=== PATIENT | male | born 1940 | race Caucasian/White ===

== ENCOUNTER 2024-02-11 15:46 | Emergency (ER) | payer MEDICARE, SELFPAY ==
--- NOTE | ~2024-02-11 | CT_ITS ---
EXAMINATION: CT brain wo con DATE: 02/11/2024 17:16 INDICATION: fall . TECHNIQUE: Computed tomography (CT) of the head was performed without intravenous contrast. The mA wa s adjusted according to patient size. Iterative reconstruction technique was employed. The dose-lengt h product was 832.33 mGy-cm. COMPARISON: 10/04/2015. FINDINGS: No acute intracranial hemorrhage or extra-axial fluid collection. No mass or herniation. Prominent lateral, third, and fourth ventricles, increased since the prior kalina dy. No acute ischemic infarct. Unremarkable dural venous sinus attenuation. No acute osseous abnormality. Right frontal contusion. The aerated spaces are clear. Severe chronic white matter change. Atherosclerotic intracranial calcification. 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 IMPRESSION: Increased size of the lateral, third, and fourth ventricles, may represent progressive interval atrop hy versus hydrocephalus. Consider normal pressure hydrocephalus in the differential. No acute intracranial hemorrhage or acute large vessel infarct Reviewed, dictated and finalized at location K. IMPRESSION: Increased size of the lateral, third, and fourth ventricles, may represent prog ressive interval atrophy versus hydrocephalus. Consider normal pressure hydroce phalus in the differential. No acute intracranial hemorrhage or acute large vessel infarct
--- NOTE | ~2024-02-11 | CT_ITS ---
EXAMINATION: CT cervical spine wo con DATE: 02/11/2024 17:15 INDICATION: fall TECHNIQUE: Computed tomography (CT) of the cervical spine was performed without intravenous contrast. Automated exposure control and iterative reconstruction technique were employed. The dose-length pro duct was 912.63 mGy-cm. COMPARISON: None. FINDINGS: Vertebral Body Alignment: 2 mm anterolisthesis at C4-5, presumably on a degenerative basis. Craniocervical and atlantoaxial alignment: Moderate degenerative change. Alignment intact. Osseous structures/fracture: No evidence of a lytic or blastic process in the visualized spine. No e vidence of acute fracture. Cervical soft tissues: The paraspinal soft tissues planes are maintained. Degenerative changes: Multilevel severe degenerative disc disease. Multilevel moderate-severity facet arthropathy. Multilevel moderate and severe degrees of neural foraminal narrowing secondary to degen erative changes. No severe central canal narrowing. IMPRESSION: No acute fracture or traumatic malalignment in the cervical spine. Reviewed, dictated and finalized at location K.
[2024-02-11 15:45] VITALS: BP 161/75; PULSE 67; RESP 20; TEMP 36.7; O2SAT 97
--- NOTE | 2024-02-11 16:05 | ED_ITS ---
HPI - Fall General Chief Complaint: Fall Stated Complaint: fall/ lac Time Seen by Provider: 02/11/24 15:48 History of Present Illness HPI Narrative: [age] old male present to the emergency department from a local memory care unit after having a ground level fall. Patient is unable to recall the events of the fall. Patient did receive a laceration to his forehead. Patient denies any pain or injury. Related Data Allergies Allergy/AdvReac Type Severity Reaction Status Date / Time Sulfa (Sulfonamide Allergy Unknown Verified 10/04/15 12:50 Antibiotics) Review of Systems Review of Systems: All systems reviewed & are unremarkable except as noted in HPI and below Exam Narrative: APPEARANCE: Well appearing, no pain, no distress, well-nourished. HEAD: normocephalic, forehead laceration. EYES: PERRLA/EOMI, conjunctivae clear. NOSE: Normal no drainage EARS:TMS clear with good light reflex. THROAT: Pharynx clear, no exudate. NECK: Supple. No adenopathy, no masses. RESPIRATORY: Airway patent, respirations nonlabored. Clear to auscultation bilaterally, no rales, rhonchi, wheezing. CARDIOVASCULAR: Regular rate and rhythm without murmurs rubs or gallops. ABDOMINAL: Soft, nontender, nondistended, normal bowel sounds MUSCULOSKELETAL: Moves all extremities. Strength/ROM intact, No edema, No calf tenderness. NEURO: Alert. Cranial nerves II through XII intact. Good gait. Good coordination SKIN: Forehead laceration Course Course Emergency Course: Laceration was repaired, patient's imaging was negative and patient was discharged back to his care facility. Vital Signs Vital signs: Vital Signs Temperature 98.1 F 02/11/24 15:45 Pulse Rate 67 02/11/24 15:45 Respiratory Rate 20 02/11/24 15:45 Blood Pressure 161/75 H 02/11/24 15:45 Pulse Oximetry 97 02/11/24 15:45 Oxygen Delivery Room Air 02/11/24 15:45 Temperature 98.1 F 02/11/24 15:45 Pulse Rate 69 02/11/24 18:16 Respiratory Rate 16 02/11/24 18:16 Blood Pressure 137/70 02/11/24 18:16 Pulse Oximetry 97 02/11/24 18:16 Oxygen Delivery Room Air 02/11/24 15:45 Procedures Laceration Laceration 1: Time: 17:28 Site: face Size (cm): 4 Description: linear Depth: simple, single layer Local Anesthetic: lidocaine 1% and with epi Amount of anesthesia used (mL): 3 Pre-repair: wound explored and irrigated ====== Skin Level ====== Skin layer closed with: nylon Size (cm): 6-0 Number of sutures: 5 ====== Subcutaneous Layer ====== ====== Muscle Layer ====== ====== Tendon Layer ====== Discharge Plan Discharge Clinical Impression: Laceration of head, Head injury Patient Disposition: NH Intermediate/Asst Living Condition: Stable Instructions: Antibiotic Form, Laceration (ED) Additional Instructions: Sutures need to be removed in 5-7 days. Have close follow-up with your primary care physician. Wound care as directed Follow-up/Referrals: BLAISE SOSA,HAMLET Lopez M.D. [Non-Staff] -
[2024-02-11 18:16] VITALS: BP 137/70; PULSE 69; RESP 16; O2SAT 97
== END 2024-02-11 20:08 ==
PROVIDERS: Emergency Provider Emergency Medicine
DX: S01.81XA Laceration without foreign body of other part of head, initial encounter (principal); W19.XXXA Unspecified fall, initial encounter
CPT/HCPCS: 12013; 70450; 72125; 99284

== ENCOUNTER 2024-04-17 08:13 | Inpatient (IN) | payer MEDICARE, SELFPAY ==
[2024-04-17] VITALS (35 sets, daily range): BP systolic 132–189; BP diastolic 50–88; PULSE 67–90; RESP 13–23; TEMP 36.1–36.7; O2SAT 92–97; BMI 26.3
--- NOTE | ~2024-04-17 | CT_ITS ---
EXAMINATION: CT cervical spine wo con DATE: 04/17/2024 08:59 INDICATION: Unwitnessed fall. Dementia. TECHNIQUE: Computed tomography (CT) of the cervical spine was performed without intravenous contrast. Automated exposure control and iterative reconstruction technique were employed. The dose-length pro duct was 466.12 mGy-cm. COMPARISON: 02/11/2024 FINDINGS: Severe osteoarthritis at the atlantoaxial articulation. Unchanged 2 mm anterolisthesis C4 on C5. Unch anged chronic mild anterior wedging at C6 and T2. No acute fracture. Moderate disc height loss at C5- C6 and C6-C7. Severe disc height loss at T2-T3 and T3-T4. Mild disc height loss at remaining cervical and upper thoracic levels. Severe bilateral uncovertebral osteoarthritis at C5-C6 and C6-C7. Additio nal severe osteoarthritis at the left C4-C5 and right C2-C3, C3-C4 and C7-T1 facet joints. Mild to mo derate osteoarthritis the remaining cervical facet and uncovertebral joints. There is associated mode rate neural foraminal stenosis bilaterally at C3-C4 through C7-T1 sparing the right C4-C5 neural fora chris is only mild stenosis. Additional mild neural foraminal stenosis on the right at C2-C3. Scleroti c bone island at the T1 spinous process. Atherosclerotic calcifications at the bilateral carotid bulb s. Multinodular goiter with a couple 1.5 cm nodule right thyroid. Visualized apices of the lungs are clear. IMPRESSION: 1. Moderate to severe cervical and upper thoracic spondylosis. No acute osseous abnormality. Reviewed, dictated and finalized at location B. COMA SPECIALIST
--- NOTE | ~2024-04-17 | XR_ITS ---
EXAMINATION: XR hip LT 2V w AP pelvis DATE: 04/17/2024 09:13 INDICATION: Left hip pain post fall TECHNIQUE: Anteroposterior view of the pelvis and anteroposterior and cross-table lateral views of th e left hip were obtained. COMPARISON: None. FINDINGS: Comminuted intratrochanteric fracture of the proximal left femur. There is 1.5 cm medial distraction of the lesser trochanteric fragment. There is approximately 15 degrees varus angulation and of simila r posterior displacement of the femoral head and neck fragment relative to the diaphyseal fracture. N o other fractures identified. Mild bilateral hip and sacroiliac osteoarthritis. Moderate to severe lo wer lumbar spondylosis. Bilateral osteitis contents and celiac. Atherosclerotic calcific lesion along the bilateral femoral arteries. IMPRESSION: 1. Mildly displaced and angulated comminuted intertrochanteric fracture of the proximal left femur. Reviewed, dictated and finalized at location B. Y GRADER AND BLENDER
--- NOTE | ~2024-04-17 | XR_ITS ---
EXAMINATION: XR chest 1V portable DATE: 04/18/2024 08:29 INDICATION: Pneumonia TECHNIQUE: frontal view of the chest was obtained. COMPARISON: Chest radiograph dated 04/17/2024 FINDINGS: Persistent mild patchy airspace opacities at the left lung base which could represent atelectasis or pneumonia. Right lung is clear. No pleural effusion or pneumothorax. Cardiomegaly. Dual lead pacemake r seen with leads projecting over the expected locations of the right atrium and right ventricle. IMPRESSION: 1. Persistent mild patchy airspace opacities in the left lower lung zone which could represent atelec tasis or pneumonia. Reviewed, dictated and finalized at location B. NDER PRESS FEEDER IMPRESSION: 1. Persistent mild patchy airspace opacities in the left lower lung zone which could represent atelectasis or pneumonia.
--- NOTE | ~2024-04-17 | CT_ITS ---
EXAMINATION: CT brain wo con DATE: 04/17/2024 08:58 INDICATION: Unwitnessed fall. Dementia. TECHNIQUE: Computed tomography (CT) of the head was performed without intravenous contrast. Sagittal and coronal reconstructions were performed. The mA was adjusted according to patient size. Iterative reconstruction technique was employed. The dose-length product was 1513.33 mGy-cm. COMPARISON: head CT dated 02/11/2024 FINDINGS: No fracture. Unchanged old lacunar infarct at the right basal ganglia. There is extensive scattered w emery matter hypoattenuation consistent with chronic small vessel ischemic disease. No acute intracran ial hemorrhage, acute infarction or abnormal extra axial fluid collection. Symmetric prominence of th e sulci, ventricles and subarachnoid spaces about the cerebral hemispheres consistent with moderate t o severe age-appropriate diffuse cerebral and cerebellar volume loss. No mass/mass effect. Mild mucos al thickening in the paranasal sinuses with some bubbly mucus in the right sphenoid sinus. The orbits and mastoid air cells are normal. Intracranial calcified cerebral atherosclerosis is noted. IMPRESSION: 1. No fracture or acute intracranial process. 2. 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 3. Age-related changes including moderate to severe diffuse volume loss and extensive white matter hy poattenuation consistent with chronic small vessel ischemic disease. Reviewed, dictated and finalized at location B. BALL SCOUT IMPRESSION: 1. No fracture or acute intracranial process. 2. 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 3. Age-related changes including moderate to severe diffuse volume loss and ext ensive white matter hypoattenuation consistent with chronic small vessel ischem ic disease.
--- NOTE | ~2024-04-17 | XR_ITS ---
EXAMINATION: XR surgery orthopedic DATE: 04/18/2024 14:42 INDICATION: Left hip intertrochanteric nailing TECHNIQUE: 5 fluoroscopic images of the left femur were obtained during procedure performed by Dr. Gerard clifton. Radiologist was not present for the imaging or procedure. The amount of fluoroscopy time used during this procedure was 1.8 minutes. Total DAP was 8.724 Gycm^2 COMPARISON: Left hip radiographs dated 04/17/2024 FINDINGS: Interval reduction of the previously noted mildly comminuted intratrochanteric fracture of the proxim al left femur which is now in near-anatomic alignment. The fracture is not fixed with an antegrade in tramedullary elen with and femoral neck dynamic compression screw and second smaller diameter femoral neck screw as well as a subtrochanteric interlocking screw. No new fractures identified. Mild osteoar thritis at the left hip. Atherosclerotic calcification is along the left femoral artery. IMPRESSION: 1. Near-anatomic alignment post open reduction internal fixation of a comminuted intratrochanteric fr acture of the proximal left femur. See procedure note for further detail. Reviewed, dictated and finalized at location B. SHELVER IMPRESSION: 1. Near-anatomic alignment post open reduction internal fixation of a comminute d intratrochanteric fracture of the proximal left femur. See procedure note for further detail.
--- NOTE | ~2024-04-17 | XR_ITS ---
EXAMINATION: XR chest 1V DATE: 04/17/2024 09:13 INDICATION: Unwitnessed fall with left hip fracture. TECHNIQUE: frontal view of the chest was obtained. COMPARISON: Chest radiograph dated 10/04/2015 FINDINGS: Mild opacities with increased interstitial pattern and bronchial wall thickening in the left lower jorge ng zone. Right lung remains clear. No pleural effusion or pneumothorax. Cardiomegaly. Dual lead pacem francisco javier seen with leads projecting over the expected locations of the right atrium and right ventricle. IMPRESSION: 1. Mild opacities with bronchial wall thickening in the left lower lung zone which could represent as ymmetric mild pulmonary edema or pneumonia. 2. Cardiomegaly. Reviewed, dictated and finalized at location B. VIDUAL PENSION ADVISER IMPRESSION: 1. Mild opacities with bronchial wall thickening in the left lower lung zone wh ich could represent asymmetric mild pulmonary edema or pneumonia. 2. Cardiomegaly.
--- NOTE | 2024-04-17 10:06 | ECG_ITS ---
Test Date: 2024-04-17 13:29:07 Measurements Intervals [place] Rate: 88 P: 0 IN: 0 QRS: -56 QRSD: 181 T: 92 QT: 432 QTc: 525 Interpretive Statements ATRIAL SENSE ELECTRONIC VENTRICULAR PACEMAKER WITH INHIBITION BORDERLINE T WAVE ABNORMALITY- ANTEROLATERAL LEADS BASELINE ARTIFACT- I, AVR, AVL, AVF, V1-V6 NO FURTHER INTERPRETATION IS POSSIBLE BORDERLINE ECG No previous ECG available for comparison Electronically Signed On 04-17-2024 13:32:23 STRATEGIC PARTNERSHIP REPRESENTATIVE by Carlin Vo D.O.
[2024-04-17] MEDS: HYDROmorphone HCL INJ (*CRX) 1 MG/ML SYR 0.5 MG IV PUSH (11:38)
[2024-04-17] MEDS: SODIUM CHLORIDE 0.9% IV 1,000 ML 999 ML IV CONT (11:38)
[2024-04-17 11:44] LABS: Basophils Percent Auto 0.2 % (0.2-1.2); Eosinophils Percent Auto 0.1 % (0-4.4); Hematocrit 35.7 % (42.0-52.0); Hemoglobin 12.3 g/dL (14.0-18.0); Immature Granulocyte Absolute 0.09 K/mm3 (0.00-0.031); Immature Granulocyte Percent A 0.6 % (0-0.5); Lymphocytes Absolute Auto 0.77 K/mm3 (0.9-3.2); Lymphocytes Percent Auto 5.1 % (18.3-44.2); Mean Corpuscular HGB Conc 34.5 g/dl (32-36); Mean Corpuscular Hemoglobin 30.1 pg (26-34); Mean Corpuscular Volume 87.5 fl (80-100); Mean Platelet Volume 10.3 fl (7.4-10.4); Monocytes Absolute Auto 0.7 K/mm3 (0.1-0.6); Monocytes Percent Auto 4.9 % (2.6-8.5); Neutrophils Absolute Auto 13.4 K/mm3 (1.3-6.7); Neutrophils Percent Auto 89.1 % (45.5-73.1); Platelet Count Result 177 k/mm3 (150-375); Red Blood Count 4.08 M/mm3 (4.6-6.20); Red Cell Distribution Width 13.3 % (11.5-14.5)
[2024-04-17 11:55] LABS: Prothrombin Time 13.8 Seconds (11.1-14.7)
[2024-04-17 11:56] LABS: Partial Thromboplastin Time 29.1 Seconds (22.3-36.8)
[2024-04-17 11:58] LABS: Alanine Aminotransferase 35 U/L (6-50); Albumin Level 3.9 g/dL (3.5-5.1); Alkaline Phosphatase 106 U/L (38-126); Anion Gap 4 mmol/L (4-12); Aspartate Amino Transferase 31 U/L (17-59); Bilirubin,Total 0.8 mg/dL (0.2-1.3); Blood Urea Nitrogen 11 mg/dL (9-20); Calcium 9.3 mg/dL (8.4-10.2); Carbon Dioxide 26 mmol/L (22-30); Chloride 109 mmol/L (98-107); Estimated Glomerular Filt Rate > 60; Glucose 112 mg/dL (65-110); Potassium 3.7 mmol/L (3.4-5.0); Sodium 139 mmol/L (137-145)
--- NOTE | 2024-04-17 12:08 | PC.NURSE ---
UA obtained via straight cath. Difficult to pass catheter. Attempted deng catheter placement unsuccessfully x 2 attempts. Clean depends applied on pt. Medicated per MAR. Will attempt coude next. Pt given additional warm blankets. Call light in reach.
[2024-04-17 12:39] LABS: Add Urine Microscopic? YES; Appearance Urine Cloudy (Clear); Bacteria Urine None Seen /hpf; Bilirubin Urine Negative (Negative); Blood Urine Negative (Negative); Color Urine Yellow (Yellow); Glucose Urine UA Negative (Negative); Ketones Urine Negative (Negative); Leukocyte Esterase Ur Negative LEU/UL (Negative); Nitrate Urine Negative (Negative); Non Pathogenic Casts 0-2; Protein Urine Negative (Negative); RBC Urine 0-2 /hpf (0-2); Specific Grav Ur 1.016 (1.001-1.035); Squamous Epithelial Cell Urine None Seen /hpf (Few); WBC Urine 0-5 /hpf (0-3); pH Urine 7.5 (5.0-9.0)
--- NOTE | 2024-04-17 12:54 | ED.GENADULT ---
HPI - General Adult General Chief complaint: Fall Stated complaint: unwitnessed glf, L hip pain Time Seen by Provider: 04/17/24 08:24 History of Present Illness HPI narrative: This is an 84-year-old male with severe dementia presenting after a unwitnessed ground level far. patient has severe dementia and cannot provide much meaningful history. The interview other than his left hip hurts. He is denying any other complaints. Related Data Allergies Allergy/AdvReac Type Severity Reaction Status Date / Time Sulfa (Sulfonamide Allergy Unknown Unknown Verified 04/17/24 08:29 Antibiotics) Exam Narrative: APPEARANCE: No apparent distress. Head: atraumatic. EYES: EOMI, NOSE: Atraumatic NECK: Trachea midline RESPIRATORY: No increased rate of breathing clear to auscultation CARDIOVASCULAR: RRR, no peripheral edema ABDOMINAL: Non-distended MUSCULOSKELETAl: Left leg is shortened laterally rotated, foot is neurovascularly intact NEURO: Alert. Moving 4/4 extremities SKIN:: Warm, dry. Normal color PSYCHIATRIC: Normal affect Course Vital Signs Vital signs: Vital Signs Temperature 96.9 F L 04/17/24 08:15 Pulse Rate 73 04/17/24 08:15 Respiratory Rate 16 04/17/24 08:15 Blood Pressure 156/55 H 04/17/24 08:15 Pulse Oximetry 95 04/17/24 08:15 Oxygen Delivery Room Air 04/17/24 08:15 Temperature 96.9 F L 04/17/24 08:15 Pulse Rate 81 04/17/24 11:32 Respiratory Rate 22 H 04/17/24 11:32 Blood Pressure 135/88 04/17/24 11:32 Pulse Oximetry 97 04/17/24 11:32 Oxygen Delivery Room Air 04/17/24 08:15 Medical Decision Making [facility] Narrative Medical decision making narrative: -Course: 84-year-old male dementia presenting after a ground level fall. Patient found have a left intertrochanteric hip fracture. Also found have pneumonia on x-ray with a white count of 15. No oxygen requirements. Patient started on ceftriaxone and azithromycin. Given fluid resuscitation and pain control. Patient be admitted the hospital for further management. -DDX includes but is not limited to: Hip fracture, bony injury, soft tissue injury sepsis UTI pneumonia dehydration -Co-morbidities complicating care: dementia -Independent interpretation of studies: labs and imaging reviewed -Discussion of Management/Consultants: Jean Ferris -Shared decision making / Disposition: Admitted Vital Signs Vital Signs: Vital Signs Temperature 96.9 F L 04/17/24 08:15 Pulse Rate 73 04/17/24 08:15 Respiratory Rate 16 04/17/24 08:15 Blood Pressure 156/55 H 04/17/24 08:15 Pulse Oximetry 95 04/17/24 08:15 Oxygen Delivery Room Air 04/17/24 08:15 Temperature 96.9 F L 04/17/24 08:15 Pulse Rate 81 04/17/24 11:32 Respiratory Rate 22 H 04/17/24 11:32 Blood Pressure 135/88 04/17/24 11:32 Pulse Oximetry 97 04/17/24 11:32 Oxygen Delivery Room Air 04/17/24 08:15 Lab Data 04/17/24 11:39 04/17/24 11:39 Labs: Lab Results 04/17/24 04/17/24 Range/Units 11:39 12:03 WBC 15.0 H (4.5-10.0) K/mm3 RBC 4.08 L (4.6-6.20) M/mm3 Hgb 12.3 L (14.0-18.0) g/dL Hct 35.7 L (42.0-52.0) % MCV 87.5 (80-100) fl MCH 30.1 (26-34) pg MCHC 34.5 (32-36) g/dl RDW 13.3 (11.5-14.5) % Plt Count 177 (150-375) k/mm3 MPV 10.3 (7.4-10.4) fl Immature Gran % (Auto) 0.6 H (0-0.5) % Neut % (Auto) 89.1 H (45.5-73.1) % Lymph % (Auto) 5.1 L (18.3-44.2) % [place] % (Auto) 4.9 (2.6-8.5) % Eos % (Auto) 0.1 (0-4.4) % Baso % (Auto) 0.2 (0.2-1.2) % Lymph # (Auto) 0.77 L (0.9-3.2) K/mm3 [place] # (Auto) 0.7 H (0.1-0.6) K/mm3 Eos # (Auto) 0.0 (0-0.3) K/mm3 Baso # (Auto) 0.0 (0.0-0.1) K/mm3 Abs Immat Gran (auto) 0.09 H (0.00-0.031) K/mm3 Absolute Neuts (auto) 13.4 H (1.3-6.7) K/mm3 Absolute Nucleated RBC 0.000 (0.0-0.012) K/mm3 Nucleated RBC % 0.0 (0.0-0.2) % PT 13.8 (11.1-14.7) Seconds INR 1.0 APTT 29.1 (22.3-36.8) Seconds Sodium 139 (137-145) mmol/L Potassium 3.7 (3.4-5.0) mmol/L Chloride 109 H (98-107) mmol/L Carbon Dioxide 26 (22-30) mmol/L Anion Gap 4 (4-12) mmol/L BUN 11 (9-20) mg/dL Creatinine 0.60 L (0.7-1.3) mg/dL Estim Creat Clear Calc Not Reportable Estimated GFR > 60 (59 - ) Glucose 112 H (65-110) mg/dL Calcium 9.3 (8.4-10.2) mg/dL Total Bilirubin 0.8 (0.2-1.3) mg/dL AST 31 (17-59) U/L ALT 35 (6-50) U/L Alkaline Phosphatase 106 (38-126) U/L Total Protein 7.0 (6.3-8.2) g/dL Albumin 3.9 (3.5-5.1) g/dL Urine Color Yellow (Yellow) Urine Appearance Cloudy H (Clear) Urine pH 7.5 (5.0-9.0) Ur Specific [place] 1.016 (1.001-1.035) Urine Protein Negative (Negative) mg/dL Urine Glucose (UA) Negative (Negative) mg/dL Urine Ketones Negative (Negative) mg/dL Ur Blood (Man) Negative (Negative) Urine Nitrate Negative (Negative) Urine Bilirubin Negative (Negative) Urine Urobilinogen 1.0 (<2.0) mg/dL Leukocyte Esterase Rfl Negative (Negative) JESSICA/UL Urine RBC 0-2 (0-2) /hpf Urine WBC 0-5 (0-3) /hpf Ur Squamous Epith Cells None seen (Few) /hpf Urine Bacteria None seen /hpf Urine Casts 0-2 Discharge Plan Discharge Clinical Impression: Hip fracture, Pneumonia, Dementia Patient Disposition: Still a Patient Condition: Stable Follow-up/Referrals: Maximus,Alexander Castillo [Other]
[2024-04-17] MEDS: AZITHROMYCIN 500 MG/NS 250 ML 500 MG/250 ML BAG 250 MG IVPB (14:13)
--- NOTE | 2024-04-17 14:37 | ECG_ITS ---
Test Date: 2024-04-17 14:42:10 Measurements Intervals [place] Rate: 89 P: 0 SD: 0 QRS: 16 QRSD: 87 T: -38 QT: 349 QTc: 426 Interpretive Statements ATRIAL FLUTTER/TACHYCARDIA WITH VARIABLE BLOCK VOLTAGE CRITERIA FOR LVH CONSIDER INFERIOR INFARCT, AGE INDETERMINATE NONSPECIFIC ST & T-WAVE ABNORMALITY- ANTEROLATERAL LEADS BASELINE ARTIFACT- I, II, AVR, AVF, V2, V4-V6 ABNORMAL ECG Compared to ECG 04/17/2024 13:29:07 ELECTRONIC VENTRICULAR PACEMAKER NO LONGER PRESENT Electronically Signed On 04-17-2024 14:49:42 CUTTING TABLE OPERATOR by Carlin Vo D.O.
--- NOTE | 2024-04-17 15:12 | P.HP_ITS ---
H&P: HPI History of Present Illness Date/Time: 04/17/24 15:12 Chief Complaint: Fall Left hip pain Narrative: This is an 84-year-old male with a significant past medical history severe Alzheimer's dementia, Anxiety, sick sinus syndrome status post pacemaker, BPH, hypertension, hyperlipidemia, TIA, hard of hearing, vitamin-D deficiency who presented to the hospital for evaluation after a ground level fall landing on his left hip. Patient is not a good historian and most of presenting illness was obtained from the medical record. Patient was found down on the ground after sustaining a fall. The fall was unwitnessed. He immediately started having pain in his left hip and was brought to the hospital for further investigation. 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 Chest x-ray showed mild opacities with bronchial wall thickening in the left lower lung zone, cardiomegaly. Cervical spine CT showed moderate to severe cervical and upper thoracic spondylosis, no acute osseous abnormality. Hip and pelvis x-ray showed mildly displaced and angulated comminuted intratrochanteric fracture of the proximal left femur. Initial labs showed a white blood cell count of 15.0, hemoglobin 12.3, INR 1.0, chloride 109, creatinine 0.60. A UA was obtained which showed a cloudy in appearance however was unremarkable. Blood cultures were obtained and are pending. EKG shown a flutter with variable block, rate of 89, QTC 426. Patient was given 1 L of normal saline, dilaudid, Rocephin and azithromycin while in the ED. orthopedic surgery was consulted. Review of Systems Review of Systems: ROS unobtainable: Yes unobtainable due to mental status PMFSH Past Medical History Medical History Actinic keratosis Anxiety BPH (benign prostatic hyperplasia) Hyperlipidemia Hypertension Pacemaker Sick sinus syndrome TIA (transient ischemic attack) Vitamin D deficiency Surgical History Surgical History History of permanent cardiac pacemaker placement Family History Family History Other Unknown family medical history Social History Social History Smoking status: Never smoker Alcohol intake: never Substance use: never Spiritual care concerns: No Meds Home Medications and Allergies Home Medications Medication Instructions Recorded Confirmed Type acetaminophen 650 mg tablet 650 mg PO Q4H PRN Pain (Scale 04/17/24 04/17/24 History Score 1-3) amlodipine 5 mg tablet 5 mg PO DAILY 04/17/24 04/17/24 History aspirin 325 mg tablet 325 mg PO DAILY 04/17/24 04/17/24 History atorvastatin 20 mg tablet 20 mg PO DAILY 04/17/24 04/17/24 History cholecalciferol (vitamin D3) 50 50 mcg PO DAILY 04/17/24 04/17/24 History mcg (2,000 unit) capsule lisinopril 40 mg tablet 40 mg PO DAILY 04/17/24 04/17/24 History memantine 10 mg tablet 10 mg PO QPM 04/17/24 04/17/24 History multivitamin 1 tablet PO DAILY 04/17/24 04/17/24 History triamcinolone acetonide 0.1 % 1 applic topical BID PRN Rash 04/17/24 04/17/24 History topical cream Allergies Allergy/AdvReac Type Severity Reaction Status Date / Time Sulfa (Sulfonamide Allergy Unknown Unknown Verified 04/17/24 18:38 Antibiotics) Vital Signs Vital Signs - 24 hr 04/17/24 08:15 04/17/24 08:25 04/17/24 08:30 Temperature 96.9 F L Pulse Rate 73 69 76 Respiratory Rate 16 13 18 Blood Pressure 156/55 H Pulse Oximetry 95 96 95 Oxygen Delivery Room Air 04/17/24 08:31 04/17/24 08:45 04/17/24 09:12 Temperature Pulse Rate 77 76 68 Respiratory Rate 14 18 17 Blood Pressure 168/60 H Pulse Oximetry 94 93 92 Oxygen Delivery 04/17/24 09:15 04/17/24 09:30 04/17/24 09:45 Temperature Pulse Rate 69 69 67 Respiratory Rate 17 20 14 Blood Pressure Pulse Oximetry 92 95 Oxygen Delivery 04/17/24 10:12 04/17/24 10:15 04/17/24 10:17 Temperature Pulse Rate 76 86 78 Respiratory Rate 20 17 17 Blood Pressure 148/52 H Pulse Oximetry 95 Oxygen Delivery 04/17/24 10:41 04/17/24 10:58 04/17/24 11:02 Temperature Pulse Rate 77 84 Respiratory Rate 19 20 Blood Pressure 174/79 H Pulse Oximetry 97 96 Oxygen Delivery 04/17/24 11:28 04/17/24 11:30 04/17/24 11:32 Temperature Pulse Rate 79 79 81 Respiratory Rate 16 20 22 H Blood Pressure 135/88 Pulse Oximetry 97 Oxygen Delivery 04/17/24 11:33 04/17/24 11:45 04/17/24 12:00 Temperature Pulse Rate 81 82 83 Respiratory Rate 22 H 22 H 19 Blood Pressure Pulse Oximetry Oxygen Delivery 04/17/24 12:02 04/17/24 12:15 04/17/24 12:30 Temperature Pulse Rate 82 81 Respiratory Rate 22 H 22 H Blood Pressure 150/70 H Pulse Oximetry Oxygen Delivery 04/17/24 12:31 04/17/24 12:45 04/17/24 13:00 Temperature Pulse Rate 78 82 80 Respiratory Rate 20 23 H 21 H Blood Pressure 189/60 H Pulse Oximetry Oxygen Delivery 04/17/24 13:15 04/17/24 13:24 04/17/24 13:48 Temperature Pulse Rate 85 86 90 Respiratory Rate 17 20 21 H Blood Pressure 148/72 H 139/56 L Pulse Oximetry Oxygen Delivery 04/17/24 14:15 04/17/24 14:17 04/17/24 14:48 Temperature Pulse Rate 81 88 Respiratory Rate 19 20 Blood Pressure 160/72 H 145/50 H Pulse Oximetry Oxygen Delivery Exam Narrative: General: In no acute distress, well nourished Head: atraumatic, no encephalopathy Eyes: PERRLA, sclera clear ENT: moist mucous membranes, nasal passages clear Neck: supple, no JVD, no adenopathy, trachea midline Cardiac: Normal S1 and S2. No murmur, gallops or friction rubs, peripheral pulses intact. Respiratory: Lungs clear to auscultation, no adventitious lung sounds, currently on room air Gastrointestinal: soft, non-distended, non-tender, normoactive bowel sounds. : voiding without difficulty. Extremities: moves all extremities Skin: clean, dry, intact. No wounds or lesions. Neuro: Alert and confused, cranial nerves intact, no neuro deficits. Psych: normal mood, normal affect, interactive H&P: Results Labs Labs: Short CBC 04/17/24 Range/Units 11:39 WBC 15.0 H (4.5-10.0) K/mm3 Hgb 12.3 L (14.0-18.0) g/dL Hct 35.7 L (42.0-52.0) % Plt Count 177 (150-375) k/mm3 BMP 04/17/24 11:39 Sodium 139 Potassium 3.7 Chloride 109 H Carbon Dioxide 26 BUN 11 Creatinine 0.60 L Glucose 112 H Calcium 9.3 Liver Function 04/17/24 Range/Units 11:39 Total Bilirubin 0.8 (0.2-1.3) mg/dL AST 31 (17-59) U/L ALT 35 (6-50) U/L Alkaline Phosphatase 106 (38-126) U/L Albumin 3.9 (3.5-5.1) g/dL Urine 04/17/24 Range/Units 12:03 Urine Color Yellow (Yellow) Urine Appearance Cloudy H (Clear) Urine pH 7.5 (5.0-9.0) Ur Specific [place] 1.016 (1.001-1.035) Urine Protein Negative (Negative) mg/dL Urine Glucose (UA) Negative (Negative) mg/dL Imaging CT scan - head: Radiologist's impression: EXAMINATION: CT brain wo con DATE: 04/17/2024 08:58 INDICATION: Unwitnessed fall. Dementia. TECHNIQUE: Computed tomography (CT) of the head was performed without intravenous contrast. Sagittal and coronal reconstructions were performed. The mA was adjusted according to patient size. Iterative reconstruction technique was employed. The dose-length product was 1513.33 mGy-cm. COMPARISON: head CT dated 02/11/2024 FINDINGS: No fracture. Unchanged old lacunar infarct at the right basal ganglia. There is extensive scattered white matter hypoattenuation consistent with chronic small vessel ischemic disease. No acute intracranial hemorrhage, acute infarction or abnormal extra axial fluid collection. Symmetric prominence of the sulci, ventricles and subarachnoid spaces about the cerebral hemispheres consistent with moderate to severe age-appropriate diffuse cerebral and cerebellar volume loss. No mass/mass effect. Mild mucosal thickening in the paranasal sinuses with some bubbly mucus in the right sphenoid sinus. The orbits and mastoid air cells are normal. Intracranial calcified cerebral atherosclerosis is noted. IMPRESSION: 1. No fracture or acute intracranial process. 2. 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 3. Age-related changes including moderate to severe diffuse volume loss and extensive white matter hypoattenuation consistent with chronic small vessel ischemic disease. Reviewed, dictated and finalized at location B. [employer] [employer] Chest x-ray: Radiologist's impression: EXAMINATION: XR chest 1V DATE: 04/17/2024 09:13 INDICATION: Unwitnessed fall with left hip fracture. TECHNIQUE: frontal view of the chest was obtained. COMPARISON: Chest radiograph dated 10/04/2015 FINDINGS: Mild opacities with increased interstitial pattern and bronchial wall thickening in the left lower lung zone. Right lung remains clear. No pleural effusion or pneumothorax. Cardiomegaly. Dual lead pacemaker seen with leads projecting over the expected locations of the right atrium and right ventricle. IMPRESSION: 1. Mild opacities with bronchial wall thickening in the left lower lung zone which could represent asymmetric mild pulmonary edema or pneumonia. 2. Cardiomegaly. Reviewed, dictated and finalized at location B. [employer] DIRECT[employer] cervical spine CT: Radiologist's impression: EXAMINATION: CT cervical spine wo con DATE: 04/17/2024 08:59 INDICATION: Unwitnessed fall. Dementia. TECHNIQUE: Computed tomography (CT) of the cervical spine was performed without intravenous contrast. Automated exposure control and iterative reconstruction technique were employed. The dose-length product was 466.12 mGy-cm. COMPARISON: 02/11/2024 FINDINGS: Severe osteoarthritis at the atlantoaxial articulation. Unchanged 2 mm anterolisthesis C4 on C5. Unchanged chronic mild anterior wedging at C6 and T2. No acute fracture. Moderate disc height loss at C5-C6 and C6-C7. Severe disc height loss at T2-T3 and T3-T4. Mild disc height loss at remaining cervical and upper thoracic levels. Severe bilateral uncovertebral osteoarthritis at C5-C6 and C6-C7. Additional severe osteoarthritis at the left C4-C5 and right C2-C3, C3-C4 and C7-T1 facet joints. Mild to moderate osteoarthritis the remaining cervical facet and uncovertebral joints. There is associated moderate neural foraminal stenosis bilaterally at C3-C4 through C7-T1 sparing the right C4-C5 neural foramina is only mild stenosis. Additional mild neural foraminal stenosis on the right at C2-C3. Sclerotic bone island at the T1 spinous process. Atherosclerotic calcifications at the bilateral carotid bulbs. Multinodular goiter with a couple 1.5 cm nodule right thyroid. Visualized apices of the lungs are clear. IMPRESSION: 1. Moderate to severe cervical and upper thoracic spondylosis. No acute osseous abnormality. Reviewed, dictated and finalized at location B. [employer]AL STR[employer]GY DIRECT[employer] hip/pelvis x-ray: Radiologist's impression: EXAMINATION: XR hip LT 2V w AP pelvis DATE: 04/17/2024 09:13 INDICATION: Left hip pain post fall TECHNIQUE: Anteroposterior view of the pelvis and anteroposterior and cross- table lateral views of the left hip were obtained. COMPARISON: None. FINDINGS: Comminuted intratrochanteric fracture of the proximal left femur. There is 1.5 cm medial distraction of the lesser trochanteric fragment. There is approximately 15 degrees varus angulation and of similar posterior displacement of the femoral head and neck fragment relative to the diaphyseal fracture. No other fractures identified. Mild bilateral hip and sacroiliac osteoarthritis. Moderate to severe lower lumbar spondylosis. Bilateral osteitis contents and celiac. Atherosclerotic calcific lesion along the bilateral femoral arteries. IMPRESSION: 1. Mildly displaced and angulated comminuted intertrochanteric fracture of the proximal left femur. Reviewed, dictated and finalized at location B. [employer]AL STR[employer]GY DIRECT[employer] Assessment and Plan Assessment and plan (1) Fall: Code(s): W19.XXXA - Unspecified fall, initial encounter Status: Acute Assessment and Plan: patient sustained a ground level fall on to his left hip today * head CT was negative for any acute fracture or intracranial process, showed old lacunar infarct in the right basal ganglia, age-related changes including moderate to severe diffuse volume loss and extensive white matter hypoattenuation consistent with chronic small-vessel ischemic disease. * Cervical spine x-ray showed moderate to severe cervical and upper thoracic spondylosis, no acute osseous abnormality * hip and pelvis x-ray shown mildly displaced and angulated comminuted intra trochanteric fracture of the proximal left femur * continue fall precautions (2) Hip fracture: Code(s): S72.009A - Fracture of unspecified part of neck of unspecified femur, initial encounter for closed fracture Status: Acute Assessment and Plan: * hip and pelvis x-ray shown mildly displaced and angulated comminuted intratrochanteric fracture of the proximal left femur * continue pain control * continue hip precautions * bed rest for now * Orthopedic surgery consulted * NPO after midnight for potential surgery * continue IV fluid * Case coordination consulted for outpatient rehab needs * continue pain and nausea control (3) Pneumonia: Code(s): J18.9 - Pneumonia, unspecified organism Status: Acute Assessment and Plan: * chest x-ray showing mild opacities with bronchial wall thickening in the left lower lung zone representing pneumonia, cardiomegaly * patient was started on azithromycin and Rocephin * blood cultures were obtained and are pending * white blood cell count 15.0 * will check procalcitonin * MRSA negative (4) Dementia: Code(s): F03.90 - Unspecified dementia, unspecified severity, without behavioral disturbance, psychotic disturbance, mood disturbance, and anxiety Status: Chronic Assessment and Plan: * continue Namenda (5) Hyperlipidemia: Code(s): E78.5 - Hyperlipidemia, unspecified Status: Chronic Assessment and Plan: * continue aspirin and atorvastatin (6) Hypertension: Code(s): I10 - Essential (primary) hypertension Status: Chronic Assessment and Plan: * blood pressure ranging 139/56 to 189/60 * continue amlodipine and lisinopril Quality VTE Prophylaxis VTE prophylaxis: mechanical ordered Hospitalist MIPS Advance Care Plan I have confirmed that the patient's Advanced Care Plan is present, code status is documented, or surrogate decision maker is listed in patient medical record.: Yes Medication Reconciliation I have utilized all available resources to obtain, update and review the patients current medications (includes all prescriptions, OTC, herbals, cannabis, and nutritional supplements).: Yes
[2024-04-17 16:05] LABS: Procalcitonin < 0.0 ng/mL
--- NOTE | 2024-04-17 16:05 | PC.NURSE ---
Left message at facility for report.
--- NOTE | 2024-04-17 16:32 | PC.NURSE ---
patient removed his external catheter and urinated on the bed. patient placed in depend and patient took that off as well and urinated on bed. linens changed again and patient repositioned. patient continues to lay on his left side despite the pain he feels when rolling onto that side. patient will not cooperate and let this RN reposition patient to a more comfortable position off of the broken hip.
--- NOTE | 2024-04-17 16:36 | PC.NURSE ---
Spoke with Maria Victoria from [facility] for update
[2024-04-17 16:58] LABS: MRSA (PCR) NOT DETECTED (NOT DETECTE)
[2024-04-17] MEDS: ONDANSETRON INJ 4 MG/2 ML VIAL IV PUSH (17:09)
[2024-04-17] MEDS: MORPHINE SULFATE (*CRX) 2 MG/ML INJ IV PUSH (17:09)
[2024-04-17] MEDS: DEXTROSE 5%/0.45% SOD CHL 1,000 ML 75 ML IV CONT (17:19)
--- NOTE | 2024-04-17 17:25 | PM.CNOR ---
Assessment and Plan Assessment and plan (1) Intertrochanteric fracture of left femur: Qualifiers: Encounter type: initial encounter Fracture alignment: displaced Fracture type: closed Qualified Code(s): S72.142A - Displaced intertrochanteric fracture of left femur, initial encounter for closed fracture Code(s): S72.142A - Displaced intertrochanteric fracture of left femur, initial encounter for closed fracture Status: Acute Assessment and Plan: Patient is an 84-year-old gentleman was admitted through the emergency room earlier today with a varus displaced left intertrochanteric hip fracture 3 part. Patient has severe to he is unable to provide history. I reviewed his x-rays of the left hip and pelvis. Patient also had imaging CT scan of the head and cervical spine. There are significant degenerative changes but no evidence of acute trauma to those areas. Chest x-ray showed cardiomegaly. [place] [address], hemoglobin 12.3, platelets 157144. His creatinine was 0.6 GFR greater than 60. A TSH is pending. Urine showed only 0-5 white blood cells. On examination he is a very pleasant gentleman in no acute distress. The nurse was at the bedside and advised me that he had just given so he has been much more calm. A little while ago he was complaining of severe pain and somewhat agitated. The patient is very articulate and well spoken. When a adjusted his sheets he said thank you kindly. When I asked diffuse having any pain lying on his left side in the lateral decubitus position he said no. However, he answered he was in [facility] when asked where he was and he does not follow commands even though he agreed to wiggle his toes he did not. He denies numbness. I could not feel pedal pulses but the Collar and temperature of his feet was normal. He denied any other pain. Assessment and plan Patient is an 84-year-old gentleman with history of severe dementia now who presents with a displaced 3 part left intertrochanteric hip fracture. I am going to call his to discuss the options with her in detail and see how she would like to proceed. Treatment for this fracture be a trochanteric nail and hip screw device to stabilize the fracture and allow the patient to be mobilized. Even if the patient is nonambulatory, internal fixation is generally helpful in allowing toilet care and general nursing care with greater degree of comfort. Given his advanced age, dementia, and debilitated state, risk of medical complications and mortality is high. In some patients with severe dementia, sometimes non surgical treatment is chosen to avoid putting his loved 1 through more trauma of surgery and in these cases patients are generally placed under hospice care and provide measures. Mortality rate is high with nonsurgical treatment and generally higher than with surgical treatment in these cases. History of Present Illness HPI Consult date: 04/18/24 Chief complaint: Hip [facility] Past Medical History Medical History Actinic keratosis Anxiety BPH (benign prostatic hyperplasia) Hyperlipidemia Hypertension Pacemaker Sick sinus syndrome TIA (transient ischemic attack) Vitamin D deficiency Surgical History Surgical History History of permanent cardiac pacemaker placement Family History Family History Other Unknown family medical history Social History Social History Smoking status: Never smoker Alcohol intake: never Substance use: never Spiritual care concerns: No Meds Home Medications and Allergies Home Medications Medication Instructions Recorded Confirmed Type acetaminophen 650 mg tablet 650 mg PO Q4H PRN Pain (Scale 04/17/24 04/17/24 History Score 1-3) amlodipine 5 mg tablet 5 mg PO DAILY 04/17/24 04/17/24 History aspirin 325 mg tablet 325 mg PO DAILY 04/17/24 04/17/24 History atorvastatin 20 mg tablet 20 mg PO DAILY 04/17/24 04/17/24 History cholecalciferol (vitamin D3) 50 50 mcg PO DAILY 04/17/24 04/17/24 History mcg (2,000 unit) capsule lisinopril 40 mg tablet 40 mg PO DAILY 04/17/24 04/17/24 History memantine 10 mg tablet 10 mg PO QPM 04/17/24 04/17/24 History multivitamin 1 tablet PO DAILY 04/17/24 04/17/24 History triamcinolone acetonide 0.1 % 1 applic topical BID PRN Rash 04/17/24 04/17/24 History topical cream Allergies Allergy/AdvReac Type Severity Reaction Status Date / Time Sulfa (Sulfonamide Allergy Unknown Unknown Verified 04/17/24 18:38 Antibiotics) Vital Signs Vital Signs - 24 hr 04/17/24 08:15 04/17/24 08:25 04/17/24 08:30 Temperature 36.1 C L Pulse Rate 73 69 76 Respiratory Rate 16 13 18 Blood Pressure 156/55 H Pulse Oximetry 95 96 95 Oxygen Delivery Room Air 04/17/24 08:31 04/17/24 08:45 04/17/24 09:12 Temperature Pulse Rate 77 76 68 Respiratory Rate 14 18 17 Blood Pressure 168/60 H Pulse Oximetry 94 93 92 Oxygen Delivery 04/17/24 09:15 04/17/24 09:30 04/17/24 09:45 Temperature Pulse Rate 69 69 67 Respiratory Rate 17 20 14 Blood Pressure Pulse Oximetry 92 95 Oxygen Delivery 04/17/24 10:12 04/17/24 10:15 04/17/24 10:17 Temperature Pulse Rate 76 86 78 Respiratory Rate 20 17 17 Blood Pressure 148/52 H Pulse Oximetry 95 Oxygen Delivery 04/17/24 10:41 04/17/24 10:58 04/17/24 11:02 Temperature Pulse Rate 77 84 Respiratory Rate 19 20 Blood Pressure 174/79 H Pulse Oximetry 97 96 Oxygen Delivery 04/17/24 11:28 04/17/24 11:30 04/17/24 11:32 Temperature Pulse Rate 79 79 81 Respiratory Rate 16 20 22 H Blood Pressure 135/88 Pulse Oximetry 97 Oxygen Delivery 04/17/24 11:33 04/17/24 11:45 04/17/24 12:00 Temperature Pulse Rate 81 82 83 Respiratory Rate 22 H 22 H 19 Blood Pressure Pulse Oximetry Oxygen Delivery 04/17/24 12:02 04/17/24 12:15 04/17/24 12:30 Temperature Pulse Rate 82 81 Respiratory Rate 22 H 22 H Blood Pressure 150/70 H Pulse Oximetry Oxygen Delivery 04/17/24 12:31 04/17/24 12:45 04/17/24 13:00 Temperature Pulse Rate 78 82 80 Respiratory Rate 20 23 H 21 H Blood Pressure 189/60 H Pulse Oximetry Oxygen Delivery 04/17/24 13:15 04/17/24 13:24 04/17/24 13:48 Temperature Pulse Rate 85 86 90 Respiratory Rate 17 20 21 H Blood Pressure 148/72 H 139/56 L Pulse Oximetry Oxygen Delivery 04/17/24 14:15 04/17/24 14:17 04/17/24 14:48 Temperature Pulse Rate 81 88 Respiratory Rate 19 20 Blood Pressure 160/72 H 145/50 H Pulse Oximetry Oxygen Delivery 04/17/24 16:07 Temperature Pulse Rate 85 Respiratory Rate 18 Blood Pressure 143/56 H Pulse Oximetry 94 Oxygen Delivery Results Labs 04/17/24 11:39 04/17/24 11:39 Labs: Abnormal lab results 04/17/24 04/17/24 Range/Units 11:39 12:03 WBC 15.0 H (4.5-10.0) K/mm3 RBC 4.08 L (4.6-6.20) M/mm3 Hgb 12.3 L (14.0-18.0) g/dL Hct 35.7 L (42.0-52.0) % Immature Gran % (Auto) 0.6 H (0-0.5) % Neut % (Auto) 89.1 H (45.5-73.1) % Lymph % (Auto) 5.1 L (18.3-44.2) % Lymph # (Auto) 0.77 L (0.9-3.2) K/mm3 [place] # (Auto) 0.7 H (0.1-0.6) K/mm3 Abs Immat Gran (auto) 0.09 H (0.00-0.031) K/mm3 Absolute Neuts (auto) 13.4 H (1.3-6.7) K/mm3 Chloride 109 H (98-107) mmol/L Creatinine 0.60 L (0.7-1.3) mg/dL Glucose 112 H (65-110) mg/dL Urine Appearance Cloudy H (Clear) H & H 04/17/24 Range/Units 11:39 Hgb 12.3 L (14.0-18.0) g/dL Hct 35.7 L (42.0-52.0) % Coagulation 04/17/24 Range/Units 11:39 INR 1.0 All other labs normal.
--- NOTE | 2024-04-17 18:16 | PC.NURSE ---
This patient, Satya Watson, was admitted to [facility] Surg Room 304-01 at 16:55. Patient oriented to hospital policies and general routines including ID bracelet, bed and alarms, visiting hours, pain management, procedures, bathroom and other care routines, personal items, smoking policy, room service/diet, and visiting hours. Information on how to activate the Rapid Response Team has been discussed. Patient/Family are encouraged to report perceived risks to care and to ask questions if they do not understand what they are told or what they should do.
[2024-04-17 21:07] LABS: Magnesium 1.9 mg/dL (1.6-2.3)
[2024-04-18] VITALS (13 sets, daily range): BP systolic 117–177; BP diastolic 42–85; PULSE 75–102; RESP 16–20; TEMP 36.4–37.3; O2SAT 90–96
[2024-04-18 07:18] LABS: Basophils Percent Auto 0.3 % (0.2-1.2); Eosinophils Absolute Auto 0.1 K/mm3 (0-0.3); Eosinophils Percent Auto 0.6 % (0-4.4); Hematocrit 32.8 % (42.0-52.0); Immature Granulocyte Absolute 0.07 K/mm3 (0.00-0.031); Immature Granulocyte Percent A 0.7 % (0-0.5); Lymphocytes Absolute Auto 1.16 K/mm3 (0.9-3.2); Mean Corpuscular HGB Conc 33.5 g/dl (32-36); Mean Corpuscular Hemoglobin 30.1 pg (26-34); Mean Corpuscular Volume 89.6 fl (80-100); Mean Platelet Volume 10.6 fl (7.4-10.4); Monocytes Percent Auto 9.5 % (2.6-8.5); Neutrophils Absolute Auto 8.3 K/mm3 (1.3-6.7); Neutrophils Percent Auto 77.9 % (45.5-73.1); Platelet Count Result 166 k/mm3 (150-375); Red Blood Count 3.66 M/mm3 (4.6-6.20); Red Cell Distribution Width 13.6 % (11.5-14.5); White Blood Count 10.6 K/mm3 (4.5-10.0)
[2024-04-18 07:36] LABS: Alanine Aminotransferase 30 U/L (6-50); Albumin Level 3.5 g/dL (3.5-5.1); Alkaline Phosphatase 70 U/L (38-126); Anion Gap 4 mmol/L (4-12); Aspartate Amino Transferase 32 U/L (17-59); Blood Urea Nitrogen 12 mg/dL (9-20); Calcium 9.2 mg/dL (8.4-10.2); Carbon Dioxide 27 mmol/L (22-30); Chloride 106 mmol/L (98-107); Estimated CRCL calculation 74 ml/min; Estimated Glomerular Filt Rate > 60; Glucose 134 mg/dL (65-110); Potassium 3.9 mmol/L (3.4-5.0); Sodium 137 mmol/L (137-145)
--- NOTE | 2024-04-18 07:59 | PM.PNORT ---
Progress Note: A&P Assessment and Plan (1) Intertrochanteric fracture of left femur: Qualifiers: Encounter type: initial encounter Fracture type: closed Fracture alignment: displaced Qualified Code(s): S72.142A - Displaced intertrochanteric fracture of left femur, initial encounter for closed fracture Code(s): S72.142A - Displaced intertrochanteric fracture of left femur, initial encounter for closed fracture Status: Acute Assessment and Plan: I spoke with patient's at length this morning. I explained the options which include nonsurgical treatment and surgical treatment and we discussed the advantages and disadvantages of both approaches. He lives at the [facility] [place]. He does walk with a walker but he is gradually spending more and more time in the wheelchair. She states that his appetite is excellent and he eats very well. I did explain risks of surgery to her in detail as well as the risk of mortality with nonsurgical and surgical treatment which is significant particularly at 6 months and 1 year in this age group. His is his power of deputy county attorney. She has decided to proceed with surgical stabilization of the fracture so that he can hopefully have reduction of pain and improved mobility and less suffering overall. I think this is the best approach as he is not terminally ill and his life expectancy may go on for many months even perhaps years and leaving the fracture on repair would make nursing care very difficult and increase his suffering substantially. I have asked the hearing instrument specialist if they would see him this morning as he does have sick sinus syndrome pacemaker and chest x-ray showing cardiomegaly. I will order a chest x-ray to be done this morning to make sure that there are no new signs for pneumonia. His laboratory studies this morning show improved white count 10.6. Hemoglobin 11. Electrolyte panel is normal except for glucose of 134. We will proceed this afternoon if he is felt to be optimized. 30 minutes were spent in total care of this patient today. Subjective Subjective Date/Time Seen: 04/18/24 07:59 Objective Data Vital Signs Vital Signs: Vital Signs - 24 hr 04/17/24 08:15 04/17/24 08:25 04/17/24 08:30 Temperature 36.1 C L Pulse Rate 73 69 76 Respiratory Rate 16 13 18 Blood Pressure 156/55 H Pulse Oximetry 95 96 95 Oxygen Delivery Room Air 04/17/24 08:31 04/17/24 08:45 04/17/24 09:12 Temperature Pulse Rate 77 76 68 Respiratory Rate 14 18 17 Blood Pressure 168/60 H Pulse Oximetry 94 93 92 Oxygen Delivery 04/17/24 09:15 04/17/24 09:30 04/17/24 09:45 Temperature Pulse Rate 69 69 67 Respiratory Rate 17 20 14 Blood Pressure Pulse Oximetry 92 95 Oxygen Delivery 04/17/24 10:12 04/17/24 10:15 04/17/24 10:17 Temperature Pulse Rate 76 86 78 Respiratory Rate 20 17 17 Blood Pressure 148/52 H Pulse Oximetry 95 Oxygen Delivery 04/17/24 10:41 04/17/24 10:58 04/17/24 11:02 Temperature Pulse Rate 77 84 Respiratory Rate 19 20 Blood Pressure 174/79 H Pulse Oximetry 97 96 Oxygen Delivery 04/17/24 11:28 04/17/24 11:30 04/17/24 11:32 Temperature Pulse Rate 79 79 81 Respiratory Rate 16 20 22 H Blood Pressure 135/88 Pulse Oximetry 97 Oxygen Delivery 04/17/24 11:33 04/17/24 11:45 04/17/24 12:00 Temperature Pulse Rate 81 82 83 Respiratory Rate 22 H 22 H 19 Blood Pressure Pulse Oximetry Oxygen Delivery 04/17/24 12:02 04/17/24 12:15 04/17/24 12:30 Temperature Pulse Rate 82 81 Respiratory Rate 22 H 22 H Blood Pressure 150/70 H Pulse Oximetry Oxygen Delivery 04/17/24 12:31 04/17/24 12:45 04/17/24 13:00 Temperature Pulse Rate 78 82 80 Respiratory Rate 20 23 H 21 H Blood Pressure 189/60 H Pulse Oximetry Oxygen Delivery 04/17/24 13:15 04/17/24 13:24 04/17/24 13:48 Temperature Pulse Rate 85 86 90 Respiratory Rate 17 20 21 H Blood Pressure 148/72 H 139/56 L Pulse Oximetry Oxygen Delivery 04/17/24 14:15 04/17/24 14:17 04/17/24 14:48 Temperature Pulse Rate 81 88 Respiratory Rate 19 20 Blood Pressure 160/72 H 145/50 H Pulse Oximetry Oxygen Delivery 04/17/24 16:07 04/17/24 17:19 04/17/24 20:44 Temperature 36.7 C Pulse Rate 85 73 Respiratory Rate 18 13 Blood Pressure 143/56 H 132/50 L Pulse Oximetry 94 94 Oxygen Delivery Room Air 04/18/24 05:15 Temperature 36.9 C Pulse Rate 75 Respiratory Rate 17 Blood Pressure 136/42 L Pulse Oximetry 91 Oxygen Delivery Intake/Output Intake/Output: Intake & Output 04/15/24 04/16/24 04/17/24 04/18/24 23:59 23:59 23:59 23:59 Intake Total 1300 0 Balance 1300 0 Meds/Results Medications: Active Medications Generic Name Dose Route Start Last Admin Trade Name Freq PRN Reason Stop Dose Admin Acetaminophen 650 mg 04/17/24 15:21 Acetaminophen 325 Mg Tablet PO Q4H PRN Mild Pain (1-3) or Fever Hydrocodone Bitart/Acetaminophen 1 tab 04/17/24 15:21 Hydrocodone/Acetaminophen (*Crx) 5-325 Mg Tablet PO Q4H PRN Moderate Pain (4-6) Amlodipine Besylate 5 mg 04/18/24 09:00 Amlodipine Besylate 5 Mg Tablet PO DAILY [facility] Aspirin 325 mg 04/18/24 09:00 Aspirin 325 Mg Tablet PO DAILY [facility] Atorvastatin Calcium 20 mg 04/18/24 09:00 Atorvastatin 20 Mg Tablet PO DAILY [facility] Dextrose 12.5 gm 04/17/24 15:24 Dextrose 50% 25 Gm/50 Ml Syringe IV PUSH PRN PRN Hypoglycemia Protocol Glucagon 1 mg 04/17/24 15:24 Glucagon For Inj 1 Mg Vial IM PRN PRN Hypoglycemia Protocol Glucose 15 gm 04/17/24 15:24 Glucose Oral Gel 15 Gm Of Glucse In 37.5 Gm Tube PO PRN PRN Hypoglycemia Protocol Ceftriaxone Sodium 1 gm in 50 mls @ 100 mls/hr 04/18/24 09:00 Rocephin 1 Gm/Ns 50 Ml IVPB Q24H [facility] Azithromycin 500 mg in 250 mls @ 250 mls/hr 04/18/24 09:00 Zithromax IVPB Q24H [facility] Dextrose 1,000 mls @ 100 mls/hr 04/17/24 15:24 Dextrose 5% 1,000 Ml IVPB PRN PRN Hypoglycemia Protocol Dextrose/Sodium Chloride 1,000 mls @ 75 mls/hr 04/17/24 15:25 04/17/24 17:19 Dextrose 5% Sodium Chloride 0.45% IV CONT 75 mls/hr .[id number] ERNESTINE Administration Tranexamic Acid/Sodium Chloride 1,000 mg in 100 mls @ 200 mls/hr 04/18/24 07:51 Tranexamic Acid 1,000mg/[id number] IVPB 04/18/24 08:20 ONCE ONE Cefazolin Sodium 2 gm in 50 mls @ 100 mls/hr 04/18/24 07:51 Ancef 2 Gm/D5w 50 Ml IVPB 04/18/24 08:20 ONCE ONE Vancomycin HCl 1,250 mg in 250 mls @ 166.667 mls/hr 04/18/24 11:30 Vancomycin 1,250 Mg/Ns 250 Ml IVPB 04/18/24 12:59 ONCE ONE Lisinopril 40 mg 04/18/24 09:00 Lisinopril 20 Mg Tablet PO DAILY [facility] Memantine 10 mg 04/18/24 18:00 Memantine 10 Mg Tablet PO QPM [facility] Morphine Sulfate 2 mg 04/17/24 15:21 04/17/24 17:09 Morphine Sulfate (*Crx) 2 Mg/Ml Inj IV PUSH 2 mg Q4H PRN Administration Pain Rated 7-10 Multivitamins Therapeutic 1 tablet 04/18/24 09:00 Multivitamins Therapeutic Tab (*Bkc) PO DAILY [facility] Ondansetron HCl 4 mg 04/17/24 15:21 04/17/24 17:09 Ondansetron Inj 4 Mg/2 Ml Vial IV PUSH 4 mg Q6H PRN Administration Nausea And Vomiting Vitamin D 2,000 units 04/18/24 09:00 Cholecalciferol 1,000 Units Tablet PO DAILY [facility] Radiology Results: ITS Impressions Head CT 04/17/24 09:29 IMPRESSION: 1. No fracture or acute intracranial process. 2. 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 3. Age-related changes including moderate to severe diffuse volume loss and extensive white matter hypoattenuation consistent with chronic small vessel ischemic disease. Chest X-Ray 04/17/24 09:42 IMPRESSION: 1. Mild opacities with bronchial wall thickening in the left lower lung zone which could represent asymmetric mild pulmonary edema or pneumonia. 2. Cardiomegaly. Cervical Spine CT 04/17/24 09:44 IMPRESSION: 1. Moderate to severe cervical and upper thoracic spondylosis. No acute osseous abnormality. Hip/Pelvis X-Ray 04/17/24 09:55 IMPRESSION: 1. Mildly displaced and angulated comminuted intertrochanteric fracture of the proximal left femur. Labs Labs: Laboratory Results - last 24 hr 04/17/24 04/17/24 04/17/24 11:39 11:39 12:03 WBC 15.0 H RBC 4.08 L Hgb 12.3 L Hct 35.7 L MCV 87.5 MCH 30.1 MCHC 34.5 RDW 13.3 Plt Count 177 MPV 10.3 Immature Gran % (Auto) 0.6 H Neut % (Auto) 89.1 H Lymph % (Auto) 5.1 L [place] % (Auto) 4.9 Eos % (Auto) 0.1 Baso % (Auto) 0.2 Lymph # (Auto) 0.77 L [place] # (Auto) 0.7 H Eos # (Auto) 0.0 Baso # (Auto) 0.0 Abs Immat Gran (auto) 0.09 H Absolute Neuts (auto) 13.4 H Absolute Nucleated RBC 0.000 Nucleated RBC % 0.0 PT 13.8 INR 1.0 APTT 29.1 Sodium 139 Potassium 3.7 Chloride 109 H Carbon Dioxide 26 Anion Gap 4 BUN 11 Creatinine 0.60 L Estim Creat Clear Calc Not Reportable Estimated GFR > 60 Glucose 112 H Calcium 9.3 Magnesium Total Bilirubin 0.8 AST 31 ALT 35 Alkaline Phosphatase 106 Total Protein 7.0 Albumin 3.9 Procalcitonin < 0.0 TSH 2.390 Cancelled Urine Color Yellow Urine Appearance Cloudy H Urine pH 7.5 Ur Specific [place] 1.016 Urine Protein Negative Urine Glucose (UA) Negative Urine Ketones Negative Ur Blood (Man) Negative Urine Nitrate Negative Urine Bilirubin Negative Urine Urobilinogen 1.0 Leukocyte Esterase Rfl Negative Urine RBC 0-2 Urine WBC 0-5 Ur Squamous Epith Cells None seen Urine Bacteria None seen Urine Casts 0-2 Nasal MRSA (PCR) 04/17/24 04/17/24 04/18/24 15:41 20:39 06:50 WBC 10.6 H RBC 3.66 L Hgb 11.0 L Hct 32.8 L MCV 89.6 MCH 30.1 MCHC 33.5 RDW 13.6 Plt Count 166 MPV 10.6 H Immature Gran % (Auto) 0.7 H Neut % (Auto) 77.9 H Lymph % (Auto) 11.0 L [place] % (Auto) 9.5 H Eos % (Auto) 0.6 Baso % (Auto) 0.3 Lymph # (Auto) 1.16 [place] # (Auto) 1.0 H Eos # (Auto) 0.1 Baso # (Auto) 0.0 Abs Immat Gran (auto) 0.07 H Absolute Neuts (auto) 8.3 H Absolute Nucleated RBC 0.000 Nucleated RBC % 0.0 PT INR APTT Sodium 137 Potassium 3.9 Chloride 106 Carbon Dioxide 27 Anion Gap 4 BUN 12 Creatinine 0.70 Estim Creat Clear Calc 74 Estimated GFR > 60 Glucose 134 H Calcium 9.2 Magnesium 1.9 Total Bilirubin 1.0 AST 32 ALT 30 Alkaline Phosphatase 70 Total Protein 6.0 L Albumin 3.5 Procalcitonin TSH Urine Color Urine Appearance Urine pH Ur Specific [place] Urine Protein Urine Glucose (UA) Urine Ketones Ur Blood (Man) Urine Nitrate Urine Bilirubin Urine Urobilinogen Leukocyte Esterase Rfl Urine RBC Urine WBC Ur Squamous Epith Cells Urine Bacteria Urine Casts Nasal MRSA (PCR) Not detected
[2024-04-18] MEDS: ASPIRIN 325 MG TABLET PO (08:33)
[2024-04-18] MEDS: CHOLECALCIFEROL 1,000 UNITS TABLET 2000 UNITS PO (08:33)
[2024-04-18] MEDS: ATORVASTATIN 20 MG TABLET PO (08:33)
[2024-04-18] MEDS: MULTIVITAMINS THERAPEUTIC TAB (*BKC) 1 TABLET PO (08:33)
[2024-04-18] MEDS: lisinopriL 20 MG TABLET 40 MG PO (08:33)
[2024-04-18] MEDS: AZITHROMYCIN 500 MG/NS 250 ML 500 MG/250 ML BAG 250 MG IVPB (08:38)
[2024-04-18] MEDS: amLODIPine BESYLATE 5 MG TABLET PO (10:15)
[2024-04-18] MEDS: VANCOMYCIN 1,250 MG/NS 250 ML BAG 166.67 MG IVPB (12:00)
[2024-04-18] MEDS: TRANEXAMIC ACID 1,000MG/ISO100 1,000 MG/100 ML BAG 200 MG IVPB (12:16)
--- NOTE | 2024-04-18 12:47 | P.PNCA_ITS ---
Progress Note: A&P Time Spent With Patient Time: in error Subjective Date/time seen: 04/18/24 12:47 Interval history: error Review of Systems Review of Systems: ROS unobtainable: Yes unobtainable due to mental status Exam Narrative: General: In no acute distress, well nourished Head: atraumatic, no encephalopathy Eyes: PERRLA, sclera clear ENT: moist mucous membranes, nasal passages clear Neck: supple, no JVD, no adenopathy, trachea midline Cardiac: Normal S1 and S2. No murmur, gallops or friction rubs, peripheral pulses intact. Respiratory: Lungs clear to auscultation, no adventitious lung sounds, currently on room air Gastrointestinal: soft, non-distended, non-tender, normoactive bowel sounds. : voiding without difficulty. Extremities: moves all extremities Skin: clean, dry, intact. No wounds or lesions. Neuro: Alert and confused, cranial nerves intact, no neuro deficits. Psych: normal mood, normal affect, interactive Objective Data Vital Signs Vital Signs: Vital Signs - 24 hr 04/17/24 13:00 04/17/24 13:15 04/17/24 13:24 Temperature Pulse Rate 80 85 86 Respiratory Rate 21 H 17 20 Blood Pressure 148/72 H Pulse Oximetry Oxygen Delivery 04/17/24 13:48 04/17/24 14:15 04/17/24 14:17 Temperature Pulse Rate 90 81 88 Respiratory Rate 21 H 19 20 Blood Pressure 139/56 L 160/72 H Pulse Oximetry Oxygen Delivery 04/17/24 14:48 04/17/24 16:07 04/17/24 17:19 Temperature Pulse Rate 85 Respiratory Rate 18 Blood Pressure 145/50 H 143/56 H Pulse Oximetry 94 Oxygen Delivery Room Air 04/17/24 20:44 04/18/24 05:15 04/18/24 08:41 Temperature 36.7 C 36.9 C Pulse Rate 73 75 Respiratory Rate 13 17 Blood Pressure 132/50 L 136/42 L Pulse Oximetry 94 91 92 Oxygen Delivery Room Air Intake/Output Intake/Output: Intake & Output 04/15/24 04/16/24 04/17/24 04/18/24 23:59 23:59 23:59 23:59 Intake Total 1300 0 Balance 1300 0 Meds/Results Medications: Active Medications Generic Name Dose Route Start Last Admin Trade Name Freq PRN Reason Stop Dose Admin Acetaminophen 650 mg 04/17/24 15:21 Acetaminophen 325 Mg Tablet PO Q4H PRN Mild Pain (1-3) or Fever Hydrocodone Bitart/Acetaminophen 1 tab 04/17/24 15:21 Hydrocodone/Acetaminophen (*Crx) 5-325 Mg Tablet PO Q4H PRN Moderate Pain (4-6) Amlodipine Besylate 5 mg 04/18/24 09:00 04/18/24 10:15 Amlodipine Besylate 5 Mg Tablet PO 5 mg DAILY ERNESTINE Administration Aspirin 325 mg 04/18/24 09:00 04/18/24 08:33 Aspirin 325 Mg Tablet PO 325 mg DAILY ERNESTINE Administration Atorvastatin Calcium 20 mg 04/18/24 09:00 04/18/24 08:33 Atorvastatin 20 Mg Tablet PO 20 mg DAILY ERNESTINE Administration Dextrose 12.5 gm 04/17/24 15:24 Dextrose 50% 25 Gm/50 Ml Syringe IV PUSH PRN PRN Hypoglycemia Protocol Glucagon 1 mg 04/17/24 15:24 Glucagon For Inj 1 Mg Vial IM PRN PRN Hypoglycemia Protocol Glucose 15 gm 04/17/24 15:24 Glucose Oral Gel 15 Gm Of Glucse In 37.5 Gm Tube PO PRN PRN Hypoglycemia Protocol Ceftriaxone Sodium 1 gm in 50 mls @ 100 mls/hr 04/18/24 09:00 04/18/24 08:33 Rocephin 1 Gm/Ns 50 Ml IVPB 100 mls/hr Q24H ERNESTINE Administration Azithromycin 500 mg in 250 mls @ 250 mls/hr 04/18/24 09:00 04/18/24 08:38 Zithromax IVPB 250 mls/hr Q24H ERNESTINE Administration Dextrose 1,000 mls @ 100 mls/hr 04/17/24 15:24 Dextrose 5% 1,000 Ml IVPB PRN PRN Hypoglycemia Protocol Dextrose/Sodium Chloride 1,000 mls @ 75 mls/hr 04/17/24 15:25 04/17/24 17:19 Dextrose 5% Sodium Chloride 0.45% IV CONT 75 mls/hr .[id number] ERNESTINE Administration Vancomycin HCl 1,250 mg in 250 mls @ 166.667 mls/hr 04/18/24 11:30 04/18/24 12:00 Vancomycin 1,250 Mg/Ns 250 Ml IVPB 04/18/24 12:59 166.67 mls/hr ONCE ONE Administration Lisinopril 40 mg 04/18/24 09:00 04/18/24 08:33 Lisinopril 20 Mg Tablet PO 40 mg DAILY ERNESTINE Administration Memantine 10 mg 04/18/24 18:00 Memantine 10 Mg Tablet PO QPM ERNESTINE Morphine Sulfate 2 mg 04/17/24 15:21 04/17/24 17:09 Morphine Sulfate (*Crx) 2 Mg/Ml Inj IV PUSH 2 mg Q4H PRN Administration Pain Rated 7-10 Multivitamins Therapeutic 1 tablet 04/18/24 09:00 04/18/24 08:33 Multivitamins Therapeutic Tab (*Bkc) PO 1 tablet DAILY ERNESTINE Administration Ondansetron HCl 4 mg 04/17/24 15:21 04/17/24 17:09 Ondansetron Inj 4 Mg/2 Ml Vial IV PUSH 4 mg Q6H PRN Administration Nausea And Vomiting Vitamin D 2,000 units 04/18/24 09:00 04/18/24 08:33 Cholecalciferol 1,000 Units Tablet PO 2,000 units DAILY ERNESTINE Administration Radiology Results: ITS Impressions Head CT 04/17/24 09:29 IMPRESSION: 1. No fracture or acute intracranial process. 2. 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 3. Age-related changes including moderate to severe diffuse volume loss and extensive white matter hypoattenuation consistent with chronic small vessel ischemic disease. Cervical Spine CT 04/17/24 09:44 IMPRESSION: 1. Moderate to severe cervical and upper thoracic spondylosis. No acute osseous abnormality. Hip/Pelvis X-Ray 04/17/24 09:55 IMPRESSION: 1. Mildly displaced and angulated comminuted intertrochanteric fracture of the proximal left femur. Chest X-Ray 04/18/24 08:34 IMPRESSION: 1. Persistent mild patchy airspace opacities in the left lower lung zone which could represent atelectasis or pneumonia. Labs Labs: Laboratory Results - last 24 hr 04/17/24 04/17/24 04/17/24 11:39 11:39 15:41 WBC RBC Hgb Hct MCV MCH MCHC RDW Plt Count MPV Immature Gran % (Auto) Neut % (Auto) Lymph % (Auto) [place] % (Auto) Eos % (Auto) Baso % (Auto) Lymph # (Auto) [place] # (Auto) Eos # (Auto) Baso # (Auto) Abs Immat Gran (auto) Absolute Neuts (auto) Absolute Nucleated RBC Nucleated RBC % Sodium Potassium Chloride Carbon Dioxide Anion Gap BUN Creatinine Estim Creat Clear Calc Estimated GFR Glucose Calcium Magnesium Total Bilirubin AST ALT Alkaline Phosphatase Total Protein Albumin Procalcitonin < 0.0 TSH 2.390 Cancelled Nasal MRSA (PCR) Not detected Blood Type Antibody Screen 04/17/24 04/18/24 04/18/24 20:39 06:50 07:59 WBC 10.6 H RBC 3.66 L Hgb 11.0 L Hct 32.8 L MCV 89.6 MCH 30.1 MCHC 33.5 RDW 13.6 Plt Count 166 MPV 10.6 H Immature Gran % (Auto) 0.7 H Neut % (Auto) 77.9 H Lymph % (Auto) 11.0 L [place] % (Auto) 9.5 H Eos % (Auto) 0.6 Baso % (Auto) 0.3 Lymph # (Auto) 1.16 [place] # (Auto) 1.0 H Eos # (Auto) 0.1 Baso # (Auto) 0.0 Abs Immat Gran (auto) 0.07 H Absolute Neuts (auto) 8.3 H Absolute Nucleated RBC 0.000 Nucleated RBC % 0.0 Sodium 137 Potassium 3.9 Chloride 106 Carbon Dioxide 27 Anion Gap 4 BUN 12 Creatinine 0.70 Estim Creat Clear Calc 74 Estimated GFR > 60 Glucose 134 H Calcium 9.2 Magnesium 1.9 Total Bilirubin 1.0 AST 32 ALT 30 Alkaline Phosphatase 70 Total Protein 6.0 L Albumin 3.5 Procalcitonin TSH Nasal MRSA (PCR) Blood Type O Positive Antibody Screen Negative
--- NOTE | 2024-04-18 12:49 | P.CONCA_ITS ---
Assessment and Plan Assessment and plan (1) Intertrochanteric fracture of left femur: Qualifiers: Encounter type: initial encounter Fracture type: closed Fracture alignment: displaced Qualified Code(s): S72.142A - Displaced intertrochanteric fracture of left femur, initial encounter for closed fracture Code(s): S72.142A - Displaced intertrochanteric fracture of left femur, initial encounter for closed fracture Status: Acute Assessment and Plan: 1. L # NOF 2. SSS s/p pacemaker 3. Aflutter with variable block and controlled rate Rate controlled CHADSVASC 5 4. Pre-op evaluation - RCRI score 2 which translates into class 3 risk for perioperative cardiac events - The risk and benefit of delaying the surgery for fracture neck of femur is higher than the the cardiovascular risk associated with the procedure -ECG shows atrial flutter with variable block. ECG not suggestive of ischemia -he does not appear to be in decompensated heart failure -has a pacemaker in due to underlying sick sinus syndrome -suggest to proceed with surgery the further cardiac investigations -consider adding low-dose beta-michel post surgery -consider switching aspirin 325 to 81 mg -I will recommended he be discharged on an event monitor for 30 days to monitor his rhythm so as to ascertain that there was no cardiogenic reason for his fall -long-term anticoagulation is to be discussed with his family. His family is agreeable, the timing of anticoagulation to be discussed with the surgery team (2) Hypertension: Code(s): I10 - Essential (primary) hypertension Status: Chronic (3) Pre-op evaluation: Code(s): Z01.818 - Encounter for other preprocedural examination Status: Acute History of Present Illness History of Present Illness Consult date/time: 04/18/24 12:49 Reason For Visit: Left Hip Fracture Narrative: his is an 84-year-old male with a significant past medical history severe Alzheimer's dementia, Anxiety, sick sinus syndrome status post pacemaker, BPH, hypertension, hyperlipidemia, TIA, hard of hearing, vitamin-D deficiency who presented to the hospital for an angulated comminuted intratrochanteric fracture of the proximal left femur. Cardiology consulted for preop evaluation his fracture. It is difficult to obtain history from him because of underlying dementia. History noted from the previous chart. Unable to assess whether this was a mechanical fall or a syncopal event Review of Systems Review of Systems: ROS unobtainable: Yes unobtainable due to mental status [facility] Past Medical History Medical History Actinic keratosis Anxiety BPH (benign prostatic hyperplasia) Hyperlipidemia Hypertension Pacemaker Sick sinus syndrome TIA (transient ischemic attack) Vitamin D deficiency Surgical History Surgical History History of permanent cardiac pacemaker placement Family History Family History Other Unknown family medical history Social History Social History Smoking status: Never smoker Alcohol intake: never Substance use: never Spiritual care concerns: No Meds Home Medications and Allergies Home Medications Medication Instructions Recorded Confirmed Type acetaminophen 650 mg tablet 650 mg PO Q4H PRN Pain (Scale 04/17/24 04/17/24 His tory Score 1-3) amlodipine 5 mg tablet 5 mg PO DAILY 04/17/24 04/17/24 History aspirin 325 mg tablet 325 mg PO DAILY 04/17/24 04/17/24 History atorvastatin 20 mg tablet 20 mg PO DAILY 04/17/24 04/17/24 History cholecalciferol (vitamin D3) 50 50 mcg PO DAILY 04/17/24 04/17/24 History mcg (2,000 unit) capsule lisinopril 40 mg tablet 40 mg PO DAILY 04/17/24 04/17/24 History memantine 10 mg tablet 10 mg PO QPM 04/17/24 04/17/24 History multivitamin 1 tablet PO DAILY 04/17/24 04/17/24 History triamcinolone acetonide 0.1 % 1 applic topical BID PRN Rash 04/17/24 04/17/24 History topical cream Allergies Allergy/AdvReac Type Severity Reaction Status Date / Time Sulfa (Sulfonamide Allergy Unknown Unknown Verified 04/18/24 12:14 Antibiotics) Vital Signs Vital Signs - 24 hr 04/17/24 13:00 04/17/24 13:15 04/17/24 13:24 Temperature Pulse Rate 80 85 86 Respiratory Rate 21 H 17 20 Blood Pressure 148/72 H Pulse Oximetry Oxygen Delivery 04/17/24 13:48 04/17/24 14:15 04/17/24 14:17 Temperature Pulse Rate 90 81 88 Respiratory Rate 21 H 19 20 Blood Pressure 139/56 L 160/72 H Pulse Oximetry Oxygen Delivery 04/17/24 14:48 04/17/24 16:07 04/17/24 17:19 Temperature Pulse Rate 85 Respiratory Rate 18 Blood Pressure 145/50 H 143/56 H Pulse Oximetry 94 Oxygen Delivery Room Air 04/17/24 20:44 04/18/24 05:15 04/18/24 08:41 Temperature 36.7 C 36.9 C Pulse Rate 73 75 Respiratory Rate 13 17 Blood Pressure 132/50 L 136/42 L Pulse Oximetry 94 91 92 Oxygen Delivery Room Air Exam Narrative: General: In no acute distress, well nourished Head: atraumatic, no encephalopathy Eyes: PERRLA, sclera clear ENT: moist mucous membranes, nasal passages clear Neck: supple, no JVD, no adenopathy, trachea midline Cardiac: Normal S1 and S2. No murmur, gallops or friction rubs, peripheral pulses intact. Respiratory: Lungs clear to auscultation, no adventitious lung sounds, currently on room air Gastrointestinal: soft, non-distended, non-tender, normoactive bowel sounds. : voiding without difficulty. Extremities: moves all extremities Skin: clean, dry, intact. No wounds or lesions. Neuro: Alert and confused, cranial nerves intact, no neuro deficits. Psych: normal mood, normal affect, interactive Results Labs and Meds 04/18/24 06:50 04/18/24 06:50 Lab results: Cardiac Enzymes 04/18/24 Range/Units 06:50 AST 32 (17-59) U/L CBC 04/18/24 Range/Units 06:50 WBC 10.6 H (4.5-10.0) K/mm3 RBC 3.66 L (4.6-6.20) M/mm3 Hgb 11.0 L (14.0-18.0) g/dL Hct 32.8 L (42.0-52.0) % Plt Count 166 (150-375) k/mm3 Lymph # (Auto) 1.16 (0.9-3.2) K/mm3 [place] # (Auto) 1.0 H (0.1-0.6) K/mm3 Eos # (Auto) 0.1 (0-0.3) K/mm3 Baso # (Auto) 0.0 (0.0-0.1) K/mm3 Comprehensive Metabolic Panel 04/18/24 Range/Units 06:50 Sodium 137 (137-145) mmol/L Potassium 3.9 (3.4-5.0) mmol/L Chloride 106 (98-107) mmol/L Carbon Dioxide 27 (22-30) mmol/L BUN 12 (9-20) mg/dL Creatinine 0.70 (0.7-1.3) mg/dL Glucose 134 H (65-110) mg/dL Calcium 9.2 (8.4-10.2) mg/dL AST 32 (17-59) U/L ALT 30 (6-50) U/L Alkaline Phosphatase 70 (38-126) U/L Total Protein 6.0 L (6.3-8.2) g/dL Albumin 3.5 (3.5-5.1) g/dL Intake and Output 04/17/24 04/18/24 04/18/24 23:59 07:59 15:59 Intake Total 0 Balance 0 Intake: Oral 0 Other: # Unmeasured Voids 2 # Incontinent Voids 2 # Urine Diapers 2
--- NOTE | 2024-04-18 13:02 | WPDHPUPDATE1 ---
History and Physical Update Update Date/Time: 04/18/24 13:02 History and Physical has been reviewed, including an updated exam of the patient. There are NO changes in the patient's condition. Risks, benefits, and alternatives have been discussed and questions answered. Patient agrees to proceed with procedure - IT Nail left hip.
--- NOTE | 2024-04-18 13:12 | P.PNAN_ITS ---
Anes - Initial Pre Proc Eval Procedure: Operation Date: 04/18/24 13:00 Proposed Procedures p Left Intertrochanteric Nail - Jaciel Pena MD Date/Time: 04/18/24 13:12 Surgeon: Aggie Ornelas MD Pre Op Diagnosis: Left Hip Fracture Patient Data Age: 84 Gender: M Height: 1.83 m Weight: 88.1 kg Last Vital Signs Temp 98.4 F 04/18/24 05:15 Pulse 75 04/18/24 05:15 Resp 17 04/18/24 05:15 BP 136/42 L 04/18/24 05:15 Pulse Ox 92 04/18/24 08:41 O2 Del Method Room Air 04/18/24 08:41 Allergies Allergy/AdvReac Type Severity Reaction Status Date / Time Sulfa (Sulfonamide Allergy Unknown Unknown Verified 04/18/24 12:14 Antibiotics) Home Medications Medication Instructions Recorded Confirmed Type acetaminophen 650 mg tablet 650 mg PO Q4H PRN Pain (Scale 04/17/24 04/17/24 History Score 1-3) amlodipine 5 mg tablet 5 mg PO DAILY 04/17/24 04/17/24 History aspirin 325 mg tablet 325 mg PO DAILY 04/17/24 04/17/24 History atorvastatin 20 mg tablet 20 mg PO DAILY 04/17/24 04/17/24 History cholecalciferol (vitamin D3) 50 50 mcg PO DAILY 04/17/24 04/17/24 History mcg (2,000 unit) capsule lisinopril 40 mg tablet 40 mg PO DAILY 04/17/24 04/17/24 History memantine 10 mg tablet 10 mg PO QPM 04/17/24 04/17/24 History multivitamin 1 tablet PO DAILY 04/17/24 04/17/24 History triamcinolone acetonide 0.1 % 1 applic topical BID PRN Rash 04/17/24 04/17/24 History topical cream Laboratory Tests 04/17/24 04/17/24 04/17/24 11:39 11:39 15:41 WBC RBC Hgb Hct MCV MCH MCHC RDW Plt Count MPV Immature Gran % (Auto) Neut % (Auto) Lymph % (Auto) [place] % (Auto) Eos % (Auto) Baso % (Auto) Lymph # (Auto) [place] # (Auto) Eos # (Auto) Baso # (Auto) Abs Immat Gran (auto) Absolute Neuts (auto) Absolute Nucleated RBC Nucleated RBC % Sodium Potassium Chloride Carbon Dioxide Anion Gap BUN Creatinine Estim Creat Clear Calc Estimated GFR Glucose Calcium Magnesium Total Bilirubin AST ALT Alkaline Phosphatase Total Protein Albumin Procalcitonin < 0.0 ng/mL TSH 2.390 uIU/mL Cancelled (0.465-4.680) Nasal MRSA (PCR) Not detected (NOT DETECTE) Blood Type Antibody Screen 04/17/24 04/18/24 04/18/24 20:39 06:50 07:59 WBC 10.6 H K/mm3 (4.5-10.0) RBC 3.66 L M/mm3 (4.6-6.20) Hgb 11.0 L g/dL (14.0-18.0) Hct 32.8 L % (42.0-52.0) MCV 89.6 fl (80-100) MCH 30.1 pg (26-34) MCHC 33.5 g/dl (32-36) RDW 13.6 % (11.5-14.5) Plt Count 166 k/mm3 (150-375) MPV 10.6 H fl (7.4-10.4) Immature Gran % (Auto) 0.7 H % (0-0.5) Neut % (Auto) 77.9 H % (45.5-73.1) Lymph % (Auto) 11.0 L % (18.3-44.2) [facility] % (Auto) 9.5 H % (2.6-8.5) Eos % (Auto) 0.6 % (0-4.4) Baso % (Auto) 0.3 % (0.2-1.2) Lymph # (Auto) 1.16 K/mm3 (0.9-3.2) [facility] # (Auto) 1.0 H K/mm3 (0.1-0.6) Eos # (Auto) 0.1 K/mm3 (0-0.3) Baso # (Auto) 0.0 K/mm3 (0.0-0.1) Abs Immat Gran (auto) 0.07 H K/mm3 (0.00-0.031) Absolute Neuts (auto) 8.3 H K/mm3 (1.3-6.7) Absolute Nucleated RBC 0.000 K/mm3 (0.0-0.012) Nucleated RBC % 0.0 % (0.0-0.2) Sodium 137 mmol/L (137-145) Potassium 3.9 mmol/L (3.4-5.0) Chloride 106 mmol/L (98-107) Carbon Dioxide 27 mmol/L (22-30) Anion Gap 4 mmol/L (4-12) BUN 12 mg/dL (9-20) Creatinine 0.70 mg/dL (0.7-1.3) Estim Creat Clear Calc 74 ml/min Estimated GFR > 60 (59 - ) Glucose 134 H mg/dL (65-110) Calcium 9.2 mg/dL (8.4-10.2) Magnesium 1.9 mg/dL (1.6-2.3) Total Bilirubin 1.0 mg/dL (0.2-1.3) AST 32 U/L (17-59) ALT 30 U/L (6-50) Alkaline Phosphatase 70 U/L (38-126) Total Protein 6.0 L g/dL (6.3-8.2) Albumin 3.5 g/dL (3.5-5.1) Procalcitonin TSH Nasal MRSA (PCR) Blood Type O Positive Antibody Screen Negative Patient hx anesthesia problems: none Family hx anesthesia problems: none Results Review: All pre-operative results and documents have been reviewed as part of the pre- operative evaluation. [facility] Past Medical History Medical History Actinic keratosis Anxiety BPH (benign prostatic hyperplasia) Hyperlipidemia Hypertension Pacemaker Sick sinus syndrome TIA (transient ischemic attack) Vitamin D deficiency Surgical History Surgical History History of permanent cardiac pacemaker placement Family History Family History Other Unknown family medical history Social History Social History Smoking status: Never smoker Alcohol intake: never Substance use: never Spiritual care concerns: No Anes - Eval Final PreProcedure Day of Procedure 04/18/24 13:12 Patient weight: normal Heart: regular rate and rhythm Lungs: clear to auscultation Neurological: alert and oriented Last oral intake: >/= 8 hours ASA classification: III Emergent: no Anesthetic plan: proceed Anesthesia type and monitoring: general LMA and standard monitoring Results Review: All pre-operative results and documents have been reviewed as part of the pre- operative evaluation. Informed Consent: The patient's anesthetic plan and its attendant risks and benefits were discussed with the patient/family/POA. Questions were solicited and answers provided to the satisfaction of the patient/family/POA.
[2024-04-18] MEDS: ceFAZolin 2 GM/D5W 50 ML 2 GM/50 ML BAG IVPB ×2 (13:19→20:47)
[2024-04-18] MEDS: ceFAZolin SODIUM 1 GM VIAL (13:58)
--- NOTE | 2024-04-18 14:39 | P.PNIM_ITS ---
Progress Note: A&P Assessment and Plan (1) Fall: Code(s): W19.XXXA - Unspecified fall, initial encounter Status: Acute Assessment and Plan: patient sustained a ground level fall on to his left hip today * head CT was negative for any acute fracture or intracranial process, showed old lacunar infarct in the right basal ganglia, age-related changes including moderate to severe diffuse volume loss and extensive white matter hypoattenuation consistent with chronic small-vessel ischemic disease. * Cervical spine x-ray showed moderate to severe cervical and upper thoracic spondylosis, no acute osseous abnormality * hip and pelvis x-ray shown mildly displaced and angulated comminuted intratrochanteric fracture of the proximal left femur * continue fall precautions (2) Hip fracture: Code(s): S72.009A - Fracture of unspecified part of neck of unspecified femur, initial encounter for closed fracture Status: Acute Assessment and Plan: * hip and pelvis x-ray shown mildly displaced and angulated comminuted intratrochanteric fracture of the proximal left femur * continue pain control * continue hip precautions * bed rest for now * Orthopedic surgery consulted and plans for surgery today * medically stable from our perspective other than his sick sinus syndrome fariha campoverde does have a pacemaker in place * NPO For surgery today * continue IV fluid * Case coordination consulted for outpatient rehab needs * continue pain and nausea control (3) Pneumonia: Code(s): J18.9 - Pneumonia, unspecified organism Status: Acute Assessment and Plan: * chest x-ray showing mild opacities with bronchial wall thickening in the left lower lung zone representing pneumonia, cardiomegaly * patient was started on azithromycin and Rocephin * blood cultures were obtained and are pending * white blood cell count 10.6 * procalcitonin 0.0 * MRSA negative (4) Dementia: Code(s): F03.90 - Unspecified dementia, unspecified severity, without behavioral disturbance, psychotic disturbance, mood disturbance, and anxiety Status: Chronic Assessment and Plan: * continue Namenda (5) Hyperlipidemia: Code(s): E78.5 - Hyperlipidemia, unspecified Status: Chronic Assessment and Plan: * continue aspirin and atorvastatin (6) Hypertension: Code(s): I10 - Essential (primary) hypertension Status: Chronic Assessment and Plan: * blood pressure ranging 139/56 to 189/60 * continue amlodipine and lisinopril Time Spent With Patient Time with patient: 25 - 35 minutes Subjective Date/time seen: 04/18/24 14:39 Interval history: Interval history: This is an 84-year-old male with a significant past medical history severe Alzheimer's dementia, Anxiety, sick sinus syndrome status post pacemaker, BPH, hypertension, hyperlipidemia, TIA, hard of hearing, vitamin-D deficiency who presented to the hospital for evaluation after a ground level fall landing on his left hip. Patient is not a good historian and most of presenting illness was obtained from the medical record. Patient was found down on the ground after sustaining a fall. The fall was unwitnessed. He immediately started having pain in his left hip and was brought to the hospital for further investigation. 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 Chest x-ray showed mild opacities with bronchial wall thickening in the left lower lung zone, cardiomegaly. Cervical spine CT showed moderate to severe cervical and upper thoracic spondylosis, no acute osseous abnormality. Hip and pelvis x-ray showed mildly displaced and angulated comminuted intratrochanteric fracture of the proximal left femur. Initial labs showed a white blood cell count of 15.0, hemoglobin 12.3, INR 1.0, chloride 109, creatinine 0.60. A UA was obtained which showed a cloudy in appearance however was unremarkable. Blood cultures were obtained and are pending. EKG shown a flutter with variable block, rate of 89, QTC 426. Patient was given 1 L of normal saline, dilaudid, Rocephin and azithromycin while in the ED. orthopedic surgery was consulted. subjective: patient denies any new complaints today. His signs are stable he is afebrile, he is on room air. He is stable from our standpoint for ortho surgery today. He has pacemaker due to sick sinus syndrome. Review of Systems Review of Systems: ROS unobtainable: Yes unobtainable due to mental status Exam Narrative: General: In no acute distress, well nourished Cardiac: Normal S1 and S2. No murmur, gallops or friction rubs, peripheral pulses intact. Respiratory: Lungs clear to auscultation, no adventitious lung sounds, currently on room air Gastrointestinal: soft, non-distended, non-tender, normoactive bowel sounds. : voiding without difficulty. Extremities: moves all extremities Skin: clean, dry, intact. No wounds or lesions. Neuro: Alert and confused Objective Data Vital Signs Vital Signs: Vital Signs - 24 hr 04/17/24 14:48 04/17/24 16:07 04/17/24 17:19 Temperature Pulse Rate 85 Respiratory Rate 18 Blood Pressure 145/50 H 143/56 H Pulse Oximetry 94 Oxygen Delivery Room Air 04/17/24 20:44 04/18/24 05:15 04/18/24 08:41 Temperature 98.1 F 98.4 F Pulse Rate 73 75 Respiratory Rate 13 17 Blood Pressure 132/50 L 136/42 L Pulse Oximetry 94 91 92 Oxygen Delivery Room Air 04/18/24 08:00 Temperature Pulse Rate Respiratory Rate Blood Pressure Pulse Oximetry Oxygen Delivery Room Air Intake/Output Intake/Output: Intake & Output 04/15/24 04/16/24 04/17/24 04/18/24 23:59 23:59 23:59 23:59 Intake Total 1300 50 Balance 1300 50 Meds/Results Medications: Active Medications Generic Name Dose Route Start Last Admin Trade Name Freq PRN Reason Stop Dose Admin Acetaminophen 650 mg 04/17/24 15:21 Acetaminophen 325 Mg Tablet PO Q4H PRN Mild Pain (1-3) or Fever Hydrocodone Bitart/Acetaminophen 1 tab 04/17/24 15:21 Hydrocodone/Acetaminophen (*Crx) 5-325 Mg Tablet PO Q4H PRN Moderate Pain (4-6) Amlodipine Besylate 5 mg 04/18/24 09:00 04/18/24 10:15 Amlodipine Besylate 5 Mg Tablet PO 5 mg DAILY ERNESTINE Administration Aspirin 81 mg 04/19/24 08:00 Aspirin 81 Mg Chewable Tablet PO DAILY@0800 ERNESTINE Atorvastatin Calcium 20 mg 04/18/24 09:00 04/18/24 08:33 Atorvastatin 20 Mg Tablet PO 20 mg DAILY ERNESTINE Administration Azithromycin 500 mg 04/19/24 09:00 Azithromycin 250 Mg Tablet PO 04/21/24 09:01 DAILY ERNESTINE Dextrose 12.5 gm 04/17/24 15:24 Dextrose 50% 25 Gm/50 Ml Syringe IV PUSH PRN PRN Hypoglycemia Protocol Glucagon 1 mg 04/17/24 15:24 Glucagon For Inj 1 Mg Vial IM PRN PRN Hypoglycemia Protocol Glucose 15 gm 04/17/24 15:24 Glucose Oral Gel 15 Gm Of Glucse In 37.5 Gm Tube PO PRN PRN Hypoglycemia Protocol Ceftriaxone Sodium 1 gm in 50 mls @ 100 mls/hr 04/18/24 09:00 04/18/24 08:33 Rocephin 1 Gm/Ns 50 Ml IVPB 100 mls/hr Q24H ERNESTINE Administration Dextrose 1,000 mls @ 100 mls/hr 04/17/24 15:24 Dextrose 5% 1,000 Ml IVPB PRN PRN Hypoglycemia Protocol Dextrose/Sodium Chloride 1,000 mls @ 75 mls/hr 04/17/24 15:25 04/17/24 17:19 Dextrose 5% Sodium Chloride 0.45% IV CONT 75 mls/hr .[id number] ERNESTINE Administration Lisinopril 40 mg 04/18/24 09:00 04/18/24 08:33 Lisinopril 20 Mg Tablet PO 40 mg DAILY ERNESTINE Administration Memantine 10 mg 04/18/24 18:00 Memantine 10 Mg Tablet PO QPM ERNESTINE Metoprolol Tartrate 25 mg 04/18/24 21:00 Metoprolol Tartrate 25 Mg Tablet PO Q12HR ERNESTINE Morphine Sulfate 2 mg 04/17/24 15:21 04/17/24 17:09 Morphine Sulfate (*Crx) 2 Mg/Ml Inj IV PUSH 2 mg Q4H PRN Administration Pain Rated 7-10 Multivitamins Therapeutic 1 tablet 04/18/24 09:00 04/18/24 08:33 Multivitamins Therapeutic Tab (*Bkc) PO 1 tablet DAILY ERNESTINE Administration Ondansetron HCl 4 mg 04/17/24 15:21 04/17/24 17:09 Ondansetron Inj 4 Mg/2 Ml Vial IV PUSH 4 mg Q6H PRN Administration Nausea And Vomiting Vitamin D 2,000 units 04/18/24 09:00 04/18/24 08:33 Cholecalciferol 1,000 Units Tablet PO 2,000 units DAILY ERNESTINE Administration Radiology Results: ITS Impressions Head CT 04/17/24 09:29 IMPRESSION: 1. No fracture or acute intracranial process. 2. 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 3. Age-related changes including moderate to severe diffuse volume loss and extensive white matter hypoattenuation consistent with chronic small vessel ischemic disease. Cervical Spine CT 04/17/24 09:44 IMPRESSION: 1. Moderate to severe cervical and upper thoracic spondylosis. No acute osseous abnormality. Hip/Pelvis X-Ray 04/17/24 09:55 IMPRESSION: 1. Mildly displaced and angulated comminuted intertrochanteric fracture of the proximal left femur. Chest X-Ray 04/18/24 08:34 IMPRESSION: 1. Persistent mild patchy airspace opacities in the left lower lung zone which could represent atelectasis or pneumonia. Labs Labs: Laboratory Results - last 24 hr 04/17/24 04/17/24 04/17/24 11:39 11:39 15:41 WBC RBC Hgb Hct MCV MCH MCHC RDW Plt Count MPV Immature Gran % (Auto) Neut % (Auto) Lymph % (Auto) Frio % (Auto) Eos % (Auto) Baso % (Auto) Lymph # (Auto) Frio # (Auto) Eos # (Auto) Baso # (Auto) Abs Immat Gran (auto) Absolute Neuts (auto) Absolute Nucleated RBC Nucleated RBC % Sodium Potassium Chloride Carbon Dioxide Anion Gap BUN Creatinine Estim Creat Clear Calc Estimated GFR Glucose Calcium Magnesium Total Bilirubin AST ALT Alkaline Phosphatase Total Protein Albumin Procalcitonin < 0.0 TSH 2.390 Cancelled Nasal MRSA (PCR) Not detected Blood Type Antibody Screen 04/17/24 04/18/24 04/18/24 20:39 06:50 07:59 WBC 10.6 H RBC 3.66 L Hgb 11.0 L Hct 32.8 L MCV 89.6 MCH 30.1 MCHC 33.5 RDW 13.6 Plt Count 166 MPV 10.6 H Immature Gran % (Auto) 0.7 H Neut % (Auto) 77.9 H Lymph % (Auto) 11.0 L Frio % (Auto) 9.5 H Eos % (Auto) 0.6 Baso % (Auto) 0.3 Lymph # (Auto) 1.16 Frio # (Auto) 1.0 H Eos # (Auto) 0.1 Baso # (Auto) 0.0 Abs Immat Gran (auto) 0.07 H Absolute Neuts (auto) 8.3 H Absolute Nucleated RBC 0.000 Nucleated RBC % 0.0 Sodium 137 Potassium 3.9 Chloride 106 Carbon Dioxide 27 Anion Gap 4 BUN 12 Creatinine 0.70 Estim Creat Clear Calc 74 Estimated GFR > 60 Glucose 134 H Calcium 9.2 Magnesium 1.9 Total Bilirubin 1.0 AST 32 ALT 30 Alkaline Phosphatase 70 Total Protein 6.0 L Albumin 3.5 Procalcitonin TSH Nasal MRSA (PCR) Blood Type O Positive Antibody Screen Negative Quality VTE Prophylaxis VTE prophylaxis: mechanical ordered
--- NOTE | 2024-04-18 14:44 | P.OP_ITS ---
Procedure Note - Detailed Date of Procedure 04/18/24 Pre-op Diagnosis Left Hip Fracture Post-op Diagnosis Same Procedure Performed Open reduction internal fixation left intertrochanteric hip fracture Surgeon Jaciel Pena MD Reversal [employer] Inspector [facility] Anesthesia General Description of Procedure Patient was brought to the operating room and general anesthesia was administered. The left thigh was scrubbed with the chlorhexidine cloth. He was transferred to the fracture table the left foot padded with soft roll and Coban and placed in the traction boot with ABD covering the top of the foot. The right hip is flexed and abducted out of the way. He was fairly stiff but anesthesia provided muscle relaxation which gave us enough exposure. The fracture was reduced with longitudinal traction and neutral rotation. This gave excellent reduction of the head neck fragment relative to the shaft. The lesser trochanter fragment which extended distally into the posteromedial calcar remained only mildly displaced. The left hip was prepped and draped usual fashion. A 1/2 inch longitudinal incision was made proximal to the greater trochanter. A guide pin drilled through the fascia and was position to be in the center of the greater trochanter on the lateral view in line with the canal and we used the starter Reamer to make a starter Reamer hole and a long guide elen was inserted over which we reamed the canal to 14.5 mm which clearly achieved any chatter and proximal femur intertrochanteric region reamed to 16.5 mm. We chose the Arthrex ES long elen 39 cm long 12.5 cm diameter 125 degree neck angle and this was inserted under manual pressure to the appropriate depth without difficulty. A guide pin was placed in the low center position on the AP view perfectly centered on the lateral view. The sliding hip screw hole was drilled and we chose a 105 mm sliding hip screw which was inserted to be flush with the lateral cortex which was about 11 mm from subchondral bone at the medial femoral head. The alignment was confirmed on the AP and lateral views and the screw locked with the locking sleeve and the activation pin to allow controlled compression was removed. The screw was placed in the mid shaft interlocking hole without difficulty. We then removed all the traction from the leg and compressed the fracture from medial to lateral and then placed an 85 mm anti rotation screw. The wounds were irrigated with antibiotic solution. The skin was closed with 2-0 subcutaneous Vicryl and glue. EBL was 150 cc. He received 2 g of Ancef weight based vancomycin 1 g of TXA preoperatively. He tolerated the anesthesia well it seems. He was transferred postop recovery room in stable condition. No known complications. [facility] Billing Surgery - Charge Forward: Surgery Billing (Open reduction internal fixation left intertrochanteric hip fracture with intramedullary trochanteric nail device.)
[2024-04-18] MEDS: LACTATED RINGERS 1,000 ML 30 ML IV CONT (14:50)
--- NOTE | 2024-04-18 14:58 | PM.OP ---
Procedure Note - Brief Procedure Note - Brief Date of procedure: 04/18/24 Left Hip Fracture Procedure performed: ORIF left intertrochanteric hip fracture Surgeon: MARIO Lee Findings: 84-year-old male who underwent ORIF of his left intertrochanteric hip fracture on 04/18. I was involved in the procedure including positioning patient on the OR table 1st assisting to the time surgery. Total time spent was 2hours
[2024-04-18] MEDS: ACETAMINOPHEN 325 MG TABLET 650 MG PO ×2 (17:11→20:47)
[2024-04-18] MEDS: SENNA/DOCUSATE SODIUM TABLET 2 TAB PO (17:11)
[2024-04-18] MEDS: MEMANTINE 10 MG TABLET PO (17:11)
[2024-04-18] MEDS: SODIUM CHLORIDE 0.9% IV 1,000 ML 125 ML IV CONT (17:15)
[2024-04-18] MEDS: METOPROLOL TARTRATE 25 MG TABLET PO (20:46)
[2024-04-18] MEDS: FAMOTIDINE 20 MG TABLET PO (20:47)
[2024-04-19] VITALS (9 sets, daily range): BP systolic 126–154; BP diastolic 48–64; PULSE 69–90; RESP 18–20; TEMP 36.7–37.1; O2SAT 92–97
[2024-04-19] MEDS: VANCOMYCIN 1,000 MG/NS 250 ML 1,000 MG/250 ML BAG 250 MG IVPB ×2 (00:30→11:06)
[2024-04-19] MEDS: ACETAMINOPHEN 325 MG TABLET 650 MG PO ×4 (00:30→20:55)
[2024-04-19] MEDS: SODIUM CHLORIDE 0.9% IV 1,000 ML 125 ML IV CONT (00:31)
[2024-04-19] MEDS: oxyCODONE HCL (*CRX) 2.5 MG TAB IR PO ×2 (05:59→13:46)
[2024-04-19] MEDS: ceFAZolin 2 GM/D5W 50 ML 2 GM/50 ML BAG IVPB ×2 (06:00→12:23)
[2024-04-19 06:27] LABS: Basophils Percent Auto 0.2 % (0.2-1.2); Eosinophils Percent Auto 0.1 % (0-4.4); Hematocrit 29.7 % (42.0-52.0); Hemoglobin 9.7 g/dL (14.0-18.0); Immature Granulocyte Absolute 0.14 K/mm3 (0.00-0.031); Immature Granulocyte Percent A 0.9 % (0-0.5); Lymphocytes Absolute Auto 1.43 K/mm3 (0.9-3.2); Lymphocytes Percent Auto 9.4 % (18.3-44.2); Mean Corpuscular HGB Conc 32.7 g/dl (32-36); Mean Corpuscular Hemoglobin 30.5 pg (26-34); Mean Corpuscular Volume 93.4 fl (80-100); Monocytes Absolute Auto 1.6 K/mm3 (0.1-0.6); Monocytes Percent Auto 10.7 % (2.6-8.5); Neutrophils Percent Auto 78.7 % (45.5-73.1); Platelet Count Result 200 k/mm3 (150-375); Red Blood Count 3.18 M/mm3 (4.6-6.20); Red Cell Distribution Width 13.4 % (11.5-14.5); White Blood Count 15.2 K/mm3 (4.5-10.0)
[2024-04-19 06:38] LABS: Albumin Level 3.5 g/dL (3.5-5.1); Alkaline Phosphatase 73 U/L (38-126); Anion Gap 11 mmol/L (4-12); Aspartate Amino Transferase 47 U/L (17-59); Blood Urea Nitrogen 9 mg/dL (9-20); Calcium 9.2 mg/dL (8.4-10.2); Carbon Dioxide 20 mmol/L (22-30); Chloride 108 mmol/L (98-107); Estimated CRCL calculation 74 ml/min; Estimated Glomerular Filt Rate > 60; Glucose 152 mg/dL (65-110); Potassium 4.2 mmol/L (3.4-5.0); Sodium 139 mmol/L (137-145)
[2024-04-19 06:43] LABS: Alanine Aminotransferase 36 U/L (6-50)
--- NOTE | 2024-04-19 08:04 | P.PNIM_ITS ---
Progress Note: A&P Assessment and Plan (1) Fall: Code(s): W19.XXXA - Unspecified fall, initial encounter Status: Acute Assessment and Plan: patient sustained a ground level fall on to his left hip * head CT was negative for any acute fracture or intracranial process, showed old lacunar infarct in the right basal ganglia, age-related changes including moderate to severe diffuse volume loss and extensive white matter hypoattenuation consistent with chronic small-vessel ischemic disease. * Cervical spine x-ray showed moderate to severe cervical and upper thoracic spondylosis, no acute osseous abnormality * hip and pelvis x-ray shown mildly displaced and angulated comminuted intratrochanteric fracture of the proximal left femur * continue fall precautions * PT and OT evaluate and treat (2) Hip fracture: Code(s): S72.009A - Fracture of unspecified part of neck of unspecified femur, initial encounter for closed fracture Status: Acute Assessment and Plan: Status post ORIF on 04/18/2024 * hip and pelvis x-ray shown mildly displaced and angulated comminuted intratrochanteric fracture of the proximal left femur * continue pain control * continue hip precautions * Orthopedic surgery consulted * medically stable from our perspective other than his sick sinus syndrome hoever a does have a pacemaker in place * Case coordination consulted for outpatient rehab needs * continue pain and nausea control * Weightbear as tolerated on left lower leg * PT and OT evaluate and treat (3) Pneumonia: Code(s): J18.9 - Pneumonia, unspecified organism Status: Acute Assessment and Plan: * chest x-ray showing mild opacities with bronchial wall thickening in the left lower lung zone representing pneumonia, cardiomegaly * patient was started on azithromycin and Rocephin * blood cultures no growth today * white blood cell count 15.2 * procalcitonin 0.0 * MRSA negative (4) Dementia: Code(s): F03.90 - Unspecified dementia, unspecified severity, without behavioral disturbance, psychotic disturbance, mood disturbance, and anxiety Status: Chronic Assessment and Plan: * continue Namenda (5) Hyperlipidemia: Code(s): E78.5 - Hyperlipidemia, unspecified Status: Chronic Assessment and Plan: * continue aspirin and atorvastatin (6) Hypertension: Code(s): I10 - Essential (primary) hypertension Status: Chronic Assessment and Plan: * blood pressure ranging 139/56 to 189/60 * continue amlodipine and lisinopril Time Spent With Patient Time with patient: Greater than 35 minutes Subjective Date/time seen: 04/19/24 08:04 Interval history: Interval history: This is an 84-year-old male with a significant past medical history severe Alzheimer's dementia, Anxiety, sick sinus syndrome status post pacemaker, BPH, hypertension, hyperlipidemia, TIA, hard of hearing, vitamin-D deficiency who presented to the hospital for evaluation after a ground level fall landing on his left hip. Left Hip Fracture s/p ORIF left intertrochanteric hip fracture on 04/18. subjective: patient denies any new complaints today. His signs are stable he is afebrile, he is on room air. Leukocytosis this morning at 15.2, postop drop in hemoglobin to 9.7, Eliquis restarted by Orthopedics, patient on azithromycin and Rocephin. No signs of acute bleeding on assessment. Plan for PT OT today for discharge recommendations Review of Systems Review of Systems: ROS unobtainable: Yes unobtainable due to mental status Exam Narrative: General: In no acute distress, well nourished Cardiac: Normal S1 and S2. No murmur, gallops or friction rubs, peripheral pulses intact. Respiratory: Lungs clear to auscultation, no adventitious lung sounds, currently on room air Gastrointestinal: soft, non-distended, non-tender, normoactive bowel sounds. : voiding without difficulty. Extremities: Left lower extremity with surgical dressing clean dry intact, no edema Skin: clean, dry, intact. No wounds or lesions. Neuro: Alert and confused Objective Data Vital Signs Vital Signs: Vital Signs - 24 hr 04/18/24 08:41 04/18/24 14:50 04/18/24 15:20 Temperature 97.7 F Pulse Rate 78 84 Respiratory Rate 16 18 Blood Pressure 177/67 H 165/85 H Pulse Oximetry 92 90 93 Oxygen Delivery Room Air Simple Face Mask Nasal Cannula Oxygen Flow Rate 10 3 04/18/24 15:35 04/18/24 15:50 04/18/24 15:05 Temperature 99.2 F Pulse Rate 86 81 85 Respiratory Rate 18 20 18 Blood Pressure 158/63 H 174/58 H 175/50 H Pulse Oximetry 95 96 96 Oxygen Delivery Nasal Cannula Nasal Cannula Nasal Cannula Oxygen Flow Rate 2 2 3 04/18/24 16:19 04/18/24 16:49 04/18/24 17:49 Temperature 98.4 F 98.6 F 98.8 F Pulse Rate 92 95 94 Respiratory Rate 20 20 20 Blood Pressure 144/59 H 141/60 H 136/64 Pulse Oximetry 90 91 90 Oxygen Delivery Oxygen Flow Rate 04/18/24 20:46 04/18/24 22:00 04/18/24 20:00 Temperature 97.6 F Pulse Rate 102 H 82 85 Respiratory Rate 16 Blood Pressure 117/53 L Pulse Oximetry 93 Oxygen Delivery Oxygen Flow Rate 04/19/24 00:00 04/19/24 04:00 04/19/24 06:00 Temperature 98.8 F Pulse Rate 85 69 85 Respiratory Rate 18 Blood Pressure 129/57 L Pulse Oximetry 97 Oxygen Delivery Oxygen Flow Rate Intake/Output Intake/Output: Intake & Output 04/16/24 04/17/24 04/18/24 04/19/24 23:59 23:59 23:59 23:59 Intake Total 4466 356 5494.3 Balance 1518 864 2700.3 Meds/Results Medications: Active Medications Generic Name Dose Route Start Last Admin Trade Name Donovanq PRN Reason Stop Dose Admin Acetaminophen 650 mg 04/18/24 17:00 04/19/24 05:59 Acetaminophen 325 Mg Tablet PO 650 mg Q4H ERNESTINE Administration Amlodipine Besylate 5 mg 04/18/24 09:00 04/18/24 10:15 Amlodipine Besylate 5 Mg Tablet PO 5 mg DAILY ERNESTINE Administration Apixaban 2.5 mg 04/19/24 09:00 Apixaban 2.5 Mg Tablet PO Q12HR [facility] Aspirin 81 mg 04/19/24 08:00 Aspirin 81 Mg Chewable Tablet PO DAILY@0800 ERNESTINE Atorvastatin Calcium 20 mg 04/18/24 09:00 04/18/24 08:33 Atorvastatin 20 Mg Tablet PO 20 mg DAILY ERNESTINE Administration Azithromycin 500 mg 04/19/24 09:00 Azithromycin 250 Mg Tablet PO 04/21/24 09:01 DAILY ERNESTINE Famotidine 20 mg 04/18/24 21:00 04/18/24 20:47 Famotidine 20 Mg Tablet PO 20 mg Q12HR ERNESTINE Administration Ceftriaxone Sodium 1 gm in 50 mls @ 100 mls/hr 04/18/24 09:00 04/18/24 09:03 Rocephin 1 Gm/Ns 50 Ml IVPB Infused Q24H ERNESTINE Infusion Sodium Chloride 1,000 mls @ 125 mls/hr 04/18/24 16:04 04/19/24 00:31 Normal Saline Iv IV CONT 125 mls/hr .Q8H ERNESTINE Administration Cefazolin Sodium 2 gm in 50 mls @ 100 mls/hr 04/18/24 21:00 04/19/24 06:00 Ancef 2 Gm/D5w 50 Ml IVPB 04/19/24 13:29 100 mls/hr Q8H ERNESTINE Administration Vancomycin HCl 1,000 mg in 250 mls @ 250 mls/hr 04/19/24 00:00 04/19/24 00:30 Vancomycin 1,000 Mg/Ns 250 Ml IVPB 04/19/24 12:59 250 mls/hr Q12H ERNESTINE Administration Memantine 10 mg 04/18/24 18:00 04/18/24 17:11 Memantine 10 Mg Tablet PO 10 mg QPM ERNESTINE Administration Metoprolol Tartrate 25 mg 04/18/24 21:00 04/18/24 20:46 Metoprolol Tartrate 25 Mg Tablet PO 25 mg Q12HR ERNESTINE Administration Naloxone HCl 0.1 mg 04/18/24 16:04 Naloxone Hcl 0.4 Mg/Ml Vial IV PUSH Q2M PRN Opiate Reversal Ondansetron HCl 4 mg 04/18/24 16:04 Ondansetron Inj 4 Mg/2 Ml Vial IV PUSH Q4H PRN Nausea And Vomiting Oxycodone HCl 2.5 mg 04/18/24 16:04 04/19/24 05:59 Oxycodone Hcl (*Crx) 2.5 Mg Tab Ir PO 2.5 mg Q4H PRN Administration Pain Rated 4-6 Polyethylene Glycol 17 gm 04/19/24 09:00 Polyethylene Glycol 3350 17 Gm Powd.Pack PO QAM ERNESTINE Senna/Docusate Sodium 2 tab 04/18/24 17:00 04/18/24 17:11 Senna/Docusate Sodium Tablet PO 2 tab BID ERNESTINE Administration Vitamin D 2,000 units 04/18/24 09:00 04/18/24 08:33 Cholecalciferol 1,000 Units Tablet PO 2,000 units DAILY ERNESTINE Administration Radiology Results: ITS Impressions Head CT 04/17/24 09:29 IMPRESSION: 1. No fracture or acute intracranial process. 2. 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 3. Age-related changes including moderate to severe diffuse volume loss and extensive white matter hypoattenuation consistent with chronic small vessel ischemic disease. Cervical Spine CT 04/17/24 09:44 IMPRESSION: 1. Moderate to severe cervical and upper thoracic spondylosis. No acute osseous abnormality. Hip/Pelvis X-Ray 04/17/24 09:55 IMPRESSION: 1. Mildly displaced and angulated comminuted intertrochanteric fracture of the proximal left femur. Chest X-Ray 04/18/24 08:34 IMPRESSION: 1. Persistent mild patchy airspace opacities in the left lower lung zone which could represent atelectasis or pneumonia. Intraoperative X-Ray 04/18/24 15:16 IMPRESSION: 1. Near-anatomic alignment post open reduction internal fixation of a comminuted intratrochanteric fracture of the proximal left femur. See procedure note for further detail. Labs Labs: Laboratory Results - last 24 hr 04/18/24 04/19/24 07:59 05:42 WBC 15.2 H RBC 3.18 L Hgb 9.7 L Hct 29.7 L MCV 93.4 MCH 30.5 MCHC 32.7 RDW 13.4 Plt Count 200 MPV 11.0 H Immature Gran % (Auto) 0.9 H Neut % (Auto) 78.7 H Lymph % (Auto) 9.4 L Kerr % (Auto) 10.7 H Eos % (Auto) 0.1 Baso % (Auto) 0.2 Lymph # (Auto) 1.43 Kerr # (Auto) 1.6 H Eos # (Auto) 0.0 Baso # (Auto) 0.0 Abs Immat Gran (auto) 0.14 H Absolute Neuts (auto) 12.0 H Absolute Nucleated RBC 0.000 Nucleated RBC % 0.0 Sodium 139 Potassium 4.2 Chloride 108 H Carbon Dioxide 20 L Anion Gap 11 BUN 9 Creatinine 0.70 Estim Creat Clear Calc 74 Estimated GFR > 60 Glucose 152 H Calcium 9.2 Total Bilirubin 1.0 AST 47 ALT 36 Alkaline Phosphatase 73 Total Protein 6.0 L Albumin 3.5 Blood Type O Positive Antibody Screen Negative Quality VTE Prophylaxis VTE prophylaxis: mechanical ordered and pharmacologic ordered Hospitalist [facility] Advance Care Plan I have confirmed that the patient's Advanced Care Plan is present, code status is documented, or surrogate decision maker is listed in patient medical record.: Yes Medication Reconciliation I have utilized all available resources to obtain, update and review the patients current medications (includes all prescriptions, OTC, herbals, cannabis, and nutritional supplements).: Yes
--- NOTE | 2024-04-19 09:29 | PCPTNOTE ---
attempted PT eval, pt unable to follow simple commands or answer orientation questions, when asked to wiggle his toes pt responded bless your heart and continued to say words that were muffled and PT could not understand, will follow if pt becomes more alert
--- NOTE | 2024-04-19 09:38 | PCOTNOTE ---
The patient initial skilled occupational therapy evaluation was not able to be completed on 04/19/2024 due to patient unable to follow commands/comprehend due to incoherence. Will plan to follow patient and evaluate when appropriate.
--- NOTE | 2024-04-19 11:35 | P.PNCA_ITS ---
Progress Note: A&P Assessment and Plan (1) Intertrochanteric fracture of left femur: Qualifiers: Encounter type: initial encounter Fracture type: closed Fracture alignment: displaced Qualified Code(s): S72.142A - Displaced intertrochanteric fracture of left femur, initial encounter for closed fracture Code(s): S72.142A - Displaced intertrochanteric fracture of left femur, initial encounter for closed fracture Status: Acute Assessment and Plan: 1. L # NOF s/p ORIF 2. SSS s/p pacemaker 3. Aflutter with variable block and controlled rate Rate controlled CHADSVASC 5 4. Pre-op evaluation - On Metoprolol 25 mg BID - Consider switching aspirin 325 to 81 mg - Pacemaker interrogation did not reveal any cardiac etiology for fall - he has been started on apixaban 2,.5 mg BID. Will need to be optimized to full dose when okay with surgery (2) Hypertension: Code(s): I10 - Essential (primary) hypertension Status: Chronic (3) Pre-op evaluation: Code(s): Z01.818 - Encounter for other preprocedural examination Status: Acute Subjective Date/time seen: 04/19/24 11:35 Interval history: s/P ORIF (04/18/2024) No acute events overnight Started on low dose Apixaban Review of Systems Review of Systems: ROS unobtainable: Yes unobtainable due to mental status Exam Narrative: General: In no acute distress, well nourished Head: atraumatic, no encephalopathy Eyes: PERRLA, sclera clear ENT: moist mucous membranes, nasal passages clear Neck: supple, no JVD, no adenopathy, trachea midline Cardiac: Normal S1 and S2. No murmur, gallops or friction rubs, peripheral pulses intact. Respiratory: Lungs clear to auscultation, no adventitious lung sounds, currently on room air Gastrointestinal: soft, non-distended, non-tender, normoactive bowel sounds. : voiding without difficulty. Extremities: moves all extremities Skin: clean, dry, intact. No wounds or lesions. Neuro: Alert and confused, cranial nerves intact, no neuro deficits. Psych: normal mood, normal affect, interactive Objective Data Vital Signs Vital Signs: Vital Signs - 24 hr 04/18/24 14:50 04/18/24 15:20 04/18/24 15:35 Temperature 36.5 C Pulse Rate 78 84 86 Respiratory Rate 16 18 18 Blood Pressure 177/67 H 165/85 H 158/63 H Pulse Oximetry 90 93 95 Oxygen Delivery Simple Face Mask Nasal Cannula Nasal Cannula Oxygen Flow Rate 10 3 2 04/18/24 15:50 04/18/24 15:05 04/18/24 16:19 Temperature 37.3 C 36.9 C Pulse Rate 81 85 92 Respiratory Rate 20 18 20 Blood Pressure 174/58 H 175/50 H 144/59 H Pulse Oximetry 96 96 90 Oxygen Delivery Nasal Cannula Nasal Cannula Oxygen Flow Rate 2 3 04/18/24 16:49 04/18/24 17:49 04/18/24 20:46 Temperature 37.0 C 37.1 C Pulse Rate 95 94 102 H Respiratory Rate 20 20 Blood Pressure 141/60 H 136/64 Pulse Oximetry 91 90 Oxygen Delivery Oxygen Flow Rate 04/18/24 22:00 04/18/24 20:00 04/19/24 00:00 Temperature 36.4 C Pulse Rate 82 85 85 Respiratory Rate 16 Blood Pressure 117/53 L Pulse Oximetry 93 Oxygen Delivery Oxygen Flow Rate 04/19/24 04:00 04/19/24 06:00 04/19/24 08:03 Temperature 37.1 C Pulse Rate 69 85 88 Respiratory Rate 18 Blood Pressure 129/57 L Pulse Oximetry 97 Oxygen Delivery Oxygen Flow Rate 04/19/24 09:12 Temperature Pulse Rate Respiratory Rate Blood Pressure Pulse Oximetry 97 Oxygen Delivery Nasal Cannula Oxygen Flow Rate 2 Intake/Output Intake/Output: Intake & Output 04/16/24 04/17/24 04/18/24 04/19/24 23:59 23:59 23:59 23:59 Intake Total 1012 031 5265.3 Balance 7360 390 5086.3 Meds/Results Medications: Active Medications Generic Name Dose Route Start Last Admin Trade Name Freq PRN Reason Stop Dose Admin Acetaminophen 650 mg 04/18/24 17:00 04/19/24 05:59 Acetaminophen 325 Mg Tablet PO 650 mg Q4H ERNESTINE Administration Amlodipine Besylate 5 mg 04/18/24 09:00 04/18/24 10:15 Amlodipine Besylate 5 Mg Tablet PO 5 mg DAILY ERNESTINE Administration Apixaban 2.5 mg 04/19/24 09:00 Apixaban 2.5 Mg Tablet PO Q12HR ERNESTINE Aspirin 81 mg 04/19/24 08:00 Aspirin 81 Mg Chewable Tablet PO DAILY@0800 [facility] Atorvastatin Calcium 20 mg 04/18/24 09:00 04/18/24 08:33 Atorvastatin 20 Mg Tablet PO 20 mg DAILY ERNESTINE Administration Azithromycin 500 mg 04/19/24 09:00 Azithromycin 250 Mg Tablet PO 04/21/24 09:01 DAILY [facility] Famotidine 20 mg 04/18/24 21:00 04/18/24 20:47 Famotidine 20 Mg Tablet PO 20 mg Q12HR ERNESTINE Administration Ceftriaxone Sodium 1 gm in 50 mls @ 100 mls/hr 04/18/24 09:00 04/19/24 09:41 Rocephin 1 Gm/Ns 50 Ml IVPB Infused Q24H [facility]INE Infusion Cefazolin Sodium 2 gm in 50 mls @ 100 mls/hr 04/18/24 21:00 04/19/24 06:30 Ancef 2 Gm/D5w 50 Ml IVPB 04/19/24 13:29 Infused Q8H [facility] Infusion Vancomycin HCl 1,000 mg in 250 mls @ 250 mls/hr 04/19/24 00:00 04/19/24 11:06 Vancomycin 1,000 Mg/Ns 250 Ml IVPB 04/19/24 12:59 250 mls/hr Q12H [facility] Administration Memantine 10 mg 04/18/24 18:00 04/18/24 17:11 Memantine 10 Mg Tablet PO 10 mg QPM ERNESTINE Administration Metoprolol Tartrate 25 mg 04/18/24 21:00 04/18/24 20:46 Metoprolol Tartrate 25 Mg Tablet PO 25 mg Q12HR [facility] Administration Naloxone HCl 0.1 mg 04/18/24 16:04 Naloxone Hcl 0.4 Mg/Ml Vial IV PUSH Q2M PRN Opiate Reversal Ondansetron HCl 4 mg 04/18/24 16:04 Ondansetron Inj 4 Mg/2 Ml Vial IV PUSH Q4H PRN Nausea And Vomiting Oxycodone HCl 2.5 mg 04/18/24 16:04 04/19/24 05:59 Oxycodone Hcl (*Crx) 2.5 Mg Tab Ir PO 2.5 mg Q4H PRN Administration Pain Rated 4-6 Polyethylene Glycol 17 gm 04/19/24 09:00 Polyethylene Glycol 3350 17 Gm Powd.Pack PO QAM [facility] Senna/Docusate Sodium 2 tab 04/18/24 17:00 04/18/24 17:11 Senna/Docusate Sodium Tablet PO 2 tab BID [facility]INE Administration Vitamin D 2,000 units 04/18/24 09:00 04/18/24 08:33 Cholecalciferol 1,000 Units Tablet PO 2,000 units DAILY ERNESTINE Administration Radiology Results: ITS Impressions Head CT 04/17/24 09:29 IMPRESSION: 1. No fracture or acute intracranial process. 2. 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 3. Age-related changes including moderate to severe diffuse volume loss and extensive white matter hypoattenuation consistent with chronic small vessel ischemic disease. Cervical Spine CT 04/17/24 09:44 IMPRESSION: 1. Moderate to severe cervical and upper thoracic spondylosis. No acute osseous abnormality. Hip/Pelvis X-Ray 04/17/24 09:55 IMPRESSION: 1. Mildly displaced and angulated comminuted intertrochanteric fracture of the proximal left femur. Chest X-Ray 04/18/24 08:34 IMPRESSION: 1. Persistent mild patchy airspace opacities in the left lower lung zone which could represent atelectasis or pneumonia. Intraoperative X-Ray 04/18/24 15:16 IMPRESSION: 1. Near-anatomic alignment post open reduction internal fixation of a comminuted intratrochanteric fracture of the proximal left femur. See procedure note for further detail. Labs Labs: Laboratory Results - last 24 hr 04/19/24 05:42 WBC 15.2 H RBC 3.18 L Hgb 9.7 L Hct 29.7 L MCV 93.4 MCH 30.5 MCHC 32.7 RDW 13.4 Plt Count 200 MPV 11.0 H Immature Gran % (Auto) 0.9 H Neut % (Auto) 78.7 H Lymph % (Auto) 9.4 L [place] % (Auto) 10.7 H Eos % (Auto) 0.1 Baso % (Auto) 0.2 Lymph # (Auto) 1.43 [place] # (Auto) 1.6 H Eos # (Auto) 0.0 Baso # (Auto) 0.0 Abs Immat Gran (auto) 0.14 H Absolute Neuts (auto) 12.0 H Absolute Nucleated RBC 0.000 Nucleated RBC % 0.0 Sodium 139 Potassium 4.2 Chloride 108 H Carbon Dioxide 20 L Anion Gap 11 BUN 9 Creatinine 0.70 Estim Creat Clear Calc 74 Estimated GFR > 60 Glucose 152 H Calcium 9.2 Total Bilirubin 1.0 AST 47 ALT 36 Alkaline Phosphatase 73 Total Protein 6.0 L Albumin 3.5
--- NOTE | 2024-04-19 12:22 | PM.PNORT ---
Progress Note: A&P Assessment and Plan (1) Intertrochanteric fracture of left femur: Qualifiers: Encounter type: initial encounter Fracture type: closed Fracture alignment: displaced Qualified Code(s): S72.142A - Displaced intertrochanteric fracture of left femur, initial encounter for closed fracture Code(s): S72.142A - Displaced intertrochanteric fracture of left femur, initial encounter for closed fracture Status: Acute Assessment and Plan: Patient is postop operative day 1 after left intertrochanteric hip fracture internal fixation. He is alert. He is a little bit somnolent. His and daughter are at the bedside and advised me that he was more somnolent earlier and was unable much to cooperate with physical therapy this morning so he has not been out of bed yet. His wounds are dry without His hemoglobin is not. He is afebrile with stable vital signs this morning. Assessment and plan stable postoperatively. History of severe dementia increased somnolence this morning but now arouses normally. Acute blood loss anemia expected with this pattern of fracture. Labs in am. Subjective Subjective Date/Time Seen: 04/19/24 12:22 Objective Data Vital Signs Vital Signs: Vital Signs - 24 hr 04/18/24 14:50 04/18/24 15:20 04/18/24 15:35 Temperature 36.5 C Pulse Rate 78 84 86 Respiratory Rate 16 18 18 Blood Pressure 177/67 H 165/85 H 158/63 H Pulse Oximetry 90 93 95 Oxygen Delivery Simple Face Mask Nasal Cannula Nasal Cannula Oxygen Flow Rate 10 3 2 04/18/24 15:50 04/18/24 15:05 04/18/24 16:19 Temperature 37.3 C 36.9 C Pulse Rate 81 85 92 Respiratory Rate 20 18 20 Blood Pressure 174/58 H 175/50 H 144/59 H Pulse Oximetry 96 96 90 Oxygen Delivery Nasal Cannula Nasal Cannula Oxygen Flow Rate 2 3 04/18/24 16:49 04/18/24 17:49 04/18/24 20:46 Temperature 37.0 C 37.1 C Pulse Rate 95 94 102 H Respiratory Rate 20 20 Blood Pressure 141/60 H 136/64 Pulse Oximetry 91 90 Oxygen Delivery Oxygen Flow Rate 04/18/24 22:00 04/18/24 20:00 04/19/24 00:00 Temperature 36.4 C Pulse Rate 82 85 85 Respiratory Rate 16 Blood Pressure 117/53 L Pulse Oximetry 93 Oxygen Delivery Oxygen Flow Rate 04/19/24 04:00 04/19/24 06:00 04/19/24 08:03 Temperature 37.1 C Pulse Rate 69 85 88 Respiratory Rate 18 Blood Pressure 129/57 L Pulse Oximetry 97 Oxygen Delivery Oxygen Flow Rate 04/19/24 09:12 Temperature Pulse Rate Respiratory Rate Blood Pressure Pulse Oximetry 97 Oxygen Delivery Nasal Cannula Oxygen Flow Rate 2 Intake/Output Intake/Output: Intake & Output 04/16/24 04/17/24 04/18/24 04/19/24 23:59 23:59 23:59 23:59 Intake Total 6608 033 3192.3 Balance 9850 974 2272.3 Meds/Results Medications: Active Medications Generic Name Dose Route Start Last Admin Trade Name Freq PRN Reason Stop Dose Admin Acetaminophen 650 mg 04/18/24 17:00 04/19/24 05:59 Acetaminophen 325 Mg Tablet PO 650 mg Q4H ERNESTINE Administration Amlodipine Besylate 5 mg 04/18/24 09:00 04/18/24 10:15 Amlodipine Besylate 5 Mg Tablet PO 5 mg DAILY ERNESTINE Administration Apixaban 2.5 mg 04/19/24 09:00 Apixaban 2.5 Mg Tablet PO Q12HR ERNESTINE Aspirin 81 mg 04/19/24 08:00 Aspirin 81 Mg Chewable Tablet PO DAILY@0800 [facility] Atorvastatin Calcium 20 mg 04/18/24 09:00 04/18/24 08:33 Atorvastatin 20 Mg Tablet PO 20 mg DAILY ERNESTINE Administration Azithromycin 500 mg 04/19/24 09:00 Azithromycin 250 Mg Tablet PO 04/21/24 09:01 DAILY [facility] Famotidine 20 mg 04/18/24 21:00 04/18/24 20:47 Famotidine 20 Mg Tablet PO 20 mg Q12HR ERNESTINE Administration Ceftriaxone Sodium 1 gm in 50 mls @ 100 mls/hr 04/18/24 09:00 04/19/24 09:41 Rocephin 1 Gm/Ns 50 Ml IVPB Infused Q24H [facility] Infusion Cefazolin Sodium 2 gm in 50 mls @ 100 mls/hr 04/18/24 21:00 04/19/24 06:30 Ancef 2 Gm/D5w 50 Ml IVPB 04/19/24 13:29 Infused Q8H [facility] Infusion Vancomycin HCl 1,000 mg in 250 mls @ 250 mls/hr 04/19/24 00:00 04/19/24 11:06 Vancomycin 1,000 Mg/Ns 250 Ml IVPB 04/19/24 12:59 250 mls/hr Q12H [facility]INE Administration Memantine 10 mg 04/18/24 18:00 04/18/24 17:11 Memantine 10 Mg Tablet PO 10 mg QPM ERNESTINE Administration Metoprolol Tartrate 25 mg 04/18/24 21:00 04/18/24 20:46 Metoprolol Tartrate 25 Mg Tablet PO 25 mg Q12HR ERNESTINE Administration Naloxone HCl 0.1 mg 04/18/24 16:04 Naloxone Hcl 0.4 Mg/Ml Vial IV PUSH Q2M PRN Opiate Reversal Ondansetron HCl 4 mg 04/18/24 16:04 Ondansetron Inj 4 Mg/2 Ml Vial IV PUSH Q4H PRN Nausea And Vomiting Oxycodone HCl 2.5 mg 04/18/24 16:04 04/19/24 05:59 Oxycodone Hcl (*Crx) 2.5 Mg Tab Ir PO 2.5 mg Q4H PRN Administration Pain Rated 4-6 Polyethylene Glycol 17 gm 04/19/24 09:00 Polyethylene Glycol 3350 17 Gm Powd.Pack PO QAM [facility] Senna/Docusate Sodium 2 tab 04/18/24 17:00 04/18/24 17:11 Senna/Docusate Sodium Tablet PO 2 tab BID ERNESTINE Administration Vitamin D 2,000 units 04/18/24 09:00 04/18/24 08:33 Cholecalciferol 1,000 Units Tablet PO 2,000 units DAILY ERNESTINE Administration Radiology Results: ITS Impressions Head CT 04/17/24 09:29 IMPRESSION: 1. No fracture or acute intracranial process. 2. 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 3. Age-related changes including moderate to severe diffuse volume loss and extensive white matter hypoattenuation consistent with chronic small vessel ischemic disease. Cervical Spine CT 04/17/24 09:44 IMPRESSION: 1. Moderate to severe cervical and upper thoracic spondylosis. No acute osseous abnormality. Hip/Pelvis X-Ray 04/17/24 09:55 IMPRESSION: 1. Mildly displaced and angulated comminuted intertrochanteric fracture of the proximal left femur. Chest X-Ray 04/18/24 08:34 IMPRESSION: 1. Persistent mild patchy airspace opacities in the left lower lung zone which could represent atelectasis or pneumonia. Intraoperative X-Ray 04/18/24 15:16 IMPRESSION: 1. Near-anatomic alignment post open reduction internal fixation of a comminuted intratrochanteric fracture of the proximal left femur. See procedure note for further detail. Labs Labs: Laboratory Results - last 24 hr 04/19/24 05:42 WBC 15.2 H RBC 3.18 L Hgb 9.7 L Hct 29.7 L MCV 93.4 MCH 30.5 MCHC 32.7 RDW 13.4 Plt Count 200 MPV 11.0 H Immature Gran % (Auto) 0.9 H Neut % (Auto) 78.7 H Lymph % (Auto) 9.4 L [place] % (Auto) 10.7 H Eos % (Auto) 0.1 Baso % (Auto) 0.2 Lymph # (Auto) 1.43 [place] # (Auto) 1.6 H Eos # (Auto) 0.0 Baso # (Auto) 0.0 Abs Immat Gran (auto) 0.14 H Absolute Neuts (auto) 12.0 H Absolute Nucleated RBC 0.000 Nucleated RBC % 0.0 Sodium 139 Potassium 4.2 Chloride 108 H Carbon Dioxide 20 L Anion Gap 11 BUN 9 Creatinine 0.70 Estim Creat Clear Calc 74 Estimated GFR > 60 Glucose 152 H Calcium 9.2 Total Bilirubin 1.0 AST 47 ALT 36 Alkaline Phosphatase 73 Total Protein 6.0 L Albumin 3.5
[2024-04-19 18:00] LABS: Glucose Point of Care 106 mg/dl (65-105)
[2024-04-19] MEDS: FAMOTIDINE 20 MG TABLET PO (20:54)
[2024-04-19] MEDS: METOPROLOL TARTRATE 25 MG TABLET PO (20:54)
[2024-04-19] MEDS: APIXABAN 2.5 MG TABLET PO (20:54)
[2024-04-20] MEDS: ACETAMINOPHEN 325 MG TABLET 650 MG PO ×4 (04:55→21:01)
[2024-04-20 06:00] VITALS: BP 162/44; PULSE 72; RESP 20; TEMP 36.4; O2SAT 93
[2024-04-20 06:37] LABS: Basophils Percent Auto 0.4 % (0.2-1.2); Eosinophils Absolute Auto 0.2 K/mm3 (0-0.3); Hemoglobin 8.6 g/dL (14.0-18.0); Lymphocytes Absolute Auto 0.84 K/mm3 (0.9-3.2); Lymphocytes Percent Auto 8.5 % (18.3-44.2); Mean Corpuscular HGB Conc 33.1 g/dl (32-36); Mean Corpuscular Hemoglobin 29.9 pg (26-34); Mean Corpuscular Volume 90.3 fl (80-100); Mean Platelet Volume 10.9 fl (7.4-10.4); Monocytes Absolute Auto 0.9 K/mm3 (0.1-0.6); Monocytes Percent Auto 9.3 % (2.6-8.5); Neutrophils Absolute Auto 7.8 K/mm3 (1.3-6.7); Neutrophils Percent Auto 78.8 % (45.5-73.1); Platelet Count Result 151 k/mm3 (150-375); Red Blood Count 2.88 M/mm3 (4.6-6.20); Red Cell Distribution Width 13.6 % (11.5-14.5); White Blood Count 9.9 K/mm3 (4.5-10.0)
[2024-04-20 06:47] LABS: Alanine Aminotransferase 24 U/L (6-50); Albumin Level 3.1 g/dL (3.5-5.1); Alkaline Phosphatase 67 U/L (38-126); Anion Gap 3 mmol/L (4-12); Aspartate Amino Transferase 35 U/L (17-59); Bilirubin,Total 0.8 mg/dL (0.2-1.3); Blood Urea Nitrogen 10 mg/dL (9-20); Carbon Dioxide 28 mmol/L (22-30); Chloride 107 mmol/L (98-107); Estimated CRCL calculation 85 ml/min; Estimated Glomerular Filt Rate > 60; Glucose 113 mg/dL (65-110); Potassium 3.7 mmol/L (3.4-5.0); Sodium 138 mmol/L (137-145)
--- NOTE | 2024-04-20 07:35 | P.PNIM_ITS ---
Progress Note: A&P Assessment and Plan (1) Fall: Code(s): W19.XXXA - Unspecified fall, initial encounter Status: Acute Assessment and Plan: patient sustained a ground level fall on to his left hip * head CT was negative for any acute fracture or intracranial process, showed old lacunar infarct in the right basal ganglia, age-related changes including moderate to severe diffuse volume loss and extensive white matter hypoattenuation consistent with chronic small-vessel ischemic disease. * Cervical spine x-ray showed moderate to severe cervical and upper thoracic spondylosis, no acute osseous abnormality * hip and pelvis x-ray shown mildly displaced and angulated comminuted intratrochanteric fracture of the proximal left femur * continue fall precautions * PT and OT evaluate and treat, currently unable to work with PT and OT due to not being year old follow commands patient may need SNF placement (2) Hip fracture: Code(s): S72.009A - Fracture of unspecified part of neck of unspecified femur, initial encounter for closed fracture Status: Acute Assessment and Plan: Status post ORIF on 04/18/2024 * hip and pelvis x-ray shown mildly displaced and angulated comminuted intratrochanteric fracture of the proximal left femur * continue pain control * continue hip precautions * Orthopedic surgery consulted * medically stable from our perspective other than his sick sinus syndrome however does have a pacemaker in place * Case coordination consulted for outpatient rehab needs * continue pain and nausea control * Weightbear as tolerated on left lower leg * PT and OT evaluate and treat (3) Pneumonia: Code(s): J18.9 - Pneumonia, unspecified organism Status: Acute Assessment and Plan: * chest x-ray showing mild opacities with bronchial wall thickening in the left lower lung zone representing pneumonia, cardiomegaly * patient was started on azithromycin and Rocephin * blood cultures no growth to date Leukocytosis resolved * procalcitonin 0.0 * MRSA negative (4) Dementia: Code(s): F03.90 - Unspecified dementia, unspecified severity, without behavioral disturbance, psychotic disturbance, mood disturbance, and anxiety Status: Chronic Assessment and Plan: * continue Namenda (5) Hyperlipidemia: Code(s): E78.5 - Hyperlipidemia, unspecified Status: Chronic Assessment and Plan: * continue aspirin and atorvastatin (6) Hypertension: Code(s): I10 - Essential (primary) hypertension Status: Chronic Assessment and Plan: * blood pressure ranging 139/56 to 189/60 * continue amlodipine and lisinopril (7) Acute blood loss anemia: Code(s): D62 - Acute posthemorrhagic anemia Status: Acute Assessment and Plan: Anemia of chronic disease at baseline Likely due to fracture and delusional Presents acute bleeding at this time, continue monitor Daily CBC, transfuse for hemoglobin less than 7 or symptomatic Restarted on low-dose Eliquis yesterday by Orthopedics Time Spent With Patient Time with patient: Greater than 35 minutes Subjective Date/time seen: 04/20/24 07:35 Interval history: Interval history: This is an 84-year-old male with a significant past medical history severe Alzheimer's dementia, Anxiety, sick sinus syndrome status post pacemaker, BPH, hypertension, hyperlipidemia, TIA, hard of hearing, vitamin-D deficiency who presented to the hospital for evaluation after a ground level fall landing on his left hip. Left Hip Fracture s/p ORIF left intertrochanteric hip fracture on 04/18. subjective: Leukocytosis resolved patient on azithromycin and Rocephin. Hemoglobin continued to drift down, No signs of acute bleeding on assessment. Patient too confused yesterday to work with PT and OT. Patient oriented to self today. Review of Systems Review of Systems: ROS unobtainable: Yes unobtainable due to mental status Exam Narrative: General: In no acute distress, well nourished Cardiac: Normal S1 and S2. No murmur, gallops or friction rubs, peripheral pulses intact. Respiratory: Lungs clear to auscultation, no adventitious lung sounds, currently on room air Gastrointestinal: soft, non-distended, non-tender, normoactive bowel sounds. : voiding without difficulty. Extremities: Left lower extremity with surgical dressing clean dry intact, no edema Skin: clean, dry, intact. No wounds or lesions. Neuro: Alert and confused Objective Data Vital Signs Vital Signs: Vital Signs - 24 hr 04/19/24 08:03 04/19/24 09:12 04/19/24 12:00 Temperature Pulse Rate 88 90 Respiratory Rate Blood Pressure Pulse Oximetry 97 Oxygen Delivery Nasal Cannula Oxygen Flow Rate 2 04/19/24 14:35 04/19/24 20:54 04/19/24 21:42 Temperature 98.1 F 98.3 F Pulse Rate 88 84 86 Respiratory Rate 20 20 Blood Pressure 126/48 L 154/64 H Pulse Oximetry 93 92 Oxygen Delivery Oxygen Flow Rate 04/19/24 20:00 04/20/24 06:00 Temperature 97.6 F Pulse Rate 72 Respiratory Rate 20 Blood Pressure 162/44 H Pulse Oximetry 93 Oxygen Delivery Room Air Oxygen Flow Rate Intake/Output Intake/Output: Intake & Output 04/17/24 04/18/24 04/19/24 04/20/24 23:59 23:59 23:59 23:59 Intake Total 9929 987 4023.3 0 Output Total 200 Balance 0129 521 8028.3 -200 Meds/Results Medications: Active Medications Generic Name Dose Route Start Last Admin Trade Name Freq PRN Reason Stop Dose Admin Acetaminophen 650 mg 04/18/24 17:00 04/20/24 04:55 Acetaminophen 325 Mg Tablet PO 650 mg Q4H ERNESTINE Administration Amlodipine Besylate 5 mg 04/18/24 09:00 04/19/24 13:56 Amlodipine Besylate 5 Mg Tablet PO Not Given DAILY ERNESTINE Apixaban 2.5 mg 04/19/24 09:00 04/19/24 20:54 Apixaban 2.5 Mg Tablet PO 2.5 mg Q12HR ERNESTINE Administration Aspirin 81 mg 04/19/24 08:00 04/19/24 13:56 Aspirin 81 Mg Chewable Tablet PO Not Given DAILY@0800 [facility] Atorvastatin Calcium 20 mg 04/18/24 09:00 04/19/24 13:56 Atorvastatin 20 Mg Tablet PO Not Given DAILY ERNESTINE Azithromycin 500 mg 04/19/24 09:00 04/19/24 13:56 Azithromycin 250 Mg Tablet PO 04/21/24 09:01 Not Given DAILY ERNESTINE Famotidine 20 mg 04/18/24 21:00 04/19/24 20:54 Famotidine 20 Mg Tablet PO 20 mg Q12HR ERNESTINE Administration Ceftriaxone Sodium 1 gm in 50 mls @ 100 mls/hr 04/18/24 09:00 04/19/24 09:41 Rocephin 1 Gm/Ns 50 Ml IVPB Infused Q24H [facility] Infusion Memantine 10 mg 04/18/24 18:00 04/19/24 18:46 Memantine 10 Mg Tablet PO Not Given QPM ERNESTINE Metoprolol Tartrate 25 mg 04/18/24 21:00 04/19/24 20:54 Metoprolol Tartrate 25 Mg Tablet PO 25 mg Q12HR ERNESTINE Administration Naloxone HCl 0.1 mg 04/18/24 16:04 Naloxone Hcl 0.4 Mg/Ml Vial IV PUSH Q2M PRN Opiate Reversal Ondansetron HCl 4 mg 04/18/24 16:04 Ondansetron Inj 4 Mg/2 Ml Vial IV PUSH Q4H PRN Nausea And Vomiting Oxycodone HCl 2.5 mg 04/18/24 16:04 04/19/24 13:46 Oxycodone Hcl (*Crx) 2.5 Mg Tab Ir PO 2.5 mg Q4H PRN Administration Pain Rated 4-6 Polyethylene Glycol 17 gm 04/19/24 09:00 04/19/24 13:57 Polyethylene Glycol 3350 17 Gm Powd.Pack PO Not Given QAM [facility] Senna/Docusate Sodium 2 tab 04/18/24 17:00 04/19/24 18:46 Senna/Docusate Sodium Tablet PO Not Given BID [facility] Vitamin D 2,000 units 04/18/24 09:00 04/19/24 13:56 Cholecalciferol 1,000 Units Tablet PO Not Given DAILY [facility] Radiology Results: ITS Impressions Head CT 04/17/24 09:29 IMPRESSION: 1. No fracture or acute intracranial process. 2. 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 3. Age-related changes including moderate to severe diffuse volume loss and extensive white matter hypoattenuation consistent with chronic small vessel ischemic disease. Cervical Spine CT 04/17/24 09:44 IMPRESSION: 1. Moderate to severe cervical and upper thoracic spondylosis. No acute osseous abnormality. Hip/Pelvis X-Ray 04/17/24 09:55 IMPRESSION: 1. Mildly displaced and angulated comminuted intertrochanteric fracture of the proximal left femur. Chest X-Ray 04/18/24 08:34 IMPRESSION: 1. Persistent mild patchy airspace opacities in the left lower lung zone which could represent atelectasis or pneumonia. Intraoperative X-Ray 04/18/24 15:16 IMPRESSION: 1. Near-anatomic alignment post open reduction internal fixation of a comminuted intratrochanteric fracture of the proximal left femur. See procedure note for further detail. Labs Labs: Laboratory Results - last 24 hr 04/19/24 04/20/24 17:58 06:03 WBC 9.9 RBC 2.88 L Hgb 8.6 L Hct 26.0 L MCV 90.3 MCH 29.9 MCHC 33.1 RDW 13.6 Plt Count 151 MPV 10.9 H Immature Gran % (Auto) 1.0 H Neut % (Auto) 78.8 H Lymph % (Auto) 8.5 L [place] % (Auto) 9.3 H Eos % (Auto) 2.0 Baso % (Auto) 0.4 Lymph # (Auto) 0.84 L [place] # (Auto) 0.9 H Eos # (Auto) 0.2 Baso # (Auto) 0.0 Abs Immat Gran (auto) 0.10 H Absolute Neuts (auto) 7.8 H Absolute Nucleated RBC 0.000 Nucleated RBC % 0.0 Sodium 138 Potassium 3.7 Chloride 107 Carbon Dioxide 28 Anion Gap 3 L BUN 10 Creatinine 0.60 L Estim Creat Clear Calc 85 Estimated GFR > 60 Glucose 113 H POC Capillary Glucose 106 H Calcium 9.0 Total Bilirubin 0.8 AST 35 ALT 24 Alkaline Phosphatase 67 Total Protein 6.0 L Albumin 3.1 L Quality VTE Prophylaxis VTE prophylaxis: mechanical ordered and pharmacologic ordered
--- NOTE | 2024-04-20 08:47 | PCOTNOTE ---
Attempted skilled occupational therapy initial evaluation again with patient refusing to open eyes. However, would respond in grunts and words that did not form a response. At this time, patient is not alert enough or able to consciously participate in OT evaluation at this time, will follow and evaluate when able.
--- NOTE | 2024-04-20 09:12 | PCPTNOTE ---
attempted PT eval again, pt refused to open eyes but would respond in grunts and words that did not form a response, pt is not alert enough or able to consciously participate in PT evaluation at this time, will follow
[2024-04-20 10:26] VITALS: BP 143/54; PULSE 85; RESP 16; O2SAT 95
[2024-04-20] MEDS: SENNA/DOCUSATE SODIUM TABLET 2 TAB PO ×2 (10:28→18:14)
[2024-04-20] MEDS: amLODIPine BESYLATE 5 MG TABLET PO (10:28)
[2024-04-20] MEDS: ASPIRIN 81 MG CHEWABLE TABLET PO (10:28)
[2024-04-20 10:29] VITALS: PULSE 86
[2024-04-20] MEDS: AZITHROMYCIN 250 MG TABLET 500 MG PO (10:29)
[2024-04-20] MEDS: ATORVASTATIN 20 MG TABLET PO (10:29)
[2024-04-20] MEDS: CHOLECALCIFEROL 1,000 UNITS TABLET 2000 UNITS PO (10:29)
[2024-04-20] MEDS: polyethylene glycoL 3350 17 GM POWD.PACK PO (10:29)
[2024-04-20] MEDS: APIXABAN 2.5 MG TABLET PO ×2 (10:29→21:01)
[2024-04-20] MEDS: METOPROLOL TARTRATE 25 MG TABLET PO ×2 (10:29→21:01)
[2024-04-20] MEDS: FAMOTIDINE 20 MG TABLET PO ×2 (10:29→21:02)
--- NOTE | 2024-04-20 11:30 | PC.NURSE ---
RN assumed care
[2024-04-20 14:00] VITALS: BP 128/52; PULSE 66; RESP 17; TEMP 36.6; O2SAT 94
[2024-04-20] MEDS: MEMANTINE 10 MG TABLET PO (18:14)
--- NOTE | 2024-04-20 18:16 | P.PNOP_ITS ---
Progress Note: A&P Assessment and Plan (1) Intertrochanteric fracture of left femur: Qualifiers: Encounter type: initial encounter Fracture type: closed Fracture alignment: displaced Qualified Code(s): S72.142A - Displaced intertrochanteric fracture of left femur, initial encounter for closed fracture Code(s): S72.142A - Displaced intertrochanteric fracture of left femur, initial encounter for closed fracture Status: Acute Assessment and Plan: Postop day number 2 after internal fixation of left intertrochanteric hip fracture. Patient is on Eliquis for DVT prophylaxis. Hemoglobin this morning is 8.6. Platelets [id number]. Creatinine normal at 0.6 creatinine clearance 85. His wounds are covered and the dressings are dry. He has had he has mild swelling around the left hip and thigh diffusely. No swelling or edema below the knee Patient states he is not hungry today. He is much more alert today and conversant with his very clear articulate speech but he is very confused and the conversations do not make sense. Is polite and in good spirits. He refused to cooperate with physical therapy to get him out of bed today. If he refuses physical therapy tomorrow I think we should institute a Grace lift so that he can be mobilized the chair. Subjective Subjective Date/Time Seen: 04/20/24 18:16 Objective Data Vital Signs Vital Signs: Vital Signs - 24 hr 04/19/24 20:54 04/19/24 21:42 04/19/24 20:00 Temperature 36.8 C Pulse Rate 84 86 Respiratory Rate 20 Blood Pressure 154/64 H Pulse Oximetry 92 Oxygen Delivery Room Air 04/20/24 06:00 04/20/24 10:26 04/20/24 10:29 Temperature 36.4 C Pulse Rate 72 85 86 Respiratory Rate 20 16 Blood Pressure 162/44 H 143/54 H Pulse Oximetry 93 95 Oxygen Delivery 04/20/24 10:30 04/20/24 14:00 Temperature 36.6 C Pulse Rate 66 Respiratory Rate 17 Blood Pressure 128/52 L Pulse Oximetry 94 Oxygen Delivery Room Air Intake/Output Intake/Output: Intake & Output 04/17/24 04/18/24 04/19/24 04/20/24 23:59 23:59 23:59 23:59 Intake Total 9700 665 8256.3 730 Output Total 500 Balance 8016 224 6765.3 230 Meds/Results Medications: Active Medications Generic Name Dose Route Start Last Admin Trade Name Freq PRN Reason Stop Dose Admin Acetaminophen 650 mg 04/18/24 17:00 04/20/24 13:31 Acetaminophen 325 Mg Tablet PO Not Given Q4H ERNESTINE Amlodipine Besylate 5 mg 04/18/24 09:00 04/20/24 10:28 Amlodipine Besylate 5 Mg Tablet PO 5 mg DAILY ERNESTINE Administration Apixaban 2.5 mg 04/19/24 09:00 04/20/24 10:29 Apixaban 2.5 Mg Tablet PO 2.5 mg Q12HR ERNESTINE Administration Aspirin 81 mg 04/19/24 08:00 04/20/24 10:28 Aspirin 81 Mg Chewable Tablet PO 81 mg DAILY@0800 ERNESTINE Administration Atorvastatin Calcium 20 mg 04/18/24 09:00 04/20/24 10:29 Atorvastatin 20 Mg Tablet PO 20 mg DAILY ERNESTINE Administration Azithromycin 500 mg 04/19/24 09:00 04/20/24 10:29 Azithromycin 250 Mg Tablet PO 04/21/24 09:01 500 mg DAILY ERNESTINE Administration Famotidine 20 mg 04/18/24 21:00 04/20/24 10:29 Famotidine 20 Mg Tablet PO 20 mg Q12HR ERNESTINE Administration Ceftriaxone Sodium 1 gm in 50 mls @ 100 mls/hr 04/18/24 09:00 04/20/24 10:59 Rocephin 1 Gm/Ns 50 Ml IVPB Infused Q24H ERNESTINE Infusion Memantine 10 mg 04/18/24 18:00 04/19/24 18:46 Memantine 10 Mg Tablet PO Not Given QPM ERNESTINE Metoprolol Tartrate 25 mg 04/18/24 21:00 04/20/24 10:29 Metoprolol Tartrate 25 Mg Tablet PO 25 mg Q12HR ERNESTINE Administration Naloxone HCl 0.1 mg 04/18/24 16:04 Naloxone Hcl 0.4 Mg/Ml Vial IV PUSH Q2M PRN Opiate Reversal Ondansetron HCl 4 mg 04/18/24 16:04 Ondansetron Inj 4 Mg/2 Ml Vial IV PUSH Q4H PRN Nausea And Vomiting Oxycodone HCl 2.5 mg 04/18/24 16:04 04/19/24 13:46 Oxycodone Hcl (*Crx) 2.5 Mg Tab Ir PO 2.5 mg Q4H PRN Administration Pain Rated 4-6 Polyethylene Glycol 17 gm 04/19/24 09:00 04/20/24 10:29 Polyethylene Glycol 3350 17 Gm Powd.Pack PO 17 gm QAM ERNESTINE Administration Senna/Docusate Sodium 2 tab 04/18/24 17:00 04/20/24 10:28 Senna/Docusate Sodium Tablet PO 2 tab BID ERNESTINE Administration Vitamin D 2,000 units 04/18/24 09:00 04/20/24 10:29 Cholecalciferol 1,000 Units Tablet PO 2,000 units DAILY ERNESTINE Administration Radiology Results: ITS Impressions Head CT 04/17/24 09:29 IMPRESSION: 1. No fracture or acute intracranial process. 2. 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 3. Age-related changes including moderate to severe diffuse volume loss and extensive white matter hypoattenuation consistent with chronic small vessel isch emic disease. Cervical Spine CT 04/17/24 09:44 IMPRESSION: 1. Moderate to severe cervical and upper thoracic spondylosis. No acute osseous abnormality. Hip/Pelvis X-Ray 04/17/24 09:55 IMPRESSION: 1. Mildly displaced and angulated comminuted intertrochanteric fracture of the proximal left femur. Chest X-Ray 04/18/24 08:34 IMPRESSION: 1. Persistent mild patchy airspace opacities in the left lower lung zone which could represent atelectasis or pneumonia. Intraoperative X-Ray 04/18/24 15:16 IMPRESSION: 1. Near-anatomic alignment post open reduction internal fixation of a comminuted intratrochanteric fracture of the proximal left femur. See procedure note for further detail. Labs Labs: Laboratory Results - last 24 hr 04/20/24 06:03 WBC 9.9 RBC 2.88 L Hgb 8.6 L Hct 26.0 L MCV 90.3 MCH 29.9 MCHC 33.1 RDW 13.6 Plt Count 151 MPV 10.9 H Immature Gran % (Auto) 1.0 H Neut % (Auto) 78.8 H Lymph % (Auto) 8.5 L [place] % (Auto) 9.3 H Eos % (Auto) 2.0 Baso % (Auto) 0.4 Lymph # (Auto) 0.84 L [place] # (Auto) 0.9 H Eos # (Auto) 0.2 Baso # (Auto) 0.0 Abs Immat Gran (auto) 0.10 H Absolute Neuts (auto) 7.8 H Absolute Nucleated RBC 0.000 Nucleated RBC % 0.0 Sodium 138 Potassium 3.7 Chloride 107 Carbon Dioxide 28 Anion Gap 3 L BUN 10 Creatinine 0.60 L Estim Creat Clear Calc 85 Estimated GFR > 60 Glucose 113 H Calcium 9.0 Total Bilirubin 0.8 AST 35 ALT 24 Alkaline Phosphatase 67 Total Protein 6.0 L Albumin 3.1 L
[2024-04-20 21:52] VITALS: BP 138/40; PULSE 82; RESP 18; TEMP 37; O2SAT 93
[2024-04-21] MEDS: ACETAMINOPHEN 325 MG TABLET 650 MG PO ×5 (05:31→20:53)
[2024-04-21 06:00] VITALS: BP 137/40; PULSE 72; RESP 18; TEMP 36.6; O2SAT 96
[2024-04-21 07:32] LABS: Basophils Absolute Auto 0.1 K/mm3 (0.0-0.1); Basophils Percent Auto 0.6 % (0.2-1.2); Eosinophils Absolute Auto 0.3 K/mm3 (0-0.3); Eosinophils Percent Auto 4.1 % (0-4.4); Hematocrit 25.1 % (42.0-52.0); Hemoglobin 8.4 g/dL (14.0-18.0); Immature Granulocyte Absolute 0.12 K/mm3 (0.00-0.031); Immature Granulocyte Percent A 1.5 % (0-0.5); Lymphocytes Absolute Auto 1.19 K/mm3 (0.9-3.2); Lymphocytes Percent Auto 14.5 % (18.3-44.2); Mean Corpuscular HGB Conc 33.5 g/dl (32-36); Mean Corpuscular Hemoglobin 30.3 pg (26-34); Mean Corpuscular Volume 90.6 fl (80-100); Mean Platelet Volume 10.7 fl (7.4-10.4); Monocytes Absolute Auto 0.8 K/mm3 (0.1-0.6); Monocytes Percent Auto 9.1 % (2.6-8.5); Neutrophils Absolute Auto 5.8 K/mm3 (1.3-6.7); Neutrophils Percent Auto 70.2 % (45.5-73.1); Platelet Count Result 181 k/mm3 (150-375); Red Blood Count 2.77 M/mm3 (4.6-6.20); Red Cell Distribution Width 13.5 % (11.5-14.5); White Blood Count 8.2 K/mm3 (4.5-10.0)
[2024-04-21 08:00] LABS: Alanine Aminotransferase 27 U/L (6-50); Alkaline Phosphatase 63 U/L (38-126); Anion Gap 2 mmol/L (4-12); Aspartate Amino Transferase 36 U/L (17-59); Bilirubin,Total 0.9 mg/dL (0.2-1.3); Blood Urea Nitrogen 12 mg/dL (9-20); Calcium 8.9 mg/dL (8.4-10.2); Carbon Dioxide 29 mmol/L (22-30); Chloride 106 mmol/L (98-107); Estimated CRCL calculation 85 ml/min; Estimated Glomerular Filt Rate > 60; Glucose 119 mg/dL (65-110); Potassium 3.4 mmol/L (3.4-5.0); Sodium 137 mmol/L (137-145)
--- NOTE | 2024-04-21 08:38 | P.PNOP_ITS ---
Progress Note: A&P Assessment and Plan (1) Intertrochanteric fracture of left femur: Qualifiers: Encounter type: initial encounter Fracture type: closed Fracture alignment: displaced Qualified Code(s): S72.142A - Displaced intertrochanteric fracture of left femur, initial encounter for closed fracture Code(s): S72.142A - Displaced intertrochanteric fracture of left femur, initial encounter for closed fracture Status: Acute Assessment and Plan: Patient is postop day 3. After internal fixation of left intertrochanteric hip fracture. Hemoglobin is stable at 8.4. It was 8.6 yesterday. Platelets 840078. White count normal. BMP normal. Patient has [id number] swelling left thigh. The no significant swelling in the calf or ankle. His incisions remained dry and intact. I left orders that the patient be transferred to the chair today by Grace lift if he was unable to cooperate with physical therapy for transfers. Subjective Subjective Date/Time Seen: 04/21/24 08:38 Objective Data Vital Signs Vital Signs: Vital Signs - 24 hr 04/20/24 10:26 04/20/24 10:29 04/20/24 10:30 Temperature Pulse Rate 85 86 Respiratory Rate 16 Blood Pressure 143/54 H Pulse Oximetry 95 Oxygen Delivery Room Air 04/20/24 14:00 04/20/24 20:00 04/20/24 21:52 Temperature 36.6 C 37.0 C Pulse Rate 66 82 Respiratory Rate 17 18 Blood Pressure 128/52 L 138/40 L Pulse Oximetry 94 93 Oxygen Delivery Room Air 04/21/24 06:00 Temperature 36.6 C Pulse Rate 72 Respiratory Rate 18 Blood Pressure 137/40 L Pulse Oximetry 96 Oxygen Delivery Intake/Output Intake/Output: Intake & Output 04/18/24 04/19/24 04/20/24 04/21/24 23:59 23:59 23:59 23:59 Intake Total 450 1758.3 730 0 Output Total 500 200 Balance 450 1758.3 230 -200 Meds/Results Medications: Active Medications Generic Name Dose Route Start Last Admin Trade Name Freq PRN Reason Stop Dose Admin Acetaminophen 650 mg 04/18/24 17:00 04/21/24 05:31 Acetaminophen 325 Mg Tablet PO 650 mg Q4H ERNESTINE Administration Amlodipine Besylate 5 mg 04/18/24 09:00 04/20/24 10:28 Amlodipine Besylate 5 Mg Tablet PO 5 mg DAILY ERNESTINE Administration Apixaban 2.5 mg 04/19/24 09:00 04/20/24 21:01 Apixaban 2.5 Mg Tablet PO 2.5 mg Q12HR ERNESTINE Administration Aspirin 81 mg 04/19/24 08:00 04/20/24 10:28 Aspirin 81 Mg Chewable Tablet PO 81 mg DAILY@0800 ERNESTINE Administration Atorvastatin Calcium 20 mg 04/18/24 09:00 04/20/24 10:29 Atorvastatin 20 Mg Tablet PO 20 mg DAILY ERNESTINE Administration Azithromycin 500 mg 04/19/24 09:00 04/20/24 10:29 Azithromycin 250 Mg Tablet PO 04/21/24 09:01 500 mg DAILY ERNESTINE Administration Famotidine 20 mg 04/18/24 21:00 04/20/24 21:02 Famotidine 20 Mg Tablet PO 20 mg Q12HR ERNESTINE Administration Ceftriaxone Sodium 1 gm in 50 mls @ 100 mls/hr 04/18/24 09:00 04/20/24 10:59 Rocephin 1 Gm/Ns 50 Ml IVPB Infused Q24H ERNESTINE Infusion Memantine 10 mg 04/18/24 18:00 04/20/24 18:14 Memantine 10 Mg Tablet PO 10 mg QPM ERNESTINE Administration Metoprolol Tartrate 25 mg 04/18/24 21:00 04/20/24 21:01 Metoprolol Tartrate 25 Mg Tablet PO 25 mg Q12HR ERNESTINE Administration Naloxone HCl 0.1 mg 04/18/24 16:04 Naloxone Hcl 0.4 Mg/Ml Vial IV PUSH Q2M PRN Opiate Reversal Ondansetron HCl 4 mg 04/18/24 16:04 Ondansetron Inj 4 Mg/2 Ml Vial IV PUSH Q4H PRN Nausea And Vomiting Oxycodone HCl 2.5 mg 04/18/24 16:04 04/19/24 13:46 Oxycodone Hcl (*Crx) 2.5 Mg Tab Ir PO 2.5 mg Q4H PRN Administration Pain Rated 4-6 Polyethylene Glycol 17 gm 04/19/24 09:00 04/21/24 08:17 Polyethylene Glycol 3350 17 Gm Powd.Pack PO Not Given QAM ERNESTINE Senna/Docusate Sodium 2 tab 04/18/24 17:00 04/20/24 18:14 Senna/Docusate Sodium Tablet PO 2 tab BID ERNESTINE Administration Vitamin D 2,000 units 04/18/24 09:00 04/20/24 10:29 Cholecalciferol 1,000 Units Tablet PO 2,000 units DAILY ERNESTINE Administration Radiology Results: ITS Impressions Head CT 04/17/24 09:29 IMPRESSION: 1. No fracture or acute intracranial process. 2. 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 3. Age-related changes including moderate to severe diffuse volume loss and extensive white matter hypoattenuation consistent with chronic small vessel ischemic disease. Cervical Spine CT 04/17/24 09:44 IMPRESSION: 1. Moderate to severe cervical and upper thoracic spondylosis. No acute osseous abnormality. Hip/Pelvis X-Ray 04/17/24 09:55 IMPRESSION: 1. Mildly displaced and angulated comminuted intertrochanteric fracture of the proximal left femur. Chest X-Ray 04/18/24 08:34 IMPRESSION: 1. Persistent mild patchy airspace opacities in the left lower lung zone which could represent atelectasis or pneumonia. Intraoperative X-Ray 04/18/24 15:16 IMPRESSION: 1. Near-anatomic alignment post open reduction internal fixation of a comminuted intratrochanteric fracture of the proximal left femur. See procedure note for further detail. Labs Labs: Laboratory Results - last 24 hr 04/21/24 06:21 WBC 8.2 RBC 2.77 L Hgb 8.4 L Hct 25.1 L MCV 90.6 MCH 30.3 MCHC 33.5 RDW 13.5 Plt Count 181 MPV 10.7 H Immature Gran % (Auto) 1.5 H Neut % (Auto) 70.2 Lymph % (Auto) 14.5 L [place] % (Auto) 9.1 H Eos % (Auto) 4.1 Baso % (Auto) 0.6 Lymph # (Auto) 1.19 [place] # (Auto) 0.8 H Eos # (Auto) 0.3 Baso # (Auto) 0.1 Abs Immat Gran (auto) 0.12 H Absolute Neuts (auto) 5.8 Absolute Nucleated RBC 0.000 Nucleated RBC % 0.0 Sodium 137 Potassium 3.4 Chloride 106 Carbon Dioxide 29 Anion Gap 2 L BUN 12 Creatinine 0.60 L Estim Creat Clear Calc 85 Estimated GFR > 60 Glucose 119 H Calcium 8.9 Total Bilirubin 0.9 AST 36 ALT 27 Alkaline Phosphatase 63 Total Protein 6.0 L Albumin 3.0 L
[2024-04-21] MEDS: amLODIPine BESYLATE 5 MG TABLET PO (08:52)
[2024-04-21] MEDS: SENNA/DOCUSATE SODIUM TABLET 2 TAB PO (08:52)
[2024-04-21] MEDS: ATORVASTATIN 20 MG TABLET PO (08:52)
[2024-04-21] MEDS: CHOLECALCIFEROL 1,000 UNITS TABLET 2000 UNITS PO (08:52)
[2024-04-21] MEDS: AZITHROMYCIN 250 MG TABLET 500 MG PO (08:52)
[2024-04-21] MEDS: METOPROLOL TARTRATE 25 MG TABLET PO ×2 (08:52→20:53)
[2024-04-21] MEDS: ASPIRIN 81 MG CHEWABLE TABLET PO (08:52)
[2024-04-21] MEDS: APIXABAN 2.5 MG TABLET PO ×2 (08:52→20:53)
[2024-04-21] MEDS: FAMOTIDINE 20 MG TABLET PO ×2 (08:52→20:53)
--- NOTE | 2024-04-21 09:21 | P.PNIM_ITS ---
Progress Note: A&P Assessment and Plan (1) Fall: Code(s): W19.XXXA - Unspecified fall, initial encounter Status: Acute Assessment and Plan: patient sustained a ground level fall on to his left hip * head CT was negative for any acute fracture or intracranial process, showed old lacunar infarct in the right basal ganglia, age-related changes including moderate to severe diffuse volume loss and extensive white matter hypoattenuation consistent with chronic small-vessel ischemic disease. * Cervical spine x-ray showed moderate to severe cervical and upper thoracic spondylosis, no acute osseous abnormality * hip and pelvis x-ray shown mildly displaced and angulated comminuted intratrochanteric fracture of the proximal left femur * S/P ORIF left intertrochanteric hip fracture, post op day 3 * continue fall precautions * Continue PT and OT * Case coordination following for discharge rehab needs (2) Hip fracture: Code(s): S72.009A - Fracture of unspecified part of neck of unspecified femur, initial encounter for closed fracture Status: Acute Assessment and Plan: Status post ORIF on 04/18/2024 * hip and pelvis x-ray shown mildly displaced and angulated comminuted intratrochanteric fracture of the proximal left femur * continue pain control * continue hip precautions * Orthopedic surgery following * medically stable from our perspective other than his sick sinus syndrome however does have a pacemaker in place * Case coordination consulted for outpatient rehab needs * continue pain and nausea control * Weightbear as tolerated on left lower leg * PT and OT evaluate and treat (3) Pneumonia: Code(s): J18.9 - Pneumonia, unspecified organism Status: Acute Assessment and Plan: * chest x-ray showing mild opacities with bronchial wall thickening in the left lower lung zone representing pneumonia, cardiomegaly * Continue Azithromycin and Rocephin x5 days total * blood cultures no growth to date Leukocytosis resolved * procalcitonin 0.0 * MRSA negative (4) Dementia: Code(s): F03.90 - Unspecified dementia, unspecified severity, without behavioral disturbance, psychotic disturbance, mood disturbance, and anxiety Status: Chronic Assessment and Plan: * continue Namenda (5) Hyperlipidemia: Code(s): E78.5 - Hyperlipidemia, unspecified Status: Chronic Assessment and Plan: * continue aspirin and atorvastatin (6) Hypertension: Code(s): I10 - Essential (primary) hypertension Status: Chronic Assessment and Plan: * blood pressure ranging 137/40-162/44 * continue amlodipine and lisinopril (7) Acute blood loss anemia: Code(s): D62 - Acute posthemorrhagic anemia Status: Acute Assessment and Plan: * Anemia of chronic disease at baseline * Hgb 8.4 * No acute bleeding at this time * Continue Eliquis Time Spent With Patient Time with patient: Greater than 35 minutes Subjective Date/time seen: 04/21/24 09:21 Interval history: Interval history: This is an 84-year-old male with a significant past medical history severe Alzheimer's dementia, Anxiety, sick sinus syndrome status post pacemaker, BPH, hypertension, hyperlipidemia, TIA, hard of hearing, vitamin-D deficiency who presented to the hospital for evaluation after a ground level fall landing on his left hip. Patient is not a good historian and most of presenting illness was obtained from the medical record. Patient was found down on the ground after sustaining a fall. The fall was unwitnessed. He immediately started having pain in his left hip and was brought to the hospital for further investigation. 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 Chest x-ray showed mild opacities with bronchial wall thickening in the left lower lung zone, cardiomegaly. Cervical spine CT showed moderate to severe cervical and upper thoracic spondylosis, no acute osseous abnormality. Hip and pelvis x-ray showed mildly displaced and angulated comminuted intratrochanteric fracture of the proximal left femur. Initial labs showed a white blood cell count of 15.0, hemoglobin 12.3, INR 1.0, chloride 109, creatinine 0.60. A UA was obtained which showed a cloudy in appearance however was unremarkable. Blood cultures were obtained and are pending. EKG shown a flutter with variable block, rate of 89, QTC 426. Patient was given 1 L of normal saline, dilaudid, Rocephin and azithromycin while in the ED. orthopedic surgery was consulted. Subjective: Patient minimally interactive. Alert and oriented x1-2. Family at bedside and patient was transferred to a chair with PT, nano lift behind him. He was noted to stand for a small amount of time today and then repositioned in the chair. Labs reviewed. Review of Systems Review of Systems: ROS unobtainable: Yes unobtainable due to mental status Exam Narrative: General: In no acute distress, well nourished Cardiac: Normal S1 and S2. No murmur, gallops or friction rubs, peripheral pu lses intact. Respiratory: Lungs clear to auscultation, no adventitious lung sounds, currently on room air Gastrointestinal: soft, non-distended, non-tender, normoactive bowel sounds. : voiding without difficulty. Pure wick in place Extremities:limited ROM in LLE Skin: OR dressing to left hip Neuro: Alert and oriented x1-2, and confused Objective Data Vital Signs Vital Signs: Vital Signs - 24 hr 04/20/24 10:26 04/20/24 10:29 04/20/24 10:30 Temperature Pulse Rate 85 86 Respiratory Rate 16 Blood Pressure 143/54 H Pulse Oximetry 95 Oxygen Delivery Room Air 04/20/24 14:00 04/20/24 20:00 04/20/24 21:52 Temperature 97.8 F 98.6 F Pulse Rate 66 82 Respiratory Rate 17 18 Blood Pressure 128/52 L 138/40 L Pulse Oximetry 94 93 Oxygen Delivery Room Air 04/21/24 06:00 Temperature 97.9 F Pulse Rate 72 Respiratory Rate 18 Blood Pressure 137/40 L Pulse Oximetry 96 Oxygen Delivery Intake/Output Intake/Output: Intake & Output 04/18/24 04/19/24 04/20/24 04/21/24 23:59 23:59 23:59 23:59 Intake Total 450 1758.3 730 0 Output Total 500 200 Balance 450 1758.3 230 -200 Meds/Results Medications: Active Medications Generic Name Dose Route Start Last Admin Trade Name Freq PRN Reason Stop Dose Admin Acetaminophen 650 mg 04/18/24 17:00 04/21/24 08:52 Acetaminophen 325 Mg Tablet PO 650 mg Q4H ERNESTINE Administration Amlodipine Besylate 5 mg 04/18/24 09:00 04/21/24 08:52 Amlodipine Besylate 5 Mg Tablet PO 5 mg DAILY ERNESTINE Administration Apixaban 2.5 mg 04/19/24 09:00 04/21/24 08:52 Apixaban 2.5 Mg Tablet PO 2.5 mg Q12HR ERNESTINE Administration Aspirin 81 mg 04/19/24 08:00 04/21/24 08:52 Aspirin 81 Mg Chewable Tablet PO 81 mg DAILY@0800 ERNESTINE Administration Atorvastatin Calcium 20 mg 04/18/24 09:00 04/21/24 08:52 Atorvastatin 20 Mg Tablet PO 20 mg DAILY ERNESTINE Administration Famotidine 20 mg 04/18/24 21:00 04/21/24 08:52 Famotidine 20 Mg Tablet PO 20 mg Q12HR ERNESTINE Administration Ceftriaxone Sodium 1 gm in 50 mls @ 100 mls/hr 04/18/24 09:00 04/20/24 10:59 Rocephin 1 Gm/Ns 50 Ml IVPB Infused Q24H ERNESTINE Infusion Memantine 10 mg 04/18/24 18:00 04/20/24 18:14 Memantine 10 Mg Tablet PO 10 mg QPM ERNESTINE Administration Metoprolol Tartrate 25 mg 04/18/24 21:00 04/21/24 08:52 Metoprolol Tartrate 25 Mg Tablet PO 25 mg Q12HR ERNESTINE Administration Naloxone HCl 0.1 mg 04/18/24 16:04 Naloxone Hcl 0.4 Mg/Ml Vial IV PUSH Q2M PRN Opiate Reversal Ondansetron HCl 4 mg 04/18/24 16:04 Ondansetron Inj 4 Mg/2 Ml Vial IV PUSH Q4H PRN Nausea And Vomiting Oxycodone HCl 2.5 mg 04/18/24 16:04 04/19/24 13:46 Oxycodone Hcl (*Crx) 2.5 Mg Tab Ir PO 2.5 mg Q4H PRN Administration Pain Rated 4-6 Polyethylene Glycol 17 gm 04/19/24 09:00 04/21/24 08:17 Polyethylene Glycol 3350 17 Gm Powd.Pack PO Not Given QAM [facility] Senna/Docusate Sodium 2 tab 04/18/24 17:00 04/21/24 08:52 Senna/Docusate Sodium Tablet PO 2 tab BID ERNESTINE Administration Vitamin D 2,000 units 04/18/24 09:00 04/21/24 08:52 Cholecalciferol 1,000 Units Tablet PO 2,000 units DAILY ERNESTINE Administration Radiology Results: ITS Impressions Head CT 04/17/24 09:29 IMPRESSION: 1. No fracture or acute intracranial process. 2. 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 3. Age-related changes including moderate to severe diffuse volume loss and extensive white matter hypoattenuation consistent with chronic small vessel ischemic disease. Cervical Spine CT 04/17/24 09:44 IMPRESSION: 1. Moderate to severe cervical and upper thoracic spondylosis. No acute osseous abnormality. Hip/Pelvis X-Ray 04/17/24 09:55 IMPRESSION: 1. Mildly displaced and angulated comminuted intertrochanteric fracture of the proximal left femur. Chest X-Ray 04/18/24 08:34 IMPRESSION: 1. Persistent mild patchy airspace opacities in the left lower lung zone which could represent atelectasis or pneumonia. Intraoperative X-Ray 04/18/24 15:16 IMPRESSION: 1. Near-anatomic alignment post open reduction internal fixation of a comminuted intratrochanteric fracture of the proximal left femur. See procedure note for further detail. Labs Labs: Laboratory Results - last 24 hr 04/21/24 06:21 WBC 8.2 RBC 2.77 L Hgb 8.4 L Hct 25.1 L MCV 90.6 MCH 30.3 MCHC 33.5 RDW 13.5 Plt Count 181 MPV 10.7 H Immature Gran % (Auto) 1.5 H Neut % (Auto) 70.2 Lymph % (Auto) 14.5 L [place] % (Auto) 9.1 H Eos % (Auto) 4.1 Baso % (Auto) 0.6 Lymph # (Auto) 1.19 [place] # (Auto) 0.8 H Eos # (Auto) 0.3 Baso # (Auto) 0.1 Abs Immat Gran (auto) 0.12 H Absolute Neuts (auto) 5.8 Absolute Nucleated RBC 0.000 Nucleated RBC % 0.0 Sodium 137 Potassium 3.4 Chloride 106 Carbon Dioxide 29 Anion Gap 2 L BUN 12 Creatinine 0.60 L Estim Creat Clear Calc 85 Estimated GFR > 60 Glucose 119 H Calcium 8.9 Total Bilirubin 0.9 AST 36 ALT 27 Alkaline Phosphatase 63 Total Protein 6.0 L Albumin 3.0 L Quality VTE Prophylaxis VTE prophylaxis: mechanical ordered and pharmacologic ordered
[2024-04-21 14:00] VITALS: BP 117/48; PULSE 76; RESP 18; TEMP 36.6; O2SAT 95
[2024-04-21] MEDS: MEMANTINE 10 MG TABLET PO (18:26)
[2024-04-21 20:53] VITALS: PULSE 76
[2024-04-21] MEDS: oxyCODONE HCL (*CRX) 2.5 MG TAB IR PO (20:54)
[2024-04-21 22:00] VITALS: BP 141/48; PULSE 86; RESP 18; TEMP 36.5; O2SAT 94
[2024-04-22 06:00] VITALS: BP 155/56; PULSE 74; RESP 20; TEMP 36.7; O2SAT 97
[2024-04-22 06:37] LABS: Basophils Percent Auto 0.4 % (0.2-1.2); Eosinophils Absolute Auto 0.2 K/mm3 (0-0.3); Eosinophils Percent Auto 1.8 % (0-4.4); Hematocrit 27.5 % (42.0-52.0); Hemoglobin 9.1 g/dL (14.0-18.0); Immature Granulocyte Absolute 0.14 K/mm3 (0.00-0.031); Immature Granulocyte Percent A 1.5 % (0-0.5); Lymphocytes Absolute Auto 1.04 K/mm3 (0.9-3.2); Lymphocytes Percent Auto 10.8 % (18.3-44.2); Mean Corpuscular HGB Conc 33.1 g/dl (32-36); Mean Corpuscular Hemoglobin 29.8 pg (26-34); Mean Corpuscular Volume 90.2 fl (80-100); Mean Platelet Volume 10.1 fl (7.4-10.4); Monocytes Absolute Auto 0.9 K/mm3 (0.1-0.6); Monocytes Percent Auto 9.1 % (2.6-8.5); Neutrophils Absolute Auto 7.4 K/mm3 (1.3-6.7); Neutrophils Percent Auto 76.4 % (45.5-73.1); Platelet Count Result 235 k/mm3 (150-375); Red Blood Count 3.05 M/mm3 (4.6-6.20); Red Cell Distribution Width 13.7 % (11.5-14.5); White Blood Count 9.7 K/mm3 (4.5-10.0)
[2024-04-22] MEDS: ACETAMINOPHEN 325 MG TABLET 650 MG PO ×5 (06:37→20:37)
[2024-04-22 06:52] LABS: Alanine Aminotransferase 29 U/L (6-50); Albumin Level 3.5 g/dL (3.5-5.1); Alkaline Phosphatase 70 U/L (38-126); Anion Gap 7 mmol/L (4-12); Aspartate Amino Transferase 36 U/L (17-59); Bilirubin,Total 1.5 mg/dL (0.2-1.3); Blood Urea Nitrogen 10 mg/dL (9-20); Calcium 9.3 mg/dL (8.4-10.2); Carbon Dioxide 26 mmol/L (22-30); Chloride 108 mmol/L (98-107); Estimated CRCL calculation 101 ml/min; Estimated Glomerular Filt Rate > 60; Glucose 121 mg/dL (65-110); Potassium 3.3 mmol/L (3.4-5.0); Sodium 141 mmol/L (137-145)
[2024-04-22] MEDS: ATORVASTATIN 20 MG TABLET PO (09:48)
[2024-04-22] MEDS: POTASSIUM CHLORIDE 20 MEQ ER TABLET 40 MEQ PO (09:48)
[2024-04-22 09:49] VITALS: PULSE 74
[2024-04-22] MEDS: CHOLECALCIFEROL 1,000 UNITS TABLET 2000 UNITS PO (09:49)
[2024-04-22] MEDS: APIXABAN 2.5 MG TABLET PO ×2 (09:49→20:37)
[2024-04-22] MEDS: FAMOTIDINE 20 MG TABLET PO ×2 (09:49→20:37)
[2024-04-22] MEDS: amLODIPine BESYLATE 5 MG TABLET PO (09:49)
[2024-04-22] MEDS: METOPROLOL TARTRATE 25 MG TABLET PO ×2 (09:49→20:37)
[2024-04-22] MEDS: ASPIRIN 81 MG CHEWABLE TABLET PO (09:49)
--- NOTE | 2024-04-22 10:59 | P.PNIM_ITS ---
Progress Note: A&P Assessment and Plan (1) Fall: Code(s): W19.XXXA - Unspecified fall, initial encounter Status: Acute Assessment and Plan: patient sustained a ground level fall on to his left hip * head CT was negative for any acute fracture or intracranial process, showed old lacunar infarct in the right basal ganglia, age-related changes including moderate to severe diffuse volume loss and extensive white matter hypoattenuation consistent with chronic small-vessel ischemic disease. * Cervical spine x-ray showed moderate to severe cervical and upper thoracic spondylosis, no acute osseous abnormality * hip and pelvis x-ray shown mildly displaced and angulated comminuted intratrochanteric fracture of the proximal left femur * S/P ORIF left intertrochanteric hip fracture, post op day 4 * continue fall precautions * Continue PT and OT * Case coordination following for discharge rehab needs (2) Hip fracture: Code(s): S72.009A - Fracture of unspecified part of neck of unspecified femur, initial encounter for closed fracture Status: Acute Assessment and Plan: Status post ORIF on 04/18/2024 * hip and pelvis x-ray shown mildly displaced and angulated comminuted intratrochanteric fracture of the proximal left femur * continue pain control * continue hip precautions * Orthopedic surgery following * Case coordination following and working on Authorization for SNF * continue pain and nausea control * Weightbear as tolerated on left lower leg * PT and OT evaluate and treat (3) Pneumonia: Code(s): J18.9 - Pneumonia, unspecified organism Status: Acute Assessment and Plan: * chest x-ray showing mild opacities with bronchial wall thickening in the left lower lung zone representing pneumonia, cardiomegaly * Antibiotics discontinued * blood cultures no growth to date * Leukocytosis resolved * procalcitonin 0.0 * MRSA negative (4) Dementia: Code(s): F03.90 - Unspecified dementia, unspecified severity, without behavioral disturbance, psychotic disturbance, mood disturbance, and anxiety Status: Chronic Assessment and Plan: * continue Namenda (5) Hyperlipidemia: Code(s): E78.5 - Hyperlipidemia, unspecified Status: Chronic Assessment and Plan: * continue aspirin and atorvastatin (6) Hypertension: Code(s): I10 - Essential (primary) hypertension Status: Chronic Assessment and Plan: * blood pressure ranging 117/48 to 155/56 * continue amlodipine and lisinopril (7) Acute blood loss anemia: Code(s): D62 - Acute posthemorrhagic anemia Status: Acute Assessment and Plan: * Anemia of chronic disease at baseline * Hgb 9.1 * No acute bleeding at this time * Continue Eliquis Time Spent With Patient Time with patient: 15 - 25 minutes Subjective Date/time seen: 04/22/24 10:59 Interval history: Interval history: This is an 84-year-old male with a significant past medical history severe Alzheimer's dementia, Anxiety, sick sinus syndrome status post pacemaker, BPH, hypertension, hyperlipidemia, TIA, hard of hearing, vitamin-D deficiency who presented to the hospital for evaluation after a ground level fall landing on his left hip. Patient is not a good historian and most of presenting illness was obtained from the medical record. Patient was found down on the ground after sustaining a fall. The fall was unwitnessed. He immediately started having pain in his left hip and was brought to the hospital for further investigation. 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 Chest x-ray showed mild opacities with bronchial wall thickening in the left lower lung zone, cardiomegaly. Cervical spine CT showed moderate to severe cervical and upper thoracic spondylosis, no acute osseous abnormality. Hip and pelvis x-ray showed mildly displaced and angulated comminuted intratrochanteric fracture of the proximal left femur. Initial labs showed a white blood cell count of 15.0, hemoglobin 12.3, INR 1.0, chloride 109, creatinine 0.60. A UA was obtained which showed a cloudy in appearance however was unremarkable. Blood cultures were obtained and are pending. EKG shown a flutter with variable block, rate of 89, QTC 426. Patient was given 1 L of normal saline, dilaudid, Rocephin and azithromycin while in the ED. orthopedic surgery was consulted. Subjective: Patient interactive today and answers my question appropriately. He continues to work with therapy and did another stand and pivot to the chair today. He denies any new complaints today. Labs reviewed. Review of Systems Review of Systems: All systems reviewed & are unremarkable except as noted in HPI and below Constitutional: Constitutional: Reports as per HPI and Reports no additional constitutional complaints Eyes: Eyes: Reports as per HPI and Reports no additional eye complaints ENT: Reports system reviewed and no additional complaints, except as documented and Reports as per HPI Cardiovascular: Cardiovascular: Reports as per HPI and Reports no additional cardiovascular complaints Respiratory: Respiratory: Reports as per HPI and Reports no additional respiratory complaints Gastrointestinal: Gastrointestinal: Reports as per HPI and Reports no additional gastrointestinal complaints Genitourinary: Genitourinary: Reports no additional male genitourinary complaints and Reports as per HPI Musculoskeletal: Musculoskeletal: Reports no additional musculoskeletal complaints and Reports as per HPI Integumentary/Breasts: Skin/Breast: Reports system reviewed and no additional complaints, except as docu and Reports as per HPI Neurologic: Reports system reviewed and no additional complaints, except as documented and Reports as per HPI Psychiatric: Psychiatric: Reports no additional psychiatric complaints and Reports as per HPI Exam Narrative: General: In no acute distress, well nourished Cardiac: Normal S1 and S2. No murmur, gallops or friction rubs, peripheral pulses intact. Respiratory: Lungs clear to auscultation, no adventitious lung sounds, currently on room air Gastrointestinal: soft, non-distended, non-tender, normoactive bowel sounds. : voiding without difficulty. Pure wick in place Extremities:limited ROM and weakness in LLE Skin: surgical incisions to left hip Neuro: Alert and oriented x1-2, confused, answering questions today Objective Data Vital Signs Vital Signs: Vital Signs - 24 hr 04/21/24 14:00 04/21/24 20:53 04/21/24 22:00 Temperature 97.8 F 97.7 F Pulse Rate 76 76 86 Respiratory Rate 18 18 Blood Pressure 117/48 L 141/48 H Pulse Oximetry 95 94 Oxygen Delivery 04/21/24 20:00 04/22/24 06:00 04/22/24 09:49 Temperature 98.0 F Pulse Rate 74 74 Respiratory Rate 20 Blood Pressure 155/56 H Pulse Oximetry 97 Oxygen Delivery Room Air 04/22/24 08:15 Temperature Pulse Rate Respiratory Rate Blood Pressure Pulse Oximetry Oxygen Delivery Room Air Intake/Output Intake/Output: Intake & Output 04/19/24 04/20/24 04/21/24 04/22/24 23:59 23:59 23:59 23:59 Intake Total 1758.3 730 480 200 Output Total 500 900 900 Balance 1758.3 230 -982 -309 Meds/Results Medications: Active Medications Generic Name Dose Route Start Last Admin Trade Name Fremanasa PRN Reason Stop Dose Admin Acetaminophen 650 mg 04/18/24 17:00 04/22/24 09:49 Acetaminophen 325 Mg Tablet PO 650 mg Q4H ERNESTINE Administration Amlodipine Besylate 5 mg 04/18/24 09:00 04/22/24 09:49 Amlodipine Besylate 5 Mg Tablet PO 5 mg DAILY ERNESTINE Administration Apixaban 2.5 mg 04/19/24 09:00 04/22/24 09:49 Apixaban 2.5 Mg Tablet PO 2.5 mg Q12HR ERNESTINE Administration Aspirin 81 mg 04/19/24 08:00 04/22/24 09:49 Aspirin 81 Mg Chewable Tablet PO 81 mg DAILY@0800 ERNESTINE Administration Atorvastatin Calcium 20 mg 04/18/24 09:00 04/22/24 09:48 Atorvastatin 20 Mg Tablet PO 20 mg DAILY ERNESTINE Administration Famotidine 20 mg 04/18/24 21:00 04/22/24 09:49 Famotidine 20 Mg Tablet PO 20 mg Q12HR ERNESTINE Administration Memantine 10 mg 04/18/24 18:00 04/21/24 18:26 Memantine 10 Mg Tablet PO 10 mg QPM ERNESTINE Administration Metoprolol Tartrate 25 mg 04/18/24 21:00 04/22/24 09:49 Metoprolol Tartrate 25 Mg Tablet PO 25 mg Q12HR ERNESTINE Administration Naloxone HCl 0.1 mg 04/18/24 16:04 Naloxone Hcl 0.4 Mg/Ml Vial IV PUSH Q2M PRN Opiate Reversal Ondansetron HCl 4 mg 04/18/24 16:04 Ondansetron Inj 4 Mg/2 Ml Vial IV PUSH Q4H PRN Nausea And Vomiting Oxycodone HCl 2.5 mg 04/18/24 16:04 04/21/24 20:54 Oxycodone Hcl (*Crx) 2.5 Mg Tab Ir PO 2.5 mg Q4H PRN Administration Pain Rated 4-6 Polyethylene Glycol 17 gm 04/19/24 09:00 04/22/24 09:53 Polyethylene Glycol 3350 17 Gm Powd.Pack PO Not Given QAM ERNESTINE Senna/Docusate Sodium 2 tab 04/18/24 17:00 04/22/24 09:53 Senna/Docusate Sodium Tablet PO Not Given BID [facility] Vitamin D 2,000 units 04/18/24 09:00 04/22/24 09:49 Cholecalciferol 1,000 Units Tablet PO 2,000 units DAILY ERNESTINE Administration Radiology Results: ITS Impressions Head CT 04/17/24 09:29 IMPRESSION: 1. No fracture or acute intracranial process. 2. 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 3. Age-related changes including moderate to severe diffuse volume loss and extensive white matter hypoattenuation consistent with chronic small vessel ischemic disease. Cervical Spine CT 04/17/24 09:44 IMPRESSION: 1. Moderate to severe cervical and upper thoracic spondylosis. No acute osseous abnormality. Hip/Pelvis X-Ray 04/17/24 09:55 IMPRESSION: 1. Mildly displaced and angulated comminuted intertrochanteric fracture of the proximal left femur. Chest X-Ray 04/18/24 08:34 IMPRESSION: 1. Persistent mild patchy airspace opacities in the left lower lung zone which could represent atelectasis or pneumonia. Intraoperative X-Ray 04/18/24 15:16 IMPRESSION: 1. Near-anatomic alignment post open reduction internal fixation of a comminuted intratrochanteric fracture of the proximal left femur. See procedure note for further detail. Labs Labs: Laboratory Results - last 24 hr 04/22/24 06:27 WBC 9.7 RBC 3.05 L Hgb 9.1 L Hct 27.5 L MCV 90.2 MCH 29.8 MCHC 33.1 RDW 13.7 Plt Count 235 MPV 10.1 Immature Gran % (Auto) 1.5 H Neut % (Auto) 76.4 H Lymph % (Auto) 10.8 L [place] % (Auto) 9.1 H Eos % (Auto) 1.8 Baso % (Auto) 0.4 Lymph # (Auto) 1.04 [place] # (Auto) 0.9 H Eos # (Auto) 0.2 Baso # (Auto) 0.0 Abs Immat Gran (auto) 0.14 H Absolute Neuts (auto) 7.4 H Absolute Nucleated RBC 0.000 Nucleated RBC % 0.0 Sodium 141 Potassium 3.3 L Chloride 108 H Carbon Dioxide 26 Anion Gap 7 BUN 10 Creatinine 0.50 L Estim Creat Clear Calc 101 Estimated GFR > 60 Glucose 121 H Calcium 9.3 Total Bilirubin 1.5 H AST 36 ALT 29 Alkaline Phosphatase 70 Total Protein 7.0 Albumin 3.5 Quality VTE Prophylaxis VTE prophylaxis: mechanical ordered and pharmacologic ordered
--- NOTE | 2024-04-22 11:16 | PM.PNORT ---
Progress Note: A&P Assessment and Plan (1) Intertrochanteric fracture of left femur: Qualifiers: Encounter type: initial encounter Fracture type: closed Fracture alignment: displaced Qualified Code(s): S72.142A - Displaced intertrochanteric fracture of left femur, initial encounter for closed fracture Code(s): S72.142A - Displaced intertrochanteric fracture of left femur, initial encounter for closed fracture Status: Acute Assessment and Plan: Patient is postop day number 4 after internal fixation left intertrochanteric hip fracture. Yesterday afternoon and this morning both times therapy could help him stand up and he could remain standing with max assist of 2. However he is unable to as he cannot follow instructions due to his severe dementia. As such, the Grace lift has been used to lift him from the bed to place him in the chair and likewise then to lift him from the bed. He is in the chair right now. He is cheerful he is quite alert and responds appropriately but he is pleasantly confused. There is no drainage showing up on the dressings. His hemoglobin is higher today at 9.1 up from 8.4 yesterday. I think his hemoglobin reached the today. Potassium was a little bit low today at 3.3. 0.5. From my standpoint I feel that he is stable for discharge to the senior care. I have indicated the physical therapy orders on the discharge summary. Subjective Subjective Date/Time Seen: 04/22/24 11:16 Objective Data Vital Signs Vital Signs: Vital Signs - 24 hr 04/21/24 14:00 04/21/24 20:53 04/21/24 22:00 Temperature 36.6 C 36.5 C Pulse Rate 76 76 86 Respiratory Rate 18 18 Blood Pressure 117/48 L 141/48 H Pulse Oximetry 95 94 Oxygen Delivery 04/21/24 20:00 04/22/24 06:00 04/22/24 09:49 Temperature 36.7 C Pulse Rate 74 74 Respiratory Rate 20 Blood Pressure 155/56 H Pulse Oximetry 97 Oxygen Delivery Room Air 04/22/24 08:15 Temperature Pulse Rate Respiratory Rate Blood Pressure Pulse Oximetry Oxygen Delivery Room Air Intake/Output Intake/Output: Intake & Output 04/19/24 04/20/24 04/21/24 04/22/24 23:59 23:59 23:59 23:59 Intake Total 1758.3 730 480 200 Output Total 500 900 900 Balance 1758.3 183 -872 -855 Meds/Results Medications: Active Medications Generic Name Dose Route Start Last Admin Trade Name Neo PRN Reason Stop Dose Admin Acetaminophen 650 mg 04/18/24 17:00 04/22/24 09:49 Acetaminophen 325 Mg Tablet PO 650 mg Q4H ERNESTINE Administration Amlodipine Besylate 5 mg 04/18/24 09:00 04/22/24 09:49 Amlodipine Besylate 5 Mg Tablet PO 5 mg DAILY ERNESTINE Administration Apixaban 2.5 mg 04/19/24 09:00 04/22/24 09:49 Apixaban 2.5 Mg Tablet PO 2.5 mg Q12HR ERNESTINE Administration Aspirin 81 mg 04/19/24 08:00 04/22/24 09:49 Aspirin 81 Mg Chewable Tablet PO 81 mg DAILY@0800 ERNESTINE Administration Atorvastatin Calcium 20 mg 04/18/24 09:00 04/22/24 09:48 Atorvastatin 20 Mg Tablet PO 20 mg DAILY ERNESTINE Administration Famotidine 20 mg 04/18/24 21:00 04/22/24 09:49 Famotidine 20 Mg Tablet PO 20 mg Q12HR ERNESTINE Administration Memantine 10 mg 04/18/24 18:00 04/21/24 18:26 Memantine 10 Mg Tablet PO 10 mg QPM ERNESTINE Administration Metoprolol Tartrate 25 mg 04/18/24 21:00 04/22/24 09:49 Metoprolol Tartrate 25 Mg Tablet PO 25 mg Q12HR ERNESTINE Administration Naloxone HCl 0.1 mg 04/18/24 16:04 Naloxone Hcl 0.4 Mg/Ml Vial IV PUSH Q2M PRN Opiate Reversal Ondansetron HCl 4 mg 04/18/24 16:04 Ondansetron Inj 4 Mg/2 Ml Vial IV PUSH Q4H PRN Nausea And Vomiting Oxycodone HCl 2.5 mg 04/18/24 16:04 04/21/24 20:54 Oxycodone Hcl (*Crx) 2.5 Mg Tab Ir PO 2.5 mg Q4H PRN Administration Pain Rated 4-6 Polyethylene Glycol 17 gm 04/19/24 09:00 04/22/24 09:53 Polyethylene Glycol 3350 17 Gm Powd.Pack PO Not Given QAM ERNESTINE Senna/Docusate Sodium 2 tab 04/18/24 17:00 04/22/24 09:53 Senna/Docusate Sodium Tablet PO Not Given BID [facility] Vitamin D 2,000 units 04/18/24 09:00 04/22/24 09:49 Cholecalciferol 1,000 Units Tablet PO 2,000 units DAILY ERNESTINE Administration Radiology Results: ITS Impressions Head CT 04/17/24 09:29 IMPRESSION: 1. No fracture or acute intracranial process. 2. 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 3. Age-related changes including moderate to severe diffuse volume loss and extensive white matter hypoattenuation consistent with chronic small vessel ischemic disease. Cervical Spine CT 04/17/24 09:44 IMPRESSION: 1. Moderate to severe cervical and upper thoracic spondylosis. No acute osseous abnormality. Hip/Pelvis X-Ray 04/17/24 09:55 IMPRESSION: 1. Mildly displaced and angulated comminuted intertrochanteric fracture of the proximal left femur. Chest X-Ray 04/18/24 08:34 IMPRESSION: 1. Persistent mild patchy airspace opacities in the left lower lung zone which could represent atelectasis or pneumonia. Intraoperative X-Ray 04/18/24 15:16 IMPRESSION: 1. Near-anatomic alignment post open reduction internal fixation of a comminuted intratrochanteric fracture of the proximal left femur. See procedure note for further detail. Labs Labs: Laboratory Results - last 24 hr 04/22/24 06:27 WBC 9.7 RBC 3.05 L Hgb 9.1 L Hct 27.5 L MCV 90.2 MCH 29.8 MCHC 33.1 RDW 13.7 Plt Count 235 MPV 10.1 Immature Gran % (Auto) 1.5 H Neut % (Auto) 76.4 H Lymph % (Auto) 10.8 L [place] % (Auto) 9.1 H Eos % (Auto) 1.8 Baso % (Auto) 0.4 Lymph # (Auto) 1.04 [place] # (Auto) 0.9 H Eos # (Auto) 0.2 Baso # (Auto) 0.0 Abs Immat Gran (auto) 0.14 H Absolute Neuts (auto) 7.4 H Absolute Nucleated RBC 0.000 Nucleated RBC % 0.0 Sodium 141 Potassium 3.3 L Chloride 108 H Carbon Dioxide 26 Anion Gap 7 BUN 10 Creatinine 0.50 L Estim Creat Clear Calc 101 Estimated GFR > 60 Glucose 121 H Calcium 9.3 Total Bilirubin 1.5 H AST 36 ALT 29 Alkaline Phosphatase 70 Total Protein 7.0 Albumin 3.5
[2024-04-22 14:00] VITALS: BP 150/60; PULSE 80; RESP 20; TEMP 37; O2SAT 93
[2024-04-22] MEDS: MEMANTINE 10 MG TABLET PO (18:38)
[2024-04-22] MEDS: SENNA/DOCUSATE SODIUM TABLET 2 TAB PO (18:38)
[2024-04-22 20:37] VITALS: PULSE 75
[2024-04-22 22:00] VITALS: BP 158/41; PULSE 71; RESP 18; TEMP 36.5; O2SAT 97
[2024-04-23 06:00] VITALS: BP 145/67; PULSE 85; RESP 18; TEMP 36.7; O2SAT 93
[2024-04-23] MEDS: ACETAMINOPHEN 325 MG TABLET 650 MG PO ×3 (06:29→12:34)
[2024-04-23 07:01] LABS: Basophils Absolute Auto 0.1 K/mm3 (0.0-0.1); Basophils Percent Auto 0.8 % (0.2-1.2); Eosinophils Absolute Auto 0.2 K/mm3 (0-0.3); Eosinophils Percent Auto 2.5 % (0-4.4); Hematocrit 25.7 % (42.0-52.0); Hemoglobin 8.6 g/dL (14.0-18.0); Immature Granulocyte Absolute 0.09 K/mm3 (0.00-0.031); Immature Granulocyte Percent A 1.1 % (0-0.5); Lymphocytes Absolute Auto 1.13 K/mm3 (0.9-3.2); Lymphocytes Percent Auto 14.4 % (18.3-44.2); Mean Corpuscular HGB Conc 33.5 g/dl (32-36); Mean Corpuscular Hemoglobin 30.2 pg (26-34); Mean Corpuscular Volume 90.2 fl (80-100); Mean Platelet Volume 10.1 fl (7.4-10.4); Monocytes Absolute Auto 0.8 K/mm3 (0.1-0.6); Monocytes Percent Auto 9.9 % (2.6-8.5); Neutrophils Absolute Auto 5.6 K/mm3 (1.3-6.7); Neutrophils Percent Auto 71.3 % (45.5-73.1); Platelet Count Result 256 k/mm3 (150-375); Red Blood Count 2.85 M/mm3 (4.6-6.20); Red Cell Distribution Width 14.3 % (11.5-14.5); White Blood Count 7.9 K/mm3 (4.5-10.0)
[2024-04-23 07:11] LABS: Alanine Aminotransferase 25 U/L (6-50); Albumin Level 3.4 g/dL (3.5-5.1); Alkaline Phosphatase 70 U/L (38-126); Anion Gap 7 mmol/L (4-12); Aspartate Amino Transferase 31 U/L (17-59); Bilirubin,Total 1.5 mg/dL (0.2-1.3); Blood Urea Nitrogen 13 mg/dL (9-20); Calcium 9.3 mg/dL (8.4-10.2); Carbon Dioxide 25 mmol/L (22-30); Chloride 109 mmol/L (98-107); Estimated CRCL calculation 74 ml/min; Estimated Glomerular Filt Rate > 60; Glucose 120 mg/dL (65-110); Potassium 3.3 mmol/L (3.4-5.0); Sodium 141 mmol/L (137-145)
[2024-04-23] MEDS: ASPIRIN 81 MG CHEWABLE TABLET PO (08:34)
[2024-04-23] MEDS: ATORVASTATIN 20 MG TABLET PO (08:34)
[2024-04-23] MEDS: polyethylene glycoL 3350 17 GM POWD.PACK PO (08:34)
[2024-04-23] MEDS: METOPROLOL TARTRATE 25 MG TABLET PO (08:34)
[2024-04-23] MEDS: APIXABAN 2.5 MG TABLET PO (08:34)
[2024-04-23] MEDS: CHOLECALCIFEROL 1,000 UNITS TABLET 2000 UNITS PO (08:34)
[2024-04-23] MEDS: SENNA/DOCUSATE SODIUM TABLET 2 TAB PO (08:34)
[2024-04-23] MEDS: amLODIPine BESYLATE 5 MG TABLET PO (08:34)
[2024-04-23] MEDS: FAMOTIDINE 20 MG TABLET PO (08:34)
--- NOTE | 2024-04-23 08:35 | PCNWS ---
Weekly nutritional screen. Patient is tolerating current regular diet with adequate intake 50-100%. No weight loss reported. No nutritional recommendations at this time.
--- NOTE | 2024-04-23 10:32 | P.DS_ITS ---
DS: Admitting Diagnosis Discharge Date 04/23/24 Admitting Diagnosis Fall Hip fracture Pneumonia Dementia Hyperlipidemia Hypertension DS: Discharge Diagnosis Discharge Diagnosis (1) Fall: Code(s): W19.XXXA - Unspecified fall, initial encounter Status: Acute (2) Hip fracture: Code(s): S72.009A - Fracture of unspecified part of neck of unspecified femur, initial encounter for closed fracture Status: Acute (3) Pneumonia: Code(s): J18.9 - Pneumonia, unspecified organism Status: Acute (4) Dementia: Code(s): F03.90 - Unspecified dementia, unspecified severity, without behavioral disturbance, psychotic disturbance, mood disturbance, and anxiety Status: Chronic (5) Hyperlipidemia: Code(s): E78.5 - Hyperlipidemia, unspecified Status: Chronic (6) Hypertension: Code(s): I10 - Essential (primary) hypertension Status: Chronic (7) Acute blood loss anemia: Code(s): D62 - Acute posthemorrhagic anemia Status: Acute DS: Summary Hospital Course Reason for hospitalization: Fall Hip fracture Pneumonia Dementia Hyperlipidemia Hypertension Hospital Course: This is an 84-year-old male with a significant past medical history severe Alzheimer's dementia, Anxiety, sick sinus syndrome status post pacemaker, BPH, hypertension, hyperlipidemia, TIA, hard of hearing, vitamin-D deficiency who presented to the hospital for evaluation after a ground level fall landing on his left hip. Patient is not a good historian and most of presenting illness was obtained from the medical record. Patient was found down on the ground after sustaining a fall. The fall was unwitnessed. He immediately started having pain in his left hip and was brought to the hospital for further investigation. 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 Chest x-ray showed mild opacities with bronchial wall thickening in the left lower lung zone, cardiomegaly. Cervical spine CT showed moderate to severe cervical and upper thoracic spondylosis, no acute osseous abnormality. Hip and pelvis x-ray showed mildly displaced and angulated commi nuted intratrochanteric fracture of the proximal left femur. Initial labs showed a white blood cell count of 15.0, hemoglobin 12.3, INR 1.0, chloride 109, creatinine 0.60. A UA was obtained which showed a cloudy in appearance however was unremarkable. Blood cultures were obtained and are pending. EKG shown a flutter with variable block, rate of 89, QTC 426. Patient was given 1 L of normal saline, dilaudid, Rocephin and azithromycin while in the ED. orthopedic surgery was consulted. Patient underwent ORIF of inter trochanteric left femur fracture on 04/18/2024. He has been working with therapy who recommends SNF placement. Vital signs are stable, he is afebrile, he is currently on room air. He is stable for discharge at this time. Pneumonia was ruled out as procalcitonin was less than 0.0, he never required oxygen, and his lungs sounded clear. Antibiotics were stopped. Final diagnosis: Displaced comminuted intratrochanteric fracture of the proximal left femur, status post ORIF left intertrochanteric hip fracture Status at Discharge Cognitive/behavioral status at discharge: Alert and oriented x2 Functional status at discharge: uses cane/walker Overall status at discharge: patient is progressing back to baseline Time Spent with Patient Time attestation: Total time spent providing and/or coordinating discharge services: Time spent: Greater than 30 minutes Exam Narrative: General: In no acute distress, well nourished Cardiac: Normal S1 and S2. No murmur, gallops or friction rubs, peripheral pulses intact. Respiratory: Lungs clear to auscultation, no adventitious lung sounds Gastrointestinal: soft, non-distended, non-tender, normoactive bowel sounds. : voiding without difficulty. Skin:left hip incisions Neuro: Alert DS: Data Data Completed and Pending Completed studies during hospitalization: Head CT Chest x-ray Cervical spine CT Hip/pelvis x-ray Chest x-ray Intraoperative x-ray Pending studies at discharge: None Labs on day of discharge: Labs from last 24 hours 04/23/24 06:02 WBC 7.9 RBC 2.85 L Hgb 8.6 L Hct 25.7 L MCV 90.2 MCH 30.2 MCHC 33.5 RDW 14.3 Plt Count 256 MPV 10.1 Immature Gran % (Auto) 1.1 H Neut % (Auto) 71.3 Lymph % (Auto) 14.4 L Johnston % (Auto) 9.9 H Eos % (Auto) 2.5 Baso % (Auto) 0.8 Lymph # (Auto) 1.13 Johnston # (Auto) 0.8 H Eos # (Auto) 0.2 Baso # (Auto) 0.1 Abs Immat Gran (auto) 0.09 H Absolute Neuts (auto) 5.6 Absolute Nucleated RBC 0.000 Nucleated RBC % 0.0 Sodium 141 Potassium 3.3 L Chloride 109 H Carbon Dioxide 25 Anion Gap 7 BUN 13 Creatinine 0.70 Estim Creat Clear Calc 74 Estimated GFR > 60 Glucose 120 H Calcium 9.3 Total Bilirubin 1.5 H AST 31 ALT 25 Alkaline Phosphatase 70 Total Protein 6.0 L Albumin 3.4 L Procedures/Treatments: ORIF of left intratrochanteric femur fracture Discharge Plan Discharge Attending physician on discharge: Keiko Patrick Consulting providers: Jaciel Pena; Aileen Hammond Discharging Clinician: Josy Palacio Anticipated Discharge Date/Time: 04/23/24 10:38 Patient Disposition: SNF Activity: as tolerated Diet: as tolerated Discharge Instructions: Patient is bed to chair transfers only. He may be partial weight-bearing on the left leg with transfers. He does have severe dementia and may be unable to cooperate for transfers in which case use the Grace lift for [id number] transfers. In the hospital, with max assist, the patient could be brought to a standing position from his bed and could tolerate standing for a while but could he not move his feet to pivot to sit in the chair therefore the Grace lift was used to lift him from the bed and placed him in the chair and to lift him from the chair and place him into bed. Change the dressings in 7 days with similar dressings and after 7 more days discontinue all dressings. Incisions are glued so there are no louis to remove. Obtain CBC on April 28. Call MD if hemoglobin less than 8 or platelets less than 100,000. Please make sure that he has a pillow under each knee and calf wall so he does not develop pressure sores on his heels Patient Instructions: Apixaban (By mouth) Patient Language: Gabonese Stand Alone Forms: General Discharge Information Follow-up/Referrals: Jaciel Pena MD [Physician] - 2 Weeks Discharge Medications: New oxycodone 5 mg tablet 2.5 mg PO Q4H PRN (Reason: pain) Qty: 20 0RF metoprolol tartrate 25 mg Tablet 25 mg PO Q12HR Qty: 60 0RF Eliquis 2.5 mg Tablet 2.5 mg PO Q12HR Qty: 80 0RF sennosides-docusate sodium [Senokot-S] 8.6-50 mg Tablet 2 tab PO BID Qty: 120 0RF acetaminophen 325 mg Tablet 650 mg PO Q4H Qty: 100 0RF polyethylene glycol 3350 [Miralax] 17 gram Powder In Packet 17 g PO QAM Qty: 30 0RF Continued multivitamin [Daily Multivitamin] Tablet 1 tablet PO DAILY atorvastatin 20 mg Tablet 20 mg PO DAILY aspirin 325 mg Tablet 325 mg PO DAILY amlodipine 5 mg Tablet 5 mg PO DAILY acetaminophen 650 mg Tablet 650 mg PO Q4H PRN (Reason: Pain (Scale Score 1-3)) triamcinolone acetonide 0.1 % Cream 1 applic TOPICAL BID PRN (Reason: Rash) lisinopril 40 mg Tablet 40 mg PO DAILY memantine 10 mg Tablet 10 mg PO QPM cholecalciferol (vitamin D3) 50 mcg (2,000 unit) Capsule 50 mcg PO DAILY Date of admission: 04/17/24 15:50 Primary Care Provider: Maximus,Alexander Castillo Admitting Provider: Aggie Ornelas Attending physician on admission: Aggie Ornelas Condition: Improved Quality VTE Prophylaxis VTE prophylaxis: mechanical ordered and pharmacologic ordered Hospitalist MIPS Heart Failure (Exclusion) Patient has history of Heart Transplant or Left Ventricular Assistive Device?: No IF YES, STOP HERE Heart Failure (Qualifier) Patient has current or prior documentation of LVEF less than or equal to 40%, or mod/servere depressed LVSF?: No IF NO, STOP HERE
[2024-04-23 13:20] LABS: SARS-CoV-2 RNA PCR Negative (Negative)
== END 2024-04-23 14:59 | DRG 480 ==
LOC: ANHED 15:56 → ANH3MEDSUR 04-18 08:18
PROVIDERS: Nurse Practitioner Acute Care; Orthopaedic Surgery; Admitting Provider Family Medicine; Emergency Provider Emergency Medicine; Visit Provider Internal Medicine
PROC: 0QS736Z Reposition Left Upper Femur with Intramedullary Internal Fixation Device, Percutaneous Approach (ICD-10-PCS; CPT 27245; principal; 2024-04-18 13:00)
DX: S72.142A Displaced intertrochanteric fracture of left femur, initial encounter for closed fracture (principal); J18.9 Pneumonia, unspecified organism; I48.92 Unspecified atrial flutter; D62 Acute posthemorrhagic anemia; I49.5 Sick sinus syndrome; I10 Essential (primary) hypertension; E78.5 Hyperlipidemia, unspecified; E55.9 Vitamin D deficiency, unspecified; N40.0 Benign prostatic hyperplasia without lower urinary tract symptoms; F41.9 Anxiety disorder, unspecified; F03.90 Unspecified dementia, unspecified severity, without behavioral disturbance, psychotic disturbance, mood disturbance, and anxiety; W19.XXXA Unspecified fall, initial encounter; Z20.822 Contact with and (suspected) exposure to COVID-19; Z95.0 Presence of cardiac pacemaker; Z86.73 Personal history of transient ischemic attack (TIA), and cerebral infarction without residual deficits; Z79.82 Long term (current) use of aspirin
CPT/HCPCS: 36415; 70450; 71045; 72125; 73502; 80053; 81001; 82948; 83735; 84145; 84443; 85025; 85610; 85730; 86850; 86900; 86901; 87040; 87635; 87641; 93005; 96365; 96367; 96375; 97110; 97162; 97166; 97530; 97535; 99199; 99285; A9270; C1713; J0330; J0456; J0690; J0696; J1100; J1171; J2003; J2270; J2405; J2704; J3010; J3370; J7030; J7120